=== PATIENT | female | born 1980 | race Caucasian/White ===

== ENCOUNTER → 2025-09-16 | Outpatient (CLI) | payer OTHER, SELFPAY ==
--- OUTSIDE RECORDS SUMMARY | 2025-09-16 09:18 | XMS RPT_ITS | CCD ---
Author Organization [facility] Care Team Providers Care Clinical Account Executive Name Role Phone Chau Trujillo Primary Care Provider Caesar Pineda DO Primary Care Provider Caesar Pineda DO Primary Care Provider [phone] Caesar Pineda DO Primary Care Provider CAESAR PINEDA Referring Unavailable CAESAR PINEDA Attending Unavailable CAESAR PINEDA Primary Care Unavailable Amanda PAINTINGS RESTORER.Shirlene YATES Unavailable Mike PAINTINGS RESTORER.Micha YATES Unavailable ROWENA VAZQUEZ Attending Unavailable CAESAR PINEDA Primary Care Unavailable CAESAR PINEDA Referring Unavailable HILDA HINOJOSA Attending Unavailable CAESAR PINEDA Primary Care Unavailable Caesar Pineda DO Primary Care Provider DAYLIN MONTERO Referring Unavailable CAESAR PINEDA Primary Care Unavailkelsey e CAESAR PINEDA Attending Unavailable CAESAR PINEDA Primary Care Unavailable ROWENA VAZQUEZ Referring Unavailable CAESAR PINEDA Primary Care Unavailable CAESAR PINEDA Primary Care Unavailable CAESAR PINEDA Attending Unavailable Allergies Allergy Classification Reported Allergen(s) Allergy Type Date of Onset Reaction(s) Facility (1 source) ALLERGIES NOT ON FILE; Translations: [ALLERGIES NOT ON FILE] Propensity to adverse reactions (disorder) [facility] Medications Current Medications Medication Drug Class(es) Dates Sig (Normalized) Sig (Original) ALPRAZolam 0.25 mg disintegrating oral tablet (2 sources) Benzodiazepine Start: 09-07-2020 ALPRAZolam (NIRAVAM) dissolvable tablet 0.25 mg Start: 08-13-2020 ALPRAZolam (NI RAVAM) dissolvable tablet 0.25 mg NEREYDA ROOT EXTRACT ORAL (3 sources) Start: 02-07-2025 ASHCHARY RO OT EXTRACT ORAL 02/07/2025 Active 24 hr buPROPion hydrochloride 150 mg extended release oral tablet (5 sources) Aminoketone take 1 tablet by mouth once daily in the morning buPROPion (WELLBUTRIN XL) 150 MG extended release tablet Take 150 mg by mouth every morning 0 Active Calcium Carb-Cholecalciferol (CALCIUM 1000 + D) 1000-800 MG-UNIT TABS (10 sources) take 2 tablets by mouth once daily Calcium Carb-Cholecalcifero l (CALCIUM 1000 + D) 1000-800 MG-UNIT TABS Take 2 tablets by mouth daily 0 Active take 2 tablets by mouth twice da milan Calcium Carb-Cholecalciferol (CALCIUM 1000 + D) 1000-800 MG-UNIT TABS Take 2 tablets by mouth 2 times daily 0 Active Calcium Carb-Cho lecalciferol (CALCIUM 1000 + D) 1000-800 MG-UNIT TABS Take by mouth 0 Active Calcium Carbonate / vitamin D3 (16 sources) calcium carbonat e/vitamin D3 (CALCIUM 600 + D ORAL) Take by mouth twice daily. Active calcium carbonat e/vitamin D3 (CALCIUM 600 + D ORAL) Take by mouth twice daily. 0 Active Comment on above: Take by mouth twice daily. calcium chloride 0.0014 meq/ml / potassium chloride 0.004 meq/ml / sodium chloride 0.103 meq/ml / sodium lactate 0.028 meq/ml injectable solution (2 sources) Start: 09-07-2020 lactated ringers infusion Start: 08-13-2020 lactated ringe rs infusion clobetasol propionate 0.0005 mg/mg topical ointment (4 sources) Corticosteroid Start: 08-06-2024 clobetasol (TE MOVATE) 0.05 % ointment Apply 1 application to affected area two times a day. 45 g 1 08/06/2024 Active 1 ml diphenhydrAMINE hydrochloride 50 mg/ml cartridge (2 sources) Histamine-1 Receptor Antagonist Start: 09-07-2020 End: 09-07-2020 diphenhydrAMINE (BENADRYL) injection 12.5 mg Start: 08-13-2020 End: 08-13-2020 diphenhydrAMINE (BENADRYL) i njection 12.5 mg 2 ml fentaNYL 0.05 mg/ml injection (4 sources) Opioid Agonist Start: 09-07-2020 fentaNYL (SUBL IMAZE) injection 25 mcg Start: 09-07-2020 fentaNYL (SUBL IMAZE) injection 50 mcg Start: 08-13-2020 fentaNYL (SUBL IMAZE) injection 25 mcg Start: 08-13-2020 fentaNYL (SUBL IMAZE) injection 50 mcg 1 ml hydrALAZINE hydrochloride 20 mg/ml injection (2 sources) Arteriolar Vasodilator Start: 09-07-2020 hydrALAZINE (APRESOLINE) injection 5 mg Start: 08-13-2020 hydrALAZINE (A PRESOLINE) injection 5 mg 1 ml HYDROmorphone hydrochloride 1 mg/ml cartridge (4 sources) Opioid Agonist Start: 09-07-2020 HYDROmorphone (DILAUDID) injection 0.25 mg Start: 09-07-2020 HYDROmorphone (DILAUDID) injection 0.5 mg Start: 08-13-2020 HYDROmorphone (DILAUDID) injection 0.5 mg Start: 08-13-2020 HYDROmorphone (DILAUDID) injection 0.25 mg 4 ml labetalol hydrochloride 5 mg/ml cartridge (2 sources) beta-Adrenergic Brendan Start: 09-07-2020 labetalol (NORMODYNE;TRANDATE) injection 5 mg Start: 08-13-2020 labetalol (NOR MODYNE;TRANDATE) injection 5 mg 10 ml lidocaine hydrochloride 10 mg/ml injection (2 sources) Antiarrhythmic, Amide Local Anesthetic Start: 09-07-2020 End: 09-07-2020 lidocaine PF 1 % injection 1 mL Start: 08-13-2020 End: 08-13-2020 lidocaine PF 1 % injection 1 mL lidocaine 200 mg, sodium bicarbonate 10 mEq in NaCl 0.9% 500 mL solution (TUMESCENT WITHOUT EPINEPHrine) (1 source) Start: 06-05-2022 End: 06-05-2022 lidocaine 200 mg, sodium bicarbonate 10 mEq in NaCl 0.9% 500 mL solution (TUMESCENT WITHOUT EPINEPHrine) lidocaine 400 mg, sodium bicarbonate 20 mEq in NaCl 0.9% 1,000 mL solution (TUMESCENT WITHOUT EPINEPHrine) (1 source) Start: 06-05-2022 End: 06-05-2022 lidocaine 400 mg, sodium bicarbonate 20 mEq in NaCl 0.9% 1,000 mL solution (TUMESCENT WITHOUT EPINEPHrine) 1 ml meperidine hydrochloride 25 mg/ml cartridge (2 sources) Opioid Agonist Start: 09-07-2020 meperidine (DE MEROL) injection 12.5 mg Start: 08-13-2020 meperidine (DE MEROL) injection 12.5 mg Multiple Vitamin (MULTI-VITAMIN DAILY PO) (10 sources) take 1 tablet by tesha th once daily Multiple Vitamin (MULTI-VITAMIN DAILY PO) Take 1 tablet by mouth daily 0 Active Multiple Vitamin (MULTI-VITAMIN DAILY PO) Take by mouth 0 Active Multivitamin capsule (15 sources) take 1 capsule by mo uth once daily Multivitamin capsule Take 1 capsule by mouth once daily. Active take 1 capsule by mouth once darnell ly Multivitamin capsule Take 1 capsule by mouth once daily. 0 Active Comment on above: Take 1 capsule by mo uth once daily. 2 ml ondansetron 2 mg/ml injection (2 sources) Serotonin-3 Receptor Antagonist Start: 09-07-2020 End: 09-07-2020 ondansetron (ZOFRAN) injection 4 mg Start: 08-13-2020 End: 08-13-2020 ondansetron (ZOFRAN) injecti on 4 mg oxyCODONE (1 source) Opioid Agonist Start: 08-13-2020 End: 08-13-2020 oxyCODONE (ROXICODONE) immediate release tablet 5 mg 1 ml promethazine hydrochloride 25 mg/ml injection (2 sources) Phenothiazine Start: 09-07-2020 End: 09-07-2020 promethazine (PHENERGAN) injection 6.25 mg Start: 08-13-2020 End: 08-13-2020 promethazine (PHENERGAN) inj ection 6.25 mg 3 ml sodium chloride 9 mg/ml injection (4 sources) Start: 09-07-2020 sodium chlorid e flush 0.9 % injection 10 mL Start: 08-13-2020 sodium chlorid e flush 0.9 % injection 10 mL Completed/Discontinued Medications Medication Drug Class(es) Dates Sig (Normalized) Sig (Original) acetaminophen 500 mg oral tablet (2 sources) Start: 09-07-2020 End: 09-07-2020 acetaminophen (TYLENOL) tablet 1,000 mg Start: 08-13-2020 End: 08-13-2020 acetaminophen (TYLENOL) tabl et 1,000 mg aspirin 81 mg delayed release oral tablet (16 sources) Platelet Aggregation Inhibitor, Nonsteroidal Anti-inflammatory Drug Start: 09-07-2020 End: 02-19-2025 take 1 tablet by mouth once daily aspirin, enteric coated (ASPIRIN, ENTERIC COATED) 81 mg EC tablet Take 1 tablet by mouth once daily. 09/07/2020 02/19/2025 Discontinued Comment on above: Take 81 mg by mouth once daily. ceFAZolin 2000 mg injection (1 source) Cephalosporin Antibacterial Start: 08-13-2020 End: 08-13-2020 ceFAZolin (ANCEF) 2 g in dextrose 4 % 100 mL IVPB (premix) clopidogrel 75 mg oral tablet (11 sources) P2Y12 Platelet Inhibitor Start: 01-17-2021 End: 02-19-2025 take 1 tablet by mouth once daily clopidogrel (PLAVIX) 75 mg tablet Take 1 tablet by mouth once daily. 01/17/2021 02/19/2025 Discontinued Start: 09-07-2020 clopidogrel (P LAVIX) tablet 300 mg Start: 09-07-2020 take 1 tablet by tseha th once daily clopidogrel (PLAVIX) 75 MG tablet Take 1 tablet by mouth daily 30 tablet 3 09/07/2020 Active DULoxetine 20 mg delayed release oral capsule (9 sources) Serotonin and Norepinephrine Reuptake Inhibitor Start: 01-29-2024 End: 02-19-2025 take 2 capsules by mouth once daily DULoxetine (CYMBALTA) 20 mg capsule Indications: Fatigue, unspecified type Take 2 capsules by mouth once daily. 180 capsule 3 01/29/2024 02/19/2025 Discontinued Start: 01-25-2024 End: 01-29-2024 take 2 capsules by mouth twice daily DULoxetine (CYMBALTA) 20 mg capsule Indications: Fatigue, unspecified type Take 2 capsules by mouth two times a day. 360 capsule 3 01/25/2024 01/29/2024 Discontinued Start: 09-28-2023 End: 01-25-2024 take 1 capsule by mouth once daily DULoxetine (CYMBALTA) 20 mg capsule Indications: Fatigue, unspecified type Take 1 capsule by mouth once daily. 30 capsule 5 09/28/2023 01/25/2024 Discontinued Start: 12-12-2022 End: 01-11-2023 take 1 capsule by mouth once daily DULoxetine (CYMBALTA) 20 mg capsule Indications: Fatigue, unspecified type Take 1 capsule by mouth once daily. 30 capsule 5 12/12/2022 01/11/2023 Active Comment on above: Take 1 capsule by mo [facility] once daily. famotidine 20 mg oral tablet (2 sources) Histamine-2 Receptor Antagonist Start: 09-07-2020 End: 09-07-2020 famotidine (PEPCID) tablet 20 mg Start: 08-13-2020 End: 08-13-2020 famotidine (PEPCID) tablet 2 0 mg FLUoxetine 10 mg oral capsule (8 sources) Serotonin Reuptake Inhibitor Start: 04-18-2022 End: 12-12-2022 take 2 capsules by mouth once daily FLUoxetine (PROZAC) 10 mg capsule Take 2 capsules by mouth once daily. 90 capsule 3 04/18/2022 12/12/2022 Discontinued Start: 08-15-2021 End: 04-18-2022 take 1 capsule by mouth once daily FLUoxetine (PROZAC) 10 mg capsule Take 1 capsule by mouth once daily. 90 capsule 3 08/15/2021 04/18/2022 Discontinued Comment on above: Take 2 capsules by m [facility] once daily. Take 1 capsule by mo [facility] once daily. gabapentin 100 mg oral capsule (2 sources) Anti-epileptic Agent Start: 09-07-2020 End: 09-07-2020 gabapentin (NEURONTIN) capsule 100 mg Start: 08-13-2020 End: 08-13-2020 gabapentin (NEURONTIN) capsu le 100 mg iopamidol (ISOVUE-370) 76 % injection 75 mL (1 source) Start: 06-10-2020 End: 06-10-2020 iopamidol (ISOVUE-370) 76 % injection 75 mL iv contrast (will be provided with radiology test) (1 source) Start: 03-13-2025 End: 03-14-2025 iv contrast (will be provided with radiology test) Indications: At high risk for breast cancer MRI Breast ASHLEY Inject, intravenously, once for 1 dose. No IV access, insert saline lock prior to the beginning of sedation, infusion, injection of imaging exam. Discontinue saline lock post exam. If Pt has a central line or IVAD, may access for administration according to line specific nursing protocol. Once exam is complete flush line and de-access according to line specific nursing protocol in the MR contrast administration guidelines link 1 each 03/13/2025 03/14/2025 vitamin b12 1 mg/ml injectable solution (1 source) Vitamin B12 Start: 12-12-2022 End: 12-12-2022 cyanocobalamin 1,000 mcg injection Start: 12-12-2022 End: 12-12-2022 cyanocobalamin 1,000 mcg inj ection Problems Active Problems Problem Classification Problem Date Documented Date Episodic/Chronic Anxiety disorders (1 source) Generalized anxiety disorder; Translations: [PARADISE (generalized anxiety disorder)] Onset: 07-31-2025 Chronic Disorders of lipid metabolism (1 source) Mixed hyperlipidemia; Translations: [Mixed hyperlipidemia] 02-12-2024 Chronic Malaise and fatigue (2 sources) Fatigue; Translations: [Other fatigue] Episodic Nonmalignant breast conditions (3 sources) Breast finding ; Translations: [Dense breast tissue] Onset: 04-05-2025 06-28-2024 Episodic Other aftercare (1 source) Surgical follow-up; Translations: [Encounter for surgical aftercare following surgery on the circulatory system] Episodic Other aftercare (1 source) Postoperative visit; Translations: [Encounter for other specified surgical aftercare] Episodic Other diseases of veins and lymphatics (1 source) Obstruction of iliac vein; Translations: [Obstruction of iliac vein] Other female genital disorders (1 source) Vaginal hymen finding; Translations: [Other specified noninflammatory disorders of vagina] Episodic Other liver diseases (1 source) Elevated liver enzymes level; Translations: [Abnormal levels of other serum enzymes] 02-12-2024 Episodic Other nutritional; endocrine; and metabolic disorders (5 sources) Inherited disorder of folate metabolism; 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 ] Onset: 08-05-2018 07-05-2020 Chronic Residual codes; unclassified (3 sources) At high risk for breast cancer; Translations: [Other specified personal risk factors, not elsewhere classified] Onset: 04-05-2025 04-05-2025 Episodic Residual codes; unclassified (2 sources) Family history of breast cancer; Translations: [Family history of malignant neoplasm of breast] Onset: 04-05-2025 04-05-2025 Episodic Residual codes; unclassified (1 source) Other specified personal risk factors, not elsewhere classified; Translations: [At high risk for breast cancer] Onset: 03-13-2025 Episodic Unclassified (1 source) Dense breast tissue; Translations: [Dense breast tissue] Onset: 03-13-2025 Varicose veins of lower extremity (4 sources) Varicose veins of lower extremity; Translations: [Varicose veins of left lower extremity with other complications] Episodic Past or Other Problems Problem Classification Problem Date Documented Date Episodic/Chronic Inflammatory diseases of female pelvic organs (6 sources) Acute vaginitis; Translations: [Acute vaginitis] Onset: 08-06-2024 08-06-2024 Episodic Other complications of (20 sources) Multigravida of advanced maternal age; Translations: [Supervision of elderly multigravida, first trimester] Onset: 05-31-2016 Resolved: 08-05-2018 07-05-2020 Episodic Other complications of (20 sources) Inherited disorder of folate metabolism; Translations: [Endocrine, nutritional and metabolic diseases complicating , unspecified trimester] Onset: 08-05-2018 07-05-2020 Episodic Other diseases of veins and lymphatics (8 sources) Obstruction of iliac vein; Translations: [Compression of vein] Onset: 09-07-2020 09-07-2020 Episodic Other female genital disorders (10 sources) Pelvic congestion syndrome; Translations: [Other specified conditions associated with female genital organs and menstrual cycle] Onset: 08-14-2020 08-14-2020 Episodic Other inflammatory condition of skin (5 sources) Pruritus ani; Translations: [Pruritus ani] Onset: 08-06-2024 08-06-2024 Episodic Other and delivery including normal (20 sources) Normal labor; Translations: [Encounter for full-term uncomplicated delivery] Onset: 03-11-2019 07-05-2020 Episodic Other screening for suspected conditions (not mental disorders or infectious disease) (14 sources) Patient encounter status; Translations: [Encounter for screening mammogram for malignant neoplasm of breast] Onset: 03-07-2024 10-03-2023 Episodic Unclassified (2 sources) Patient encounter status 04-05-2025 Results Test Name Value Interpretation Reference Range Facil ity CNOVon 07-31-2025 CNOV Office Visit ([facility]) GUSBAM ([id number]) 1980 F Date Time Provider Department 07/31/25 11:15 AM CAESAR PINEDA [facility] During your visit today, we recorded the following information about you: Pulse Blood pressure Weight Height 79/minute 130/70 65.2 kg 1.727 m Last Period 07/10/25 Caesar Pineda, DO 07/31/2025 12:17 PM Signed Memory Problems (Patient having issues with memory,lots of brain fog since perimenopause ) Anxiety The history is provided by the patient. No seismic interpreter was used. Anxiety Pertinent negatives include no agitation, confusion, delusions, hallucinations, intoxication, loss of consciousness, seizures, self-injury, somnolence, violence or weakness. HISTORY REVIEWED PAST MEDICAL HISTORY Diagnosis Date Abnormal Pap smear of cervix Blood dyscrasia mthfr Dense breast tissue 04/05/2025 Pelvic congestion syndrome hemorrhage (HCC) PAST SURGICAL HISTORY Procedure Laterality Date ENDOVENOUS RF ABLATION SAPHENOUS VEIN Left 05/25/2022 left leg, Dr Hunt EXTRACTION ERUPTED TOOTH/EXR FAMILY HISTORY Problem Relation Age of Onset Breast Cancer Mother 52 BRCA negative Coronary Artery Disease Father other (basal cell) Father other (squamous) Father Stroke Brother 48 Melanoma Paternal Aunt cause of Ovarian cancer No Family History Social History Social History Narrative Not on file Allergies: ALLERGIES No Known Allergies Medications: progesterone micronized (PROMETRIUM) 100 mg capsule Take 100 mg by mouth once daily. ASHWAGANDHA ROOT EXTRACT ORAL clobetasol (TEMOVATE) 0.05 % ointment Apply 1 application to affected area two times a day. Multivitamin capsule Take 1 capsule by mouth once daily. calcium carbonate/vitamin D3 (CALCIUM 600 + D ORAL) Take by mouth twice daily. Problem List: ACTIVE PROBLEM LIST At High Risk for Breast Cancer - 04/05/2025 Family History of Breast Cancer - 04/05/2025 Dense Breast Tissue - 04/05/2025 Acute Vaginitis - 08/06/2024 Rectal Itching - 08/06/2024 Normal Labor (Hcc) - 03/11/2019 Comment: GBS+PCN Pit/epi prn AROM after abx Wilkinson (Advanced Maternal Age) Multigravida 35+, First Trimester ([facility]) - 08/05/2018 Comment: Low risk genetic testing Mthfr Deficiency Complicating ([facility]) - 08/05/2018 Comment: Taking aspirin throughout this Review of Systems Neurological: Negative for seizures, loss of consciousness and weakness. Psychiatric/Behavioral : Negative for agitation, confusion, hallucinations and self-injury. The patient is nervous/anxious. Physical Exam Vitals and nursing note reviewed. Constitutional: Appearance: She is well-developed. HENT: Head: Normocephalic and atraumatic. Eyes: Conjunctiva/sclera: Conjunctivae normal. Pupils: Pupils are equal, round, and reactive to light. Cardiovascular: Rate and Rhythm: Normal rate and regular rhythm. Heart sounds: Normal heart sounds. Pulmonary: Effort: Pulmonary effort is normal. Breath sounds: Normal breath sounds. Abdominal: General: Bowel sounds are normal. Palpations: Abdomen is soft. Skin: General: Skin is warm and dry. Findings: No rash. Neurological: Mental Status: She is alert and oriented to person, place, and time. Psychiatric: Behavior: Behavior normal. Thought Content: Thought content normal. Judgment: Judgment normal. Comments: No suicidal or homicidal ideation BP 130/70 (BP Site: Left Arm, BP Position: Sitting) Pulse 79 Ht 172.7 cm (5' 8) Wt 65.2 kg (143 lb 11.8 oz) LMP 07/10/2025 (Exact Date) SpO2 100% BMI 21.86 kg/m? ASSESSMENT/PLAN: 1. PARADISE (generalized anxiety disorder) - ICD9: 300.02, ICD10: F41.1 - uncontrolled start low dose. - FLUOXETINE 10 MG CAPSULE Caesar Pineda DO Allergies As of Date: 07/31/2025 (No Known Allergies) Date Reviewed: 07/31/2025 Reviewed by: Caesar Pineda DO - Fully Assessed Reason for Visit: Memory Problems [3820] Cmt: Patient having issues with memory,lots of brain fog since perimenopause Anxiety [9] Primary Visit Diagnosis:PARADISE (generalized anxiety disorder) [F41.1] Order(s):FLUoxetine (PROZAC) 10 mg capsuleTake 1 capsule by mouth once daily.Disp: 90 capsuleRfl: 3 Prescriptions as of 07/31/2025 - progesterone micronized (PROMETRIUM) 100 mg capsule Take 100 mg by mouth once daily. - FLUoxetine (PROZAC) 10 mg capsule Take 1 capsule by mouth once daily. - ASHWAGANDHA ROOT EXTRACT ORAL - clobetasol (TEMOVATE) 0.05 % ointment Apply 1 application to affected area two times a day. - Multivitamin capsule Take 1 capsule by mouth once daily. - calcium carbonate/vitamin D3 (CALCIUM 600 + D ORAL) Take by mouth twice daily. Problem List As Of Date 07/31/2025 Noted Resolved Multigravida of advanced maternal age in second*05/31/2016 08/05/2018 AMA (advanced maternal age) multigravida 35+, f* (more content not included)... Normal [facility] CT CARDIAC SCORING WO IV CON TRASTon 06-01-2025 CT CARDIAC SCORING WO IV CONTRAST Interpreted By: Micha Moran, STUDY: CT CARDIAC SCORING WO IV CONTRAST; 06/01/2025 8:23 am INDICATION: Signs/Symptoms:rommel galo ,Z13.6 Encounter for screening for cardiovascular disorders COMPARISON: None. ACCESSION NUMBER(S): [id number] ORDERING CLINICIAN: DAYLIN MONTERO TECHNIQUE: Using prospective ECG gating, CT scan of the coronary arteries was performed without intravenous contrast. Coronary calcium scoring was performed according to the method of Agatston. FINDINGS: The score and distribution of calcium in the coronary arteries is as follows: LM 0 LAD 0 LCx 0 RCA 0 Total 0 The visualized mid/lower ascending thoracic aorta measures 3.1 cm in diameter. The heart is normal in size. No pericardial effusion is present. No gross evidence of mediastinal or hilar lymphadenopathy or masses is identified. The visualized segments of the lungs are normally expanded. The visualized subdiaphragmatic structures appear intact. IMPRESSION: 1. Coronary artery calcium score of 0*. *Coronary artery calcium scoring may be helpful in predicting the risk for future coronary heart disease events. According to the [place] [employer] Clinical Expert Consensus Task Force, such testing provides important prognostic information in patients with more than one coronary heart disease risk factor. The coronary artery calcium score correlates with the annual risk of a non-fatal myocardial infarction or coronary heart disease . Coronary artery score Annual Risk 0-99 0.4% 100-399 1.3% >400 2.4% These three breakpoints correspond to lower, intermediate and high risk states for future coronary events. Such information should be used, along with appropriate clinical judgment, to make decisions regarding the intensity of risk factor management strategies to treat blood lipids and to modify other non-lipid coronary risk factors. Reference: [place] P et al. Circulation. 2007; 115:402-426 MACRO: None Signed by: Micha Moran 06/01/2025 3:27 PM Dictation workstation: [id number] [facility] CT for calcium scoring WO co ntrast and CTA W contrast IV Heart and coronary arterieson 06-01-2025 1. Coronary artery calcium score of 0*. *Coronary artery calcium scoring may be helpful in predicting the risk for future coronary heart disease events. According to the [place] [employer] Clinical Expert Consensus Task Force, such testing provides important prognostic information in patients with more than one coronary heart disease risk factor. The coronary artery calcium score correlates with the annual risk of a non-fatal myocardial infarction or coronary heart disease . Coronary artery score Annual Risk 0-99 0.4% 100-399 1.3% >400 2.4% These three breakpoints correspond to lower, intermediate and high risk states for future coronary events. Such information should be used, along with appropriate clinical judgment, to make decisions regarding the intensity of risk factor management strategies to treat blood lipids and to modify other non-lipid coronary risk factors. Reference: [place] P et al. Circulation. 2007; 115:402-426 MACRO: None Signed by: Micha Moran 06/01/2025 3:27 PM Dictation workstation: [id number] Interpreted By: Micha Moran, STUDY: CT CARDIAC SCORING WO IV CONTRAST; 06/01/2025 8:23 am INDICATION: Signs/Symptoms:screeni ng. ,Z13.6 Encounter for screening for cardiovascular disorders COMPARISON: None. ACCESSION NUMBER(S): [id number] ORDERING CLINICIAN: DAYLIN MONTERO TECHNIQUE: Using prospective ECG gating, CT scan of the coronary arteries was performed without intravenous contrast. Coronary calcium scoring was performed according to the method of Agatston. FINDINGS: The score and distribution of calcium in the coronary arteries is as follows: LM 0 LAD 0 LCx 0 RCA 0 Total 0 The visualized mid/lower ascending thoracic aorta measures 3.1 cm in diameter. The heart is normal in size. No pericardial effusion is present. No gross evidence of mediastinal or hilar lymphadenopathy or masses is identified. The visualized segments of the lungs are normally expanded. The visualized subdiaphragmatic structures appear intact. [facility] Bella Moran MD - 06/01/2025 Interpreted By: Micha Moran, STUDY: CT CARDIAC SCORING WO IV CONTRAST; 06/01/2025 8:23 am INDICATION: Signs/Symptoms:rommel galo ,Z13.6 Encounter for screening for cardiovascular disorders COMPARISON: None. ACCESSION NUMBER(S): [id number] ORDERING CLINICIAN: DAYLIN MONTERO TECHNIQUE: Using prospective ECG gating, CT scan of the coronary arteries was performed without intravenous contrast. Coronary calcium scoring was performed according to the method of Agatston. FINDINGS: The score and distribution of calcium in the coronary arteries is as follows: LM 0 LAD 0 LCx 0 RCA 0 Total 0 The visualized mid/lower ascending thoracic aorta measures 3.1 cm in diameter. The heart is normal in size. No pericardial effusion is present. No gross evidence of mediastinal or hilar lymphadenopathy or masses is identified. The visualized segments of the lungs are normally expanded. The visualized subdiaphragmatic structures appear intact. IMPRESSION: 1. Coronary artery calcium score of 0*. *Coronary artery calcium scoring may be helpful in predicting the risk for future coronary heart disease events. According to the [employer] Clinical Expert Consensus Task Force, such testing provides important prognostic information in patients with more than one coronary heart disease risk factor. The coronary artery calcium score correlates with the annual risk of a non-fatal myocardial infarction or coronary heart disease . Coronary artery score Annual Risk 0-99 0.4% 100-399 1.3% >400 2.4% These three breakpoints correspond to lower, intermediate and high risk states for future coronary events. Such information should be used, along with appropriate clinical judgment, to make decisions regarding the intensity of risk factor management strategies to treat blood lipids and to modify other non-lipid coronary risk factors. Reference: Kenroy P et al. Circulation. 2007; 115:402-426 MACRO: None Signed by: Micha Moran 06/01/2025 3:27 PM Dictation workstation: [id number] [facility] Work Phone: Radiology Study observation (narrative) [facility] Work Phone: CT for calcium scoring WO co ntrast and CTA W contrast IV Heart and coronary arteriesOrdered By: Bella Moran on 06-01-[address] [facility] Work Phone: DBT Breast - bilateral susanae edwige 03-17-2025 IMPRESSION: There is no mammographic evidence of malignancy in either breast. Routine screening mammogram is recommended. Annual mammogram will be due in 1 year. BI-RADS Category 1: Negative RISK: Based on the [facility] risk assessment model, this patient has a 20.7% lifetime risk of developing breast cancer. However, this is only an estimate based on available history provided on the patient's questionnaire. Because patients with a lifetime risk of 20% or greater may benefit from additional supplemental screening, we encourage a full breast clinical evaluation and comprehensive breast cancer risk assessment to guide further decision making. For more information regarding the management of patients at high risk for developing breast cancer, providers should refer to the following [facility] Path: Increased Risk for Breast Cancer Care Path v.5. Additionally, a referral to the [facility] is also appropriate. Interpreting Radiologist: Charo Fajardo M.D. Electronically signed on: 03/17/2025 Litigation Associate: UNRULY Transcribe Date/Time: Mar 16 2025 2:45P Dictated by: CHARO FAJARDO MD This examination was interpreted and the report reviewed and electronically signed by: CHARO FAJARDO MD on Mar 17 2025 10:34AM [facility] DIVISION OF RADIOLOGY * * *Final Report* * * DATE OF EXAM: Mar 16 2025 2:55PM [facility] 0582 - [facility] SCREENING W SHAJI / PROCEDURE REASON: Visit for screening mammogram * * * * Physician Interpretation * * * * RESULT: [facility] [address] [place] [address] #[id number] - [facility] SCREENING W SHAJI HISTORY: 45 year-old patient presents for screening. Patient is asymptomatic in both breasts. Patient states no personal history of breast cancer. The patient has a family history of breast cancer. COMPARISON STUDIES: The present examination has been compared to prior imaging studies dated 08/03/2020 (mammogram), 12/06/2021 (mammogram) and 03/07/2024 (mammogram). MAMMOGRAM TECHNIQUE: The study was acquired using full field digital technology and interpreted from soft copy. Digital Breast Tomosynthesis (DBT) images were obtained and used to assist in the interpretation of this examination. MAMMOGRAM FINDINGS: The breasts are heterogeneously dense, which may obscure small masses. No suspicious masses, calcifications or other abnormalities are seen in either breast. There are no significant interval changes. DIVISION OF RADIOLOGY Provider, [facility] - 03/17/2025 * * *Final Report* * * DATE OF EXAM: Mar 16 2025 2:55PM [facility] 0582 - [facility] SCREENING W SHAJI / PROCEDURE REASON: Visit for screening mammogram * * * * Physician Interpretation * * * * RESULT: [facility] [address] [place] [address] #[id number] - [facility] SCREENING W SHAJI HISTORY: 45 year-old patient presents for screening. Patient is asymptomatic in both breasts. Patient states no personal history of breast cancer. The patient has a family history of breast cancer. COMPARISON STUDIES: The present examination has been compared to prior imaging studies dated 08/03/2020 (mammogram), 12/06/2021 (mammogram) and 03/07/2024 (mammogram). MAMMOGRAM TECHNIQUE: The study was acquired using full field digital technology and interpreted from soft copy. Digital Breast Tomosynthesis (DBT) images were obtained and used to assist in the interpretation of this examination. MAMMOGRAM FINDINGS: The breasts are heterogeneously dense, which may obscure small masses. No suspicious masses, calcifications or other abnormalities are seen in either breast. There are no significant interval changes. IMPRESSION IMPRESSION: There is no mammographic evidence of malignancy in either breast. Routine screening mammogram is recommended. Annual mammogram will be due in 1 year. BI-RADS Category 1: Negative RISK: Based on the [facility] risk assessment model, this patient has a 20.7% lifetime risk of developing breast cancer. However, this is only an estimate based on available history provided on the patient's questionnaire. Because patients with a lifetime risk of 20% or greater may benefit from additional supplemental screening, we encourage a full breast clinical evaluation and comprehensive breast cancer risk assessment to guide further decision making. For more information regarding the management of patients at high risk for developing breast cancer, providers should refer to the following [facility]: Increased Risk for Breast Cancer Care Path v.5. Additionally, a referral to the [facility] is also appropriate. Interpreting Radiologist: Charo Fajardo M.D. Electronically signed on: 03/17/2025 Litigation Associate: UNRULY Transcribe Date/Time: Mar 16 2025 2:45P Dictated by: CHARO FAJARDO MD This examination was interpreted and the report reviewed and electronically signed by: CHARO FAJARDO MD on Mar 17 2025 10:34AM EST [facility] DBT Breast - bilateral scree ningOrdered By: [facility] Provider on 03-17-2025 [facility] DBT Breast - bilateral scree ningon 03-16-2025 Radiology Study observation (narrative) [facility] SCREENING W TOMOon 03-16 [facility] SCREENING W SHAJI * * *Final Report* * * DATE OF EXAM: Mar 16 2025 2:55PM [facility] 0582 - [facility] SCREENING W SHAJI / PROCEDURE REASON: Visit for screening mammogram * * * * Physician Interpretation * * * * RESULT: [facility] [address] [place], [place] [id number] #[id number] - [facility] SCREENING W SHAJI HISTORY: 45 year-old patient presents for screening. Patient is asymptomatic in both breasts. Patient states no personal history of breast cancer. The patient has a family history of breast cancer. COMPARISON STUDIES: The present examination has been compared to prior imaging studies dated 08/03/2020 (mammogram), 12/06/2021 (mammogram) and 03/07/2024 (mammogram). MAMMOGRAM TECHNIQUE: The study was acquired using full field digital technology and interpreted from soft copy. Digital Breast Tomosynthesis (DBT) images were obtained and used to assist in the interpretation of this examination. MAMMOGRAM FINDINGS: The breasts are heterogeneously dense, which may obscure small masses. No suspicious masses, calcifications or other abnormalities are seen in either breast. There are no significant interval changes. IMPRESSION: There is no mammographic evidence of malignancy in either breast. Routine screening mammogram is recommended. Annual mammogram will be due in 1 year. BI-RADS Category 1: Negative RISK: Based on the [facility] risk assessment model, this patient has a 20.7% lifetime risk of developing breast cancer. However, this is only an estimate based on available history provided on the patient's questionnaire. Because patients with a lifetime risk of 20% or greater may benefit from additional supplemental screening, we encourage a full breast clinical evaluation and comprehensive breast cancer risk assessment to guide further decision making. For more information regarding the management of patients at high risk for developing breast cancer, providers should refer to the following [facility] Path: Increased Risk for Breast Cancer Care Path v.5. Additionally, a referral to the [facility] is also appropriate. Interpreting Radiologist: Charo Fajardo M.D. Electronically signed on: 03/17/2025 Litigation Associate: UNRULY Transcribe Date/Time: Mar 16 2025 2:45P Dictated by: CHARO FAJARDO MD This examination was interpreted and the report reviewed and electronically signed by: CHARO FAJARDO MD on Mar 17 2025 10:34AM EST [id number] Normal [facility] CNOVon 03-13-2025 CNOV Office Visit (HEMBAK ) BAM WEBER ([id number]) 1980 F Date Time Provider Department 03/13/25 3:00 PM ROWENA VAZQUEZ During your visit today, we recorded the following information about you: Pulse Blood pressure Weight Height 76/minute 130/85 65.3 kg 1.727 m Rowena Vazquez APRN.CNP 04/05/2025 3:50 PM Signed Rowena Vazquez APRN-[facility] [address] [place], [place] [id number] Date of Visit: 03/13/2025 Patient Name: Bam Weber Date of : 1980 New Patient Visit SUBJECTIVE Chief Complaint: Patient presents with: Consult: Patient presents as a consult HPI Bam Weber is a 45 year old female who presents today for new patient consultation related to family history of breast cancer. Family history includes breast cancer in her mother, diagnosed at age 52, BRCA negative. She does not have a past medical history of breast biopsy. She denies current breast concerns including palpable breast lumps or masses, enlarged lymph nodes, pain, tenderness, skin changes, erythema, nipple discharge or breast trauma. Breast density category C - heterogeneously dense There are no exam notes on file for this visit. AGE AT [place] 8 AGE AT FIRST 34 FAMILY HISTORY OF BREAST CANCER Yes (IF YES) NUMBER OF FIRST DEGREE RELATIVES WITH BREAST CANCER 1 PREVIOUS BREAST BIOPSIES No (IF YES) PREVIOUS BREAST BIOPSY WITH ATYPICAL HYPERPLASIA No RACE [place] MODEL RISK 5 YEAR 2 [place] MODEL RISK LIFETIME 19.6 GENETIC TESTING No Family and personal medical histories reviewed and updated. REVIEW OF SYSTEMS: Complete 10 system ROS done and negative except as stated above in the HPI. Current Outpatient Medications Medication Sig Dispense Refill ASHWAGANDHA ROOT EXTRACT ORAL clobetasol (TEMOVATE) 0.05 % ointment Apply 1 application to affected area two times a day. 45 g 1 Multivitamin capsule Take 1 capsule by mouth once daily. calcium carbonate/vitamin D3 (CALCIUM 600 + D ORAL) Take by mouth twice daily. No current facility-administered medications for this visit. I have performed the physical exam on 03/13/2025 - all new findings noted below. PAST MEDICAL HISTORY Diagnosis Date Abnormal Pap smear of cervix Blood dyscrasia mthfr Dense breast tissue 04/05/2025 Pelvic congestion syndrome hemorrhage (HCC) PAST SURGICAL HISTORY Procedure Laterality Date ENDOVENOUS RF ABLATION SAPHENOUS VEIN Left 05/25/2022 left leg, Dr Hunt EXTRACTION ERUPTED TOOTH/EXR Social History Tobacco Use Smoking status: Never Smokeless tobacco: Never Vaping Use Vaping status: Never Used Substance Use Topics Alcohol use: Yes Comment: social Drug use: No FAMILY HISTORY Problem Relation Age of Onset Breast Cancer Mother 52 BRCA negative Coronary Artery Disease Father other (basal cell) Father other (squamous) Father Stroke Brother 48 Melanoma Paternal Aunt cause of Ovarian cancer No Family History The ROS, medical, surgical, family, and social history were reviewed by Rowena Vazquez APRN.CLINICAL DIRECTOR ALLERGIES No Known Allergies Current Outpatient Medications Medication Sig KWESIA ROOT EXTRACT ORAL clobetasol (TEMOVATE) 0.05 % ointment Apply 1 application to affected area two times a day. Multivitamin capsule Take 1 capsule by mouth once daily. calcium carbonate/vitamin D3 (CALCIUM 600 + D ORAL) Take by mouth twice daily. No current facility-administered medications for this visit. OBJECTIVE BP 130/85 Pulse 76 Ht 172.7 cm (5' 8) Wt 65.3 kg (144 lb) LMP 02/12/2025 (Exact Date) BMI 21.90 kg/m? BMI 21.90 kg/(m2) Physical Exam BREAST EXAM: RIGHT Skin changes: No Nipple retraction / inversion: No Axillary adenopathy: No Supraclavicular adenopathy: No Palpable masses: No Tenderness: No Nipple discharge: No Lymphedema: No LEFT Skin changes: No Nipple retraction / inversion: No Axillary adenopathy: No Supraclavicular adenopathy: No Palpable masses: No Tenderness: No Nipple discharge: No Lymphedema: No The sensitive examination was discussed with the Patient or Patient's Authorized Perinatal Tech. As applicable, any other physician, advance practice provider, medical student, or other health professional student that will be observing or involved in the sensitive examination for educational or training purposes was discussed with the Patient or Authorized Perinatal Tech. The Patient or Authorized Perinatal Tech has agreed to proceed with the sensitive examination. (Sensitive examination includes inspection and/or palpation of the breasts, pelvis, prostate and anorectal regions) ASSESSMENT/PLAN: 1. At high risk for breast cancer - ICD9: V49.89, ICD10: Z91.89 (primary diagnosis) - MRI BREAST WO/W IVCON BILATERAL - IV CONTRAST (RADIOLOGY P (more content not included)... Normal [facility] CNOVon 02-19-2025 CNOV Office Visit (STFLF) BAM WEBER ([id number]) 1980 F Date Time Provider Department 02/19/25 9:45 AM [facility] During your visit today, we recorded the following information about you: Temperature Pulse Blood pressure Weight 98.2 degrees 74/minute 121/78 65.4 kg Last Period 02/12/25 Caesar Pineda DO 02/19/2025 10:13 AM Signed Well Adult (Wellness) The history is provided by the patient. No seismic interpreter was used. HISTORY REVIEWED PAST MEDICAL HISTORY Diagnosis Date Abnormal Pap smear of cervix Blood dyscrasia mthfr Pelvic congestion syndrome hemorrhage (HCC) PAST SURGICAL HISTORY Procedure Laterality Date ENDOVENOUS RF ABLATION SAPHENOUS VEIN Left 05/25/2022 left leg, Dr Hunt EXTRACTION ERUPTED TOOTH/EXR FAMILY HISTORY Problem Relation Age of Onset Breast Cancer Mother Stroke Brother Coronary Artery Disease Father Social History Social History Narrative Not on file Allergies: ALLERGIES No Known Allergies Medications: ASHWAGANDHA ROOT EXTRACT ORAL clobetasol (TEMOVATE) 0.05 % ointment Apply 1 application to affected area two times a day. Multivitamin capsule Take 1 capsule by mouth once daily. calcium carbonate/vitamin D3 (CALCIUM 600 + D ORAL) Take by mouth twice daily. DULoxetine (CYMBALTA) 20 mg capsule Take 2 capsules by mouth once daily. (Patient not taking: Reported on 08/06/2024) aspirin, enteric coated (ASPIRIN, ENTERIC COATED) 81 mg EC tablet Take 1 tablet by mouth once daily. (Patient not taking: Reported on 08/06/2024) clopidogrel (PLAVIX) 75 mg tablet Take 1 tablet by mouth once daily. (Patient not taking: Reported on 08/06/2024) Problem List: ACTIVE PROBLEM LIST Acute Vaginitis - 08/06/2024 Rectal Itching - 08/06/2024 Normal Labor ([facility]) - 03/11/2019 Comment: GBS+PCN Pit/epi prn AROM after abx Wilkinson (Advanced Maternal Age) Multigravida 35+, First Trimester ([facility]) - 08/05/2018 Comment: Low risk genetic testing Mthfr Deficiency Complicating ([facility]) - 08/05/2018 Comment: Taking aspirin throughout this Review of Systems All other systems reviewed and are negative. Physical Exam Vitals and nursing note reviewed. Constitutional: Appearance: Normal appearance. She is well-developed and normal weight. HENT: Head: Normocephalic and atraumatic. Right Ear: Tympanic membrane, ear canal and external ear normal. Left Ear: Tympanic membrane, ear canal and external ear normal. Nose: Nose normal. No congestion. Mouth/Throat: Mouth: Mucous membranes are moist. Pharynx: Oropharynx is clear. No oropharyngeal exudate. Eyes: Conjunctiva/sclera: Conjunctivae normal. Pupils: Pupils are equal, round, and reactive to light. Cardiovascular: Rate and Rhythm: Normal rate and regular rhythm. Heart sounds: Normal heart sounds. No murmur heard. Pulmonary: Effort: Pulmonary effort is normal. No respiratory distress. Breath sounds: Normal breath sounds. No wheezing or rales. Chest: Chest wall: No tenderness. Abdominal: General: Bowel sounds are normal. Palpations: Abdomen is soft. Tenderness: There is no guarding or rebound. Musculoskeletal: General: No swelling or tenderness. Normal range of motion. Cervical back: Normal range of motion and neck supple. Lymphadenopathy: Cervical: No cervical adenopathy. Skin: General: Skin is warm and dry. Capillary Refill: Capillary refill takes less than 2 seconds. Findings: No erythema or rash. Neurological: General: No focal deficit present. Mental Status: She is alert and oriented to person, place, and time. Mental status is at baseline. Psychiatric: Mood and Affect: Mood normal. Behavior: Behavior normal. Thought Content: Thought content normal. Judgment: Judgment normal. BP 121/78 (BP Site: Left Arm, BP Position: Sitting, BP Cuff Size: Regular Adult) Pulse 74 Temp 36.8 ?C (98.2 ?F) (Temporal) Wt 65.4 kg (144 lb 2.9 oz) LMP 02/12/2025 (Exact Date) SpO2 100% BMI 21.92 kg/m? ASSESSMENT/PLAN: 1. Well adult exam - ICD9: V70.0, ICD10: Z00.00 - Counseled on healthy diet and regular exercise - COMPLETE BLOOD COUNT AND DIFFERENTIAL - COMPREHENSIVE METABOLIC PANEL - LIPID PANEL, FASTING Caesar Pineda, DO Allergies As of Date: 02/19/2025 (No Known Allergies) Date Reviewed: 02/19/2025 Reviewed by: Caesar Pineda DO - Fully Assessed Reason for Visit: Well Adult [611] Cmt: Wellness Primary Visit Diagnosis:Well adult exam [Z00.00] Order(s):COMPLETE BLOOD COUNT AND DIFFERENTIAL [SQCBCDIF] Order #: [id number] FUTURE COMPREHENSIVE METABOLIC PANEL [SQCMP] Order #: [id number] FUTURE LIPID PANEL, FASTING [SQLIPB] Order #: [id number] FUTURE Prescriptions as of 02/19/2025 - ASHWAGANDHA ROOT EXTRACT ORAL - clobetasol (TEMOVATE) 0.05 % ointment Apply 1 application to affected area two times a day. - Mul (more content not included)... Normal [facility] BACTERIAL VAGINOSIS NAATon 1 10-06-2023 Lactobacillus crispatus+gasseri+j ensenii + Gardnerella vaginalis + Atopobium vaginae rRNA CORRINA+probe Ql (Vag fld) Negative Normal Negative for bacterial vaginosis [facility] Comment on above: Order Comment: Speci men Type: SWAB Ordering Facility: [facility] Address: [address] [place] [address] Performed By: #### B SACHI GALVEZV #### [facility] CLIA [id number] [address] [place] [address] [place] C. trachomatis+N. gonorrhoea e DNA CORRINA+probe Ql (Unsp spec)on 08-06-2024 C. trachomatis rRNA CORRINA+probe Ql (Unsp spec) Negative Normal Negative for Chlamydia trachomatis by amplificaton [facility] Comment on above: Order Comment: Speci men Type: SWAB Ordering Facility: [facility] Address: [address] [place] [address] Performed By: #### 3 6902-5 #### [facility] CLIA [id number] [address] [place] N. gonorrhoeae rRNA CORRINA+probe Ql (Unsp spec) Negative Normal Negative for Neisseria gonorrhoeae by amplification [facility] Comment on above: Order Comment: Speci men Type: SWAB Ordering Facility: [facility] Address: [address] [place] [address] Performed By: #### 3 6902-5 #### [facility] CLIA [id number] [address] [place] GIANCARLO/TRICHOMONAS NAATon 1 10-06-2023 C. glabrata RNA CORRINA+probe Ql (Vag fld) Negative Normal Negative for Giancarlo glabrata [facility] Comment on above: Order Comment: Speci men Type: SWAB Ordering Facility: [facility] Address: [address] [place] [address] Performed By: #### B VAMP, CVTV #### [facility] CLIA [id number] [address] [place] [address] [place] Giancarlo sp DNA CORRINA+probe Ql (Vag fld) Negative Normal Negative for Giancarlo species [facility] Comment on above: Order Comment: Speci men Type: SWAB Ordering Facility: [facility] Address: [address] [place] [address] Performed By: #### B VAMP, CVTV #### [facility] CLIA [id number] [address] [place] [address] [place] T. vaginalis DNA CORRINA+probe Ql (Unsp spec) Negative Normal Negative for Trichomonas vaginalis by amplification [facility] Comment on above: Order Comment: Speci men Type: SWAB Ordering Facility: [facility] Address: [address] [place] [address] Performed By: #### B VAMP, CVTV #### [facility] CLIA [id number] [address] [place] [address] [place] CNOVon 08-06-2024 CNOV Office Visit (OBGWMA ) BAM WEBER ([id number]) 1980 F Date Time Provider Department 08/06/24 3:45 PM HILDA HINOJOSA During your visit today, we recorded the following information about you: Blood pressure Weight Height Last Period 120/62 64.4 kg 1.727 m 07/26/24 Hilda Hinojosa MD 08/06/2024 5:05 PM Signed Chief Complaint: Vulvar itching, discharge LMP: Patient's last menstrual period was 07/26/2024 (exact date). CONTRACEPTION: none HPI: Bam Weber is a 44 year old female who presents with Vulvar itching, discharge. The itching is worse at night REVIEW OF SYSTEMS GENERAL: No weight loss, malaise or fevers RESPIRATORY: Negative for cough, hemoptysis, wheezing, COPD, dyspnea or shortness of breath GI: No nausea, vomiting, or diarrhea : No history of dysuria, frequency or incontinence FINANCIAL AID COORDINATOR: Negative for abnormal vaginal bleeding, abnormal vaginal discharge. LMP: Patient's last menstrual period was 07/26/2024 (exact date). . PSYCH: Negative for sleep disturbance, mood disorder and recent psychosocial stressors All other reviewed and negative other than HPI. PAST MEDICAL HISTORY Diagnosis Date Abnormal Pap smear of cervix Blood dyscrasia mthfr Pelvic congestion syndrome hemorrhage PAST SURGICAL HISTORY Procedure Laterality Date ENDOVENOUS RF ABLATION SAPHENOUS VEIN Left 05/25/2022 left leg, Dr Hunt EXTRACTION ERUPTED TOOTH/EXR Current Outpatient Medications Medication Sig Dispense Refill Multivitamin capsule Take 1 capsule by mouth once daily. calcium carbonate/vitamin D3 (CALCIUM 600 + D ORAL) Take by mouth twice daily. clobetasol (TEMOVATE) 0.05 % ointment Apply 1 application to affected area two times a day. 45 g 1 DULoxetine (CYMBALTA) 20 mg capsule Take 2 capsules by mouth once daily. (Patient not taking: Reported on 08/06/2024) 180 capsule 3 aspirin, enteric coated (ASPIRIN, ENTERIC COATED) 81 mg EC tablet Take 1 tablet by mouth once daily. (Patient not taking: Reported on 08/06/2024) clopidogrel (PLAVIX) 75 mg tablet Take 1 tablet by mouth once daily. (Patient not taking: Reported on 08/06/2024) No current facility-administered medications for this visit. ALLERGIES No Known Allergies Social History Tobacco Use Smoking status: Never Smokeless tobacco: Never Vaping Use Vaping status: Never Used Substance Use Topics Alcohol use: Yes Comment: social Drug use: No PHYSICAL EXAMINATION: BP 120/62 Ht 5' 8 (1.73m) Wt 142 lb (64.4kg) LMP 07/26/2024 BMI 21.60 kg/(m2). General: healthy, alert, cooperative, pleasant, in no acute distress Mood: euthymic Genital Urinary: Females: Mary Ann: There is epithelial thickening of the perianal skin; small external hemorrhoid Urethra: normal meatus, no caruncle, no discharge, non-tender, no masses, no scarring Bladder: non-tender Vagina: no lesion, minimal discharge Cervix: no inflammation, no discharge, no lesions, no stenosis Uterus: normal size, shape, consistency, and position, no palpable masses, normal mobility, good decent Adnexa: non-tender bilaterally, no masses Skin: [place], warm, dry, good turgor ASSESSMENT/PLAN: 1. Acute vaginitis - ICD9: 616.10, ICD10: N76.0 (primary diagnosis) - I doubt there is significant infection - GIANCARLO/TRICHOMONAS NAAT - BACTERIAL VAGINOSIS NAAT - GONORRHEA/CHLAMYDIA NAAT 2. Rectal itching - ICD9: 698.0, ICD10: L29.0 - Clobetasol ointment BID x 8 weeks No follow-ups on file. Hilda Hinojosa MD Allergies As of Date: 08/06/2024 (No Known Allergies) Date Reviewed: 08/06/2024 Reviewed by: Mitzi Carvajal LPN - Fully Assessed Reason for Visit: Consult [173] Cmt: C/o vaginal discharge and itching Primary Visit Diagnosis:Acute vaginitis [N76.0] Other Visit Diagnosis:Rectal itching [L29.0] Order(s):clobetasol (TEMOVATE) 0.05 % ointmentApply 1 application to affected area two times a day.Disp: 45 gRfl: 1 GIANCARLO/TRICHOMONAS NAAT [SQCVTV] Order #: [id number]. #:[id number] BACTERIAL VAGINOSIS NAAT [SQBVAMP] Order #: [id number]. #:[id number] GONORRHEA/CHLAMYDIA NAAT [SQGCCT] Order #: [id number]. #:[id number] Prescriptions as of 08/06/2024 - clobetasol (TEMOVATE) 0.05 % ointment Apply 1 application to affected area two times a day. - DULoxetine (CYMBALTA) 20 mg capsule Take 2 capsules by mouth once daily. - aspirin, enteric coated (ASPIRIN, ENTERIC COATED) 81 mg EC tablet Take 1 tablet by mouth once daily. - clopidogrel (PLAVIX) 75 mg tablet Take 1 tablet by mouth once daily. - Multivitamin capsule Take 1 capsule by mouth once daily. - calcium carbonate/vitamin D3 (CALCIUM 600 + D ORAL) Take by mouth twice daily. Problem List As Of Date 08/06/2024 Noted Resolved Multigravida of advanced maternal age in second*05/31/2016 08/05/2018 AMA (advanced maternal age) multigr (more content not included)... Normal [facility] DBT Breast - bilateral scree jmgon 03-07-2024 No mammographic evidence of malignancy. ASSESSMENT: Category 1 Negative RECOMMENDATION: Routine screening mammogram in 1 year. Bilateral CANCER RISK ASSESSMENT: This risk assessment is based on patient provided information collected in a risk survey taken at the time of this examination. LIFETIME BREAST CANCER RISK: Arielle: 32.16% - If greater than or equal to 20%, consider annual mammogram and annual screening Breast MRI or follow up in high risk clinic. Is the patient at elevated risk based on the HBOC criteria? No (Hereditary Breast and Ovarian Cancer) - If Yes, consider genetic counseling and testing with high risk follow up. Is the patient at elevated risk based on the Osuna Syndrome criteria? No - If Yes, consider genetic counseling and testing with high risk follow up. Report Dictated on Electronically Signed By: Oni Hood MD Electronically Signed Date/Time: 03/07/2024 10:55 AM [facility] Patient Name: BAM WEBER : 1980 Exam Date/Time: 03/07/2024 10:10 Procedure: BI MAMMOGRAM SCREENING TOMOSYNTHESIS BILATERAL Ordering Provider: PINEDA AARON Reason For Exam: z12.31 Image views: 2D Bilateral CC and MLO views were acquired. 3D Bilateral CC and MLO views were acquired. Images were reviewed with CAD. Markings on images: BB's = Nipples; skin lesions [place] = Palpable Line = Scar COMPARISON: 2021; 2012 TISSUE DENSITY: BIRADS C - The breast tissue is heterogeneously dense, which could obscure underlying abnormalities. FINDINGS: No suspicious masses, architectural distortions or suspiciously clustered microcalcifications are identified. There are no significant changes when compared with prior studies. [facility] Oni Hood MD - 03/07/2024 [facility] 1980 [id number] Exam Date/Time: 03/07/2024 10:10 Procedure: BI MAMMOGRAM SCREENING TOMOSYNTHESIS BILATERAL Ordering Provider: PINEDA AARON Reason For Exam: z12.31 Image views: 2D Bilateral CC and MLO views were acquired. 3D Bilateral CC and MLO views were acquired. Images were reviewed with CAD. Markings on images: BB's = Nipples; skin lesions [place] = Palpable Line = Scar COMPARISON: 2021; 2012 TISSUE DENSITY: BIRADS C - The breast tissue is heterogeneously dense, which could obscure underlying abnormalities. FINDINGS: No suspicious masses, architectural distortions or suspiciously clustered microcalcifications are identified. There are no significant changes when compared with prior studies. IMPRESSION: No mammographic evidence of malignancy. ASSESSMENT: Category 1 Negative RECOMMENDATION: Routine screening mammogram in 1 year. Bilateral CANCER RISK ASSESSMENT: This risk assessment is based on patient provided information collected in a risk survey taken at the time of this examination. LIFETIME BREAST CANCER RISK: Arielle: 32.16% - If greater than or equal to 20%, consider annual mammogram and annual screening Breast MRI or follow up in high risk clinic. Is the patient at elevated risk based on the HBOC criteria? No (Hereditary Breast and Ovarian Cancer) - If Yes, consider genetic counseling and testing with high risk follow up. Is the patient at elevated risk based on the Osuna Syndrome criteria? No - If Yes, consider genetic counseling and testing with high risk follow up. Report Dictated on Electronically Signed By: Oni Hood MD Electronically Signed Date/Time: 03/07/2024 10:55 AM EDT [facility] Radiology Study observation (narrative) [facility] DBT Breast - bilateral scree ningOrdered By: Oni Hood on 03-07-2024 [facility] [employer] Work Phone: CBC W Auto Differential pane l (Bld)on 02-06-2024 Basophils (Bld) [#/Vol] 0.05 10*3/uL [facility] Basophils/100 WBC (Bld) 0.9 % [facility] Differential cell count method Nom (Bld) Auto [facility] Eosinophils (Bld) [#/Vol] 0.12 10*3/uL [facility] Eosinophils/100 WBC (Bld) 2.2 % [facility] Erythrocyte distribution width (RBC) [Ratio] 12.7 % 11.5 - 15.0 % [facility] Hematocrit (Bld) [Volume fraction] 43.3 % 36.0 - 46.0 % [facility] Hemoglobin (Bld) [Mass/Vol] 14.0 g/dL 11.5 - 15.5 g/dL [facility] Immature granulocytes (Bld) [#/Vol] NINF [facility] Immature granulocytes/100 WBC (Bld) 0.4 % [facility] Lymphocytes (Bld) [#/Vol] 1.76 10*3/uL [facility] Lymphocytes/100 WBC (Bld) 31.9 % [facility] MCH (RBC) [Entitic mass] 31.8 pg 26.0 - 34.0 pg [facility] MCHC (RBC) [Mass/Vol] 32.3 g/dL 30.5 - 36.0 g/dL [facility] MCV (RBC) [Entitic vol] 98.4 fL 80.0 - 100.0 fL [facility] Monocytes (Bld) [#/Vol] 0.42 10*3/uL [facility] Monocytes/100 WBC (Bld) 7.6 % [facility] Neutrophils (Bld) [#/Vol] 3.14 10*3/uL [facility] Neutrophils/100 WBC (Bld) 57.0 % [facility] Nucleated RBC (Bld) [#/Vol] NINF [facility] Nucleated RBC/100 WBC (Bld) [Ratio] 0.0 % /100 WBC [facility] Platelet mean volume (Bld) [Entitic vol] 10.4 fL 9.0 - 12.7 fL [facility] Platelets (Bld) [#/Vol] 295 10*3/uL [facility] RBC (Bld) [#/Vol] 4.40 10*6/uL 3.90 - 5.20 m/uL [facility] WBC (Bld) [#/Vol] 5.51 10*3/uL [facility] Comprehensive metabolic 2000 panelon 02-06-2024 Albumin [Mass/Vol] 4.6 g/dL 3.9 - 4.9 g/dL Cl [facility] ALP [Catalytic activity/Vol] 58 U/L 34 - 123 U/L [facility] ALT With P-5'-P [Catalytic activity/Vol] 56 U/L High 7 - 38 U/L [facility] Anion gap [Moles/Vol] 9 mmol/L 9 - 18 mmol/L [facility] AST With P-5'-P [Catalytic activity/Vol] 34 U/L 13 - 35 U/L [facility] Bilirubin [Mass/Vol] 0.4 mg/dL 0.2 - 1.3 mg/dL [facility] Calcium [Mass/Vol] 9.5 mg/dL 8.5 - 10.2 mg/dL [facility] Chloride [Moles/Vol] 102 mmol/L 97 - 105 mmol/L [facility] CO2 [Moles/Vol] 28 mmol/L 22 - 30 mmol/L [facility] Creatinine [Mass/Vol] 0.82 mg/dL 0.58 - 0.96 mg/dL [facility] GFR/1.73 sq M.predicted among non-blacks MDRD (S/P/Bld) [Vol rate/Area] 89 mL/min/{1.73_m2} - PINF [facility] Comment on above: Estimated Glomerular Filtration Rate (eGFR) is calculated using the 2020 CKD-EPI creatinine equation. This equation utilizes serum creatinine, sex, and age as parameters. The creatinine assay has traceable calibration to isotope dilution-mass spectrometry. Refer to KDIGO guidelines for clinical interpretation. In patients with unstable renal function, e.g. those with acute kidney injury, the eGFR may not accurately reflect actual GFR. Glucose [Mass/Vol] 90 mg/dL 74 - 99 mg/dL [facility] Comment on above: The [place] Diabete s Association (ADA) provides guidance for cutoff values for fasting glucose and random glucose. The ADA defines fasting as no caloric intake for at least 8 hours. Fasting plasma glucose results between 100 to 125 mg/dL indicate increased risk for diabetes (prediabetes). Fasting plasma glucose results greater than or equal to 126 mg/dL meet the criteria for diagnosis of diabetes. In the absence of unequivocal hyperglycemia, results should be confirmed by repeat testing. In a patient with classic symptoms of hyperglycemia or hyperglycemic crisis, random plasma glucose results greater than or equal to 200 mg/dL meet the criteria for diagnosis of diabetes. Reference: Standards of Medical Care in Diabetes 2016, [place] Diabetes Association. Diabetes Care. 2016.39(Suppl 1). Potassium [Moles/Vol] 4.2 mmol/L 3.7 - 5.1 mmol/L [facility] Protein [Mass/Vol] 6.9 g/dL 6.3 - 8.0 g/dL [facility] Sodium [Moles/Vol] 139 mmol/L 136 - 144 mmol/L [facility] Urea nitrogen [Mass/Vol] 15 mg/dL 7 - 21 mg/dL [facility] Lipid 1996 panelon 4 Cholesterol [Mass/Vol] 249 mg/dL High NINF - 200 mg/dL [facility] Comment on above: <200 mg/dL, Desirabl e 200-239 mg/dL, Borderline high >239 mg/dL, High Cholesterol in HDL [Mass/Vol] 99 mg/dL 39 - PINF mg/dL [facility] Comment on above: 40-59 mg/dL, Accepta ble >59 mg/dL, High: Negative risk factor for coronary heart disease <40 mg/dL, Low: Positive risk factor for coronary heart disease Cholesterol in LDL [Mass/Vol] 134 mg/dL High NINF - 100 mg/dL [facility] Comment on above: <100 mg/dL, Optimal 100-129 mg/dL, Near optimal/above optimal 130-159 mg/dL, Borderline high 160-189 mg/dL, High >189 mg/dL, Very high Secondary prevention optimal LDL Cholesterol levels are recommended to be < 70 mg/dL Cholesterol in LDL/Cholesterol in HDL [Mass ratio] 1.35 {ratio} NINF - 2.54 [facility] Comment on above: Reference: 1. National Cholesterol Education Program ATP III Guideline At-A-Glance Quick Desk Reference: National Heart, Lung, and Blood [place]. National Institutes of Health. 2001: NIH Publication No. 01-3305. 2. An International Atherosclerosis Society position paper: global recommendations for the management of dyslipidemia: executive summary, Atherosclerosis. 2014: 232(2):410-413. Cholesterol in VLDL [Mass/Vol] 16 mg/dL NINF - 30 mg/dL [facility] Cholesterol non HDL [Mass/Vol] 150 mg/dL High NINF - 130 mg/dL [facility] Comment on above: <130 mg/dL, Optimal 130-159 mg/dL, Near optimal/above optimal 160-189 mg/dL, Borderline high 190-219 mg/dL, High >219 mg/dL, Very high Secondary prevention optimal non HDL Cholesterol levels are recommended to be <100 mg/dL Cholesterol.total/C holesterol in HDL [Mass ratio] 2.52 {ratio} NINF - 5.10 [facility] Fasting Time 12 hrs [facility] Triglyceride [Mass/Vol] 82 mg/dL NINF - 150 mg/dL [facility] Comment on above: <150 mg/dL, Normal 150-199 mg/dL, Borderline high 200-499 mg/dL, High >499 mg/dL, Very high No Panel Informationon 02-05 Interpretation and review of laboratory results Abnormal [facility] VL Aorta Iliac Duplexon 11-23 VL Aorta Iliac Duplex Patient Name: BAM WEBER Ultrasound ACCESSION EXAM DATE/TIME PROCEDURE ORDERING PROVIDER [id number] 12/12/2021 09:30 EDT VL Aorta Iliac Duplex JADE DUENAS CPT code 63878 Reason For Exam (VL Aorta Iliac Duplex) s/p iliac vein stents Report [facility] ----- Inferior Vena Cava Duplex Report Patient Gus, : 1980 Study 12/12/2021 Name: Bam Blanco (41yrs) Date: Patient [id number] Age: 41 Account: [id number] ID: Gender: F Loc: BP: Ordering Physician: Jade Duenas M.D. Supervisor Pipe Finishing: Nandini Gibson RVT Interpreting Physician: Jack Nagel MD ----- Location: [address] ----- Indications: Obstruction of iliac vein, aftercare following surgery of thr circulatory system. ----- Conclusions 1. The inferior vena cavaappears patent and demonstrates normal phasicity. 2. There is no evidence of acute deep vein thrombosis noted in the right iliac vein and the stent is patent. 3. The right common iliac vein, right external iliac vein, and right common femoral veinappears patent and demonstrates normal phasicity. 4. There is no evidence of acute deep vein thrombosis noted in the left iliac vein and the stent is patent. 5. The left common iliac vein, left external iliac vein, and left common femoral veinappears patent and demonstrates normal phasicity. ----- History: Risk factors: Nonsmoker. ----- Study data: Inferior vena cava duplex. Duplex scan, grayscale 2D Ultrasound Report imaging, color Doppler imaging, and spectral Doppler analysis. Location: Vascular laboratory. Procedure: A vascular evaluation was performed with the patient in the supine position. Images were obtained using a Payoffs vascular ultrasound machine. ----- Venous flow and imaging: + +- ------+ ------+ ----+ +Location +Overall+Properties +Comments + + +- ------+ ------+ ----+ +IVC +Patent +Normal phasicity; +Right Iliac stent + + + +spontaneous +appears Patent. + + + + +Left Iliac stent + + + + +appears Patent. + + +- ------+ ------+ ----+ +R common iliac - +Patent +Normal phasicity; + + +prox. + +spontaneous + + + +- ------+ ------+ ----+ +R common iliac - +Patent +Normal phasicity; + + +mid + +spontaneous + + + +- ------+ ------+ ----+ +R common iliac - +Patent +Normal phasicity; + + +distal + +spontaneous + + + +- ------+ ------+ ----+ +R external iliac - +Patent +Normal phasicity; + + +prox. + +spontaneous + + + +- ------+ ------+ ----+ +R external iliac - +Patent +Normal phasicity; + + +mid + +spontaneous + + + +- ------+ ------+ ----+ +R external iliac - +Patent +Normal phasicity; + + +distal + +spontaneous + + + +- ------+ ------+ ----+ +R CFV +Patent +Normal phasicity; + + + + +spontaneous; + + + + +compressible + + + +- ------+ ------+ ----+ +L common iliac - +Patent +Normal phasicity; + + +prox. + +spontaneous + + + +- ------+ ------+ ----+ +L common iliac - +Patent +Normal phasicity; + + +mid + +spontaneous + + + +- ------+ ------+ ----+ +L common iliac - +Patent +Normal phasicity; + + +distal + +spontaneous + + + +- ------+ ------+ ----+ +L external iliac - +Patent +Normal phasicity; + + +prox. + +spontaneous + + + +- ------+ ------+ ----+ +L external iliac - +Patent +Normal phasicity; + + +mid + +spontaneous + + + +- ------+ ------+ ----+ +L external iliac - +Patent +Normal phasicity; + + +distal + +spontaneous + + + +- ------+ ------+-------- (more content not included)... Normal [facility] US Duplex Aorta IVC Iliac Completeon 12-12-2021 [facility] ----- Inferior Vena Cava Duplex Report Patient Gus, : 1980 Study 12/12/2021 Name: Bam Blanco (41yrs) Date: Patient [id number] Age: 41 Account: [id number] ID: Gender: F Loc: BP: Ordering Physician: Jade Duenas M.D. Supervisor Pipe Finishing: Nandini Gibson RVT Interpreting Physician: Jack Nagel MD ----- Location: [address] ----- Indications: Obstruction of iliac vein, aftercare following surgery of thr circulatory system. ----- Conclusions 1. The inferior vena cavaappears patent and demonstrates normal phasicity. 2. There is no evidence of acute deep vein thrombosis noted in the right iliac vein and the stent is patent. 3. The right common iliac vein, right external iliac vein, and right common femoral veinappears patent and demonstrates normal phasicity. 4. There is no evidence of acute deep vein thrombosis noted in the left iliac vein and the stent is patent. 5. The left common iliac vein, left external iliac vein, and left common femoral veinappears patent and demonstrates normal phasicity. ----- History: Risk factors: Nonsmoker. ----- Study data: Inferior vena cava duplex. Duplex scan, grayscale 2D imaging, color Doppler imaging, and spectral Doppler analysis. Location: Vascular laboratory. Procedure: A vascular evaluation was performed with the patient in the supine position. Images were obtained using a [employer] vascular ultrasound machine. ----- Venous flow and imaging: + +- ------+ ------+ ----+ +Location +Overall+Properties +Comments + + +- ------+ ------+ ----+ +IVC +Patent +Normal phasicity; +Right Iliac stent + + + +spontaneous +appears Patent. + + + + +Left Iliac stent + + + + +appears Patent. + + +- ------+ ------+ ----+ +R common iliac - +Patent +Normal phasicity; + + +prox. + +spontaneous + + + +- ------+ ------+ ----+ +R common iliac - +Patent +Normal phasicity; + + +mid + +spontaneous + + + +- ------+ ------+ ----+ +R common iliac - +Patent +Normal phasicity; + + +distal + +spontaneous + + + +- ------+ ------+ ----+ +R external iliac - +Patent +Normal phasicity; + + +prox. + +spontaneous + + + +- ------+ ------+ ----+ +R external iliac - +Patent +Normal phasicity; + + +mid + +spontaneous + + + +- ------+ ------+ ----+ +R external iliac - +Patent +Normal phasicity; + + +distal + +spontaneous + + + +- ------+ ------+ ----+ +R CFV +Patent +Normal phasicity; + + + + +spontaneous; + + + + +compressible + + + +- ------+ ------+ ----+ +L common iliac - +Patent +Normal phasicity; + + +prox. + +spontaneous + + + +- ------+ ------+ ----+ +L common iliac - +Patent +Normal phasicity; + + +mid + +spontaneous + + + +- ------+ ------+ ----+ +L common iliac - +Patent +Normal phasicity; + + +distal + +spontaneous + + +------ (more content not included)... [facility] Jack Nagel MD - 12/12/2021 [facility] ----- Inferior Vena Cava Duplex Report Patient Gus, : 1980 Study 12/12/2021 Name: Bam Blanco (41yr) Date: Patient [id number] Age: 41 Account: [id number] ID: Gender: F Loc: BP: Ordering Physician: Jade Duenas M.D. Supervisor Pipe Finishing: Nandini Gibson RVT Interpreting Physician: Jack Nagel MD ----- Location: [address] ----- Indications: Obstruction of iliac vein, aftercare following surgery of thr circulatory system. ----- Conclusions 1. The inferior vena cavaappears patent and demonstrates normal phasicity. 2. There is no evidence of acute deep vein thrombosis noted in the right iliac vein and the stent is patent. 3. The right common iliac vein, right external iliac vein, and right common femoral veinappears patent and demonstrates normal phasicity. 4. There is no evidence of acute deep vein thrombosis noted in the left iliac vein and the stent is patent. 5. The left common iliac vein, left external iliac vein, and left common femoral veinappears patent and demonstrates normal phasicity. ----- History: Risk factors: Nonsmoker. ----- Study data: Inferior vena cava duplex. Duplex scan, grayscale 2D imaging, color Doppler imaging, and spectral Doppler analysis. Location: Vascular laboratory. Procedure: A vascular evaluation was performed with the patient in the supine position. Images were obtained using a [employer] vascular ultrasound machine. ----- Venous flow and imaging: + +- ------+ ------+ ----+ +Location +Overall+Properties +Comments + + +- ------+ ------+ ----+ +IVC +Patent +Normal phasicity; +Right Iliac stent + + + +spontaneous +appears Patent. + + + + +Left Iliac stent + + + + +appears Patent. + + +- ------+ ------+ ----+ +R common iliac - +Patent +Normal phasicity; + + +prox. + +spontaneous + + + +- ------+ ------+ ----+ +R common iliac - +Patent +Normal phasicity; + + +mid + +spontaneous + + + +- ------+ ------+ ----+ +R common iliac - +Patent +Normal phasicity; + + +distal + +spontaneous + + + +- ------+ ------+ ----+ +R external iliac - +Patent +Normal phasicity; + + +prox. + +spontaneous + + + +- ------+ ------+ ----+ +R external iliac - +Patent +Normal phasicity; + + +mid + +spontaneous + + + +- ------+ ------+ ----+ +R external iliac - +Patent +Normal phasicity; + + +distal + +spontaneous + + + +- ------+ ------+ ----+ +R CFV +Patent +Normal phasicity; + + + + +spontaneous; + + + + +compressible + + + +- ------+ ------+ ----+ +L common iliac - +Patent +Normal phasicity; + + +prox. + +spontaneous + + + +- ------+ ------+ ----+ +L common iliac - +Patent +Normal phasicity; + + +mid + +spontaneous + + + +- ------+ ------+ ----+ +L common iliac - +Patent +Normal phasicity; + + +distal + +spontaneous + + + +- ------+ ------+ ----+ +L external iliac - +Patent +Normal phasicity; + + +prox. + +spontaneous + + + +- ------+ ------+ ----+ +L external iliac - +Patent +Normal phasicity; + + +mid + +spontaneous + + + +- ------+ ------+ ----+ +L external iliac - +Patent +Normal phasicity; + + +distal + +spontaneous + + + +- ------+ ------+ ----+ +L CFV +Patent +Normal phasicity; + + + + +spontaneous; + + + + +compressible + + + +- ------+ ------+ ----+ +IVC +-------+Normal (more content not included)... [employer] Work Phone: Radiology Study observation (narrative) [employer] Work Phone: VL US Duplex Aorta IVC Iliac CompleteOrdered By: Jack Nagel on 12-12-2021 [employer] Work Phone: MG Breast Tomosynthesis Scr Blon 12-06-2021 MG Breast Tomosynthesis Scr Bl Patient Name: BAM WEBER Mammography ACCESSION EXAM DATE/TIME PROCEDURE ORDERING PROVIDER [id number] 12/06/2021 08:15 EDT MG Breast Tomosynthesis POLIFRONE, C W[place] BI Scr CPT code [id number] Reason For Exam (MG Breast Tomosynthesis BI Scr) screen Report TIME SINCE LAST MAMMOGRAM: Last mammogram was performed 1 year and 4 months ago. REASON FOR EXAM: screening, asymptomatic. PROCEDURE: MG BREAST TOMOSYNTHESIS BL SCR: DECEMBER 06, 2021 - 2D/3D Procedure 3D Bilateral CC and MLO view(s) were taken. 2D Bilateral CC and MLO view(s) were taken. Prior study comparison: August 03, 2020, bilateral MG breast tomosynthesis bl performed at [facility]. May 23, 2013, bilateral screening mammogram performed at [facility]. TISSUE DENSITY: BIRADS C - The breast tissue is heterogeneously dense, which could obscure underlying abnormalities. . RISK ALERT: The Cancer Risk Assessment scores below the recommendation of this report contain an outcome above the normal risk range. PATIENT CANCER HISTORY: Self Skin Cancer (Non-Melanoma) age 38 FAMILY CANCER HISTORY: Mother Breast Cancer age 51 Paternal Aunt Melanoma age 70 FINDINGS: No suspicious masses, architectural distortions or suspiciously clustered microcalcifications are identified. There is no evidence of skin thickening or nipple retraction. There are no significant changes when compared with prior studies. No mammographic evidence of malignancy. Markings on images: BB's = Nipples; skin lesions Open [place] = Palpable Line = Scar Mammography Report 2D digital mammography and tomosynthesis imaging were performed and reviewed with CAD. ASSESSMENT: Category 1 Negative RECOMMENDATION: Routine screening mammogram of both breasts in 1 year. . Report Dictated on Cancer Risk Assessment: This risk assessment is based on patient provided information collected in a risk survey taken at the time of this examination. Lifetime breast cancer risk: Tyrer-Cuzick v7 34.01% - If greater than or equal to 20%, consider annual mammogram and annual screening Breast MRI or follow up in high risk clinic. A score of Average Risk indicates a score of less than 20%. Is the patient at elevated risk based on the HBOC criteria? No (Hereditary Breast and Ovarian Cancer) - If yes, consider genetic counseling and testing with high risk follow up. Is the patient at elevated risk based on the Osuna Syndrome criteria? No - If yes, consider genetic counseling and testing with high risk follow up. Final Signed Date and Time: 12/06/2021 8:41 am Signed by: MD EDMONDS ANN C. Normal [facility] Shaji Digital Screen Helena padilla 12-06-2021 Patient Name: BAM WEBER Mammography ACCESSION EXAM DATE/TIME PROCEDURE ORDERING PROVIDER [id number] 12/06/2021 08:15 EDT MG Breast Tomosynthesis Ana Rosa FREEMAN BI Scr CPT code 05142 47662 Reason For Exam (MG Breast Tomosynthesis BI Scr) screen Report TIME SINCE LAST MAMMOGRAM: Last mammogram was performed 1 year and 4 months ago. REASON FOR EXAM: screening, asymptomatic. PROCEDURE: MG BREAST TOMOSYNTHESIS BL SCR: DECEMBER 06, 2021 - 2D/3D Procedure 3D Bilateral CC and MLO view(s) were taken. 2D Bilateral CC and MLO view(s) were taken. Prior study comparison: August 03, 2020, bilateral MG breast tomosynthesis bl performed at [facility]. May 23, 2013, bilateral screening mammogram performed at [facility]. TISSUE DENSITY: BIRADS C - The breast tissue is heterogeneously dense, which could obscure underlying abnormalities. . RISK ALERT: The Cancer Risk Assessment scores below the recommendation of this report contain an outcome above the normal risk range. PATIENT CANCER HISTORY: Self Skin Cancer (Non-Melanoma) age 38 FAMILY CANCER HISTORY: Mother Breast Cancer age 51 Paternal Aunt Melanoma age 70 FINDINGS: No suspicious masses, architectural distortions or suspiciously clustered microcalcifications are identified. There is no evidence of skin thickening or nipple retraction. There are no significant changes when compared with prior studies. No mammographic evidence of malignancy. Markings on images: BB's = Nipples; skin lesions Open [place] = Palpable Line = Scar Mammography Report 2D digital mammography and tomosynthesis imaging were performed and reviewed with CAD. ASSESSMENT: Category 1 Negative RECOMMENDATION: Routine screening mammogram of both breasts in 1 year. . Report Dictated on Cancer Risk Assessment: This risk assessment is based on patient provided information collected in a risk survey taken at the time of this examination. Lifetime breast cancer risk: Tyrer-Cuzick v7 34.01% - If greater than or equal to 20%, consider annual mammogram and annual screening Breast MRI or follow up in high risk clinic. A score of Average Risk indicates a score of less than 20%. Is the patient at elevated risk based on the HBOC criteria? No (Hereditary Breast and Ovarian Cancer) - If yes, consider genetic counseling and testing with high risk follow up. Is the patient at elevated risk based on the Osuna Syndrome criteria? No - If yes, consider genetic counseling and testing with high risk follow up. --- Final --- Signed Date and Time: 12/06/2021 8:41 am Signed by: MD EDMONDS ANN C. [facility] Daylin Edmonds MD - 12/06/2021 Patient Name: BAM WEBER Mammography ACCESSION EXAM DATE/TIME PROCEDURE ORDERING PROVIDER [id number] 12/06/2021 08:15 EDT MG Breast Tomosynthesis Ana Rosa FREEMAN BI Scr CPT code 98408 78156 Reason For Exam (MG Breast Tomosynthesis BI Scr) screen Report TIME SINCE LAST MAMMOGRAM: Last mammogram was performed 1 year and 4 months ago. REASON FOR EXAM: screening, asymptomatic. PROCEDURE: MG BREAST TOMOSYNTHESIS BL SCR: DECEMBER 06, 2021 - 2D/3D Procedure 3D Bilateral CC and MLO view(s) were taken. 2D Bilateral CC and MLO view(s) were taken. Prior study comparison: August 03, 2020, bilateral MG breast tomosynthesis bl performed at [facility]. May 23, 2013, bilateral screening mammogram performed at [facility]. TISSUE DENSITY: BIRADS C - The breast tissue is heterogeneously dense, which could obscure underlying abnormalities. . RISK ALERT: The Cancer Risk Assessment scores below the recommendation of this report contain an outcome above the normal risk range. PATIENT CANCER HISTORY: Self Skin Cancer (Non-Melanoma) age 38 FAMILY CANCER HISTORY: Mother Breast Cancer age 51 Paternal Aunt Melanoma age 70 FINDINGS: No suspicious masses, architectural distortions or suspiciously clustered microcalcifications are identified. There is no evidence of skin thickening or nipple retraction. There are no significant changes when compared with prior studies. No mammographic evidence of malignancy. Markings on images: BB's = Nipples; skin lesions Open [place] = Palpable Line = Scar Mammography Report 2D digital mammography and tomosynthesis imaging were performed and reviewed with CAD. ASSESSMENT: Category 1 Negative RECOMMENDATION: Routine screening mammogram of both breasts in 1 year. . Report Dictated on Cancer Risk Assessment: This risk assessment is based on patient provided information collected in a risk survey taken at the time of this examination. Lifetime breast cancer risk: Tyrer-Cuzick v7 34.01% - If greater than or equal to 20%, consider annual mammogram and annual screening Breast MRI or follow up in high risk clinic. A score of Average Risk indicates a score of less than 20%. Is the patient at elevated risk based on the HBOC criteria? No (Hereditary Breast and Ovarian Cancer) - If yes, consider genetic counseling and testing with high risk follow up. Is the patient at elevated risk based on the Osuna Syndrome criteria? No - If yes, consider genetic counseling and testing with high risk follow up. --- Final --- Signed Date and Time: 12/06/2021 8:41 am Signed by: MD EVELYN, DAYLIN Alonzo [facility] Work Phone: Radiology Study observation (narrative) [facility] Work Phone: [facility] Shaji Digital Screen Bila teralOrdered By: Daylin Edmonds on 12-06-2021 [facility] CT Maxillofacial w/o Contras ton 10-08-2021 CT Maxillofacial w/o Contrast [facility]: [id number] Computed Tomography ACCESSION EXAM DATE/TIME PROCEDURE ORDERING PROVIDER [id number] 10/08/2021 07:[address] Maxillofacial w/o MD LISSETTE, JOSE CRUZ Contrast CPT code 98230 Reason For Exam (CT Maxillofacial w/o Contrast) Facial Pain Report EXAMINATION: CT of the Facial Bones without Contrast. COMPARISON: None. REASON FOR STUDY: Facial pain; recent nasal injury. TECHNIQUE: Contiguous axial 1 mm and orthogonal 2 mm images were obtained. I, concurrently, rendered and reviewed 4D images on a 3-D diagnostic workstation to enhance visualization of osseous structures. FINDINGS: No fracture line or bone displacement is detected. Orbits are symmetric and within normal limits. Intraorbital contents appear normal. Temporomandibular joints are symmetric and within normal limits. There is mild mucosal thickening in the right maxillary sinus. Maxillary sinuses are otherwise pneumatized and clear. Maxillary ostia and infundibula are patent bilaterally. Uncinate processes appear intact. There is leftward deviation of the nasal septum with spurring at the apex. Middle and inferior nasal vestibules as well as a canals are patent bilaterally. CONCLUSIONS: 1. No evidence of acute bone injury. 2. Mild inflammatory changes in the right maxillary sinus. 3. Leftward nasal septal deviation with spurring at the apex. Computed Tomography Report Report Dictated on Final Dictating Physician: MD MOSES B NELSON Signed Date and Time: 10/10/2021 8:40 am Signed by: MD MOSES B NELSON Transcribed Date and Time: 10/10/2021 8:[address] [facility] VL Aorta Iliac Duplexon 03-24 VL Aorta Iliac Duplex [id number] Ul[facility]ound ACCESSION EXAM DATE/TIME PROCEDURE ORDERING PROVIDER [id number] 04/04/2021 08:08 EDT VL Aorta Iliac Duplex JADE DUENAS CPT code 69051 Reason For Exam (VL Aorta Iliac Duplex) IVC and Iliac V stents-follow up Report [facility] ----- Inferior Vena Cava Duplex Report Patient Gus : 1980 Study 04/04/2021 Name: Bam Blanco (41yrs) Date: Patient [id number] Age: 41 Account: [id number] ID: Gender: F Loc: BP: Ordering Physician: Jade Duenas M.D. Supervisor Pipe Finishing: Rhiannon Pal RDMS, RVT Interpreting Physician: Manuel Goodman MD ----- Location: [place] [address] [address] ----- Indications: CIV stents. ----- Conclusions IVC and iliac veins are patent ----- History: Risk factors: No risk factors for vascular disease. ----- Study data: Inferior vena cava duplex. Duplex scan, grayscale 2D imaging, color Doppler imaging, and spectral Doppler analysis. Location: Vascular laboratory. Procedure: A vascular evaluation was performed with the patient in the left lateral decubitus position and in the supine position. Images were obtained using a VANDOLAY E9 vascular ultrasound machine. ----- Venous flow and imaging: Ultrasound Report + --+ + +Location +Properties + + --+ + +IVC +Normal phasicity; spontaneous+ + --+ + +R common iliac - prox. +Normal phasicity; spontaneous+ + --+ + +R common iliac - mid +Normal phasicity; spontaneous+ + --+ + +R common iliac - distal+Normal phasicity; spontaneous+ + --+ + +R external iliac - mid +Normal phasicity; spontaneous+ + --+ + +L common iliac - prox. +Normal phasicity; spontaneous+ + --+ + +L common iliac - mid +Normal phasicity; spontaneous+ + --+ + +L common iliac - distal+Normal phasicity; spontaneous+ + --+ + +L external iliac - mid +Normal phasicity; spontaneous+ + --+ + Prepared and electronically signed by Manuel Goodman MD 04/04/2021 11:53 Final Dictated: 04/04/2021 11:53 am Dictating Physician: MANUEL GOODMAN Signed Date and Time: 04/04/2021 11:53 am Signed by: MANUEL GOODMAN Cardiovascular ACCESSION EXAM DATE/TIME PROCEDURE [id number] 04/04/2021 08:08 EDT VL Aorta Iliac Duplex CPT code 14402 Reason For Exam (VL Aorta Iliac Duplex) IVC and Iliac V stents-follow up Report [facility] ----- Inferior Vena Cava Duplex Report Patient GusDOB: 1980 Study 04/04/2021 Name: Bam Anaya41yrs) Date: Patient [id number] Age: 41 Account: [id number] ID: Gender: F Loc: BP: Ordering Physician: Jade Duenas M.D. Supervisor Pipe Finishing: Rhiannon Pal RDMS, RVT Interpreting Physician: Manuel Goodman MD Cardiovascular Report ----- Location: [address] ----- Indications: CIV stents. ----- Conclusions IVC and iliac veins are patent ----- History: Risk factors: No risk factors for vascular disease. ----- Study data: Inferior vena cava duplex. Duplex scan, grayscale 2D imaging, color Doppler imaging, and spectral Doppler analysis. Location: Vascular laboratory. Procedure: A vascular evaluation was performed with the patient in the left lateral decubitus position and in the supine position. Images were obtained using a VANDOLAY E9 vascular ultrasound machine. ----- Venous flow and imaging: + --+ (more content not included)... Normal [employer] [facility] US Duplex Aorta IVC Iliac CompleteOrdered By: Jade Duenas on 04-04-2021 [facility] ----- Inferior Vena Cava Duplex Report Patient Gus, : 1980 Study 04/04/2021 Name: Bam Blanco (41yrs) Date: Patient [id number] Age: 41 Account: [id number] ID: Gender: F Loc: BP: Ordering Physician: Jade Duenas M.D. Supervisor Pipe Finishing: Rhiannon Pal RDMS, RVT Interpreting Physician: Manuel Goodman MD ----- Location: [address] ----- Indications: CIV stents. ----- Conclusions IVC and iliac veins are patent ----- History: Risk factors: No risk factors for vascular disease. ----- Study data: Inferior vena cava duplex. Duplex scan, grayscale 2D imaging, color Doppler imaging, and spectral Doppler analysis. Location: Vascular laboratory. Procedure: A vascular evaluation was performed with the patient in the left lateral decubitus position and in the supine position. Images were obtained using a VANDOLAY E9 vascular ultrasound machine. ----- Venous flow and imaging: + --+ + +Location +Properties + + --+ + +IVC +Normal phasicity; spontaneous+ + --+ + +R common iliac - prox. +Normal phasicity; spontaneous+ + --+ + +R common iliac - mid +Normal phasicity; spontaneous+ + --+ + +R common iliac - distal+Normal phasicity; spontaneous+ + --+ + +R external iliac - mid +Normal phasicity; spontaneous+ + --+ + +L common iliac - prox. +Normal phasicity; spontaneous+ + --+ + +L common iliac - mid +Normal phasicity; spontaneous+ + --+ + +L common iliac - distal+Normal phasicity; spontaneous+ + --+ + +L external iliac - mid +Normal phasicity; spontaneous+ + --+ + Prepared and electronically signed by Manuel Goodman MD 04/04/2021 11:53 [employer] Work Phone: Peter, [employer] Incoming Cardiology Results From Barbie/Patti - 04/04/2021 11:53 AM EDT [facility] ----- Inferior Vena Cava Duplex Report Patient Gus, : 1980 Study 04/04/2021 Name: Bam Blanco (41yrs) Date: Patient [id number] Age: 41 Account: [id number] ID: Gender: F Loc: BP: Ordering Physician: Jade Duenas M.D. Supervisor Pipe Finishing: Rhiannon Pal RDMS, RVT Interpreting Physician: Manuel Goodman MD ----- Location: [address] ----- Indications: CIV stents. ----- Conclusions IVC and iliac veins are patent ----- History: Risk factors: No risk factors for vascular disease. ----- Study data: Inferior vena cava duplex. Duplex scan, grayscale 2D imaging, color Doppler imaging, and spectral Doppler analysis. Location: Vascular laboratory. Procedure: A vascular evaluation was performed with the patient in the left lateral decubitus position and in the supine position. Images were obtained using a VANDOLAY E9 vascular ultrasound machine. ----- Venous flow and imaging: + --+ + +Location +Properties + + --+ + +IVC +Normal phasicity; spontaneous+ + --+ + +R common iliac - prox. +Normal phasicity; spontaneous+ + --+ + +R common iliac - mid +Normal phasicity; spontaneous+ + --+ + +R common iliac - distal+Normal phasicity; spontaneous+ + --+ + +R external iliac - mid +Normal phasicity; spontaneous+ + --+ + +L common iliac - prox. +Normal phasicity; spontaneous+ + --+ + +L common iliac - mid +Normal phasicity; spontaneous+ + --+ + +L common iliac - distal+Normal phasicity; spontaneous+ + --+ + +L external iliac - mid +Normal phasicity; spontaneous+ + --+ + Prepared and electronically signed by Manuel Goodman MD 04/04/2021 11:53 [employer] Work Phone: [employer] Phone: , urineon 0 Beta HCG ( test) Ql (U) Negative Negative NA [employer] [place], [place] Comment on above: is the mos t common reason for HCG in urine, although choriocarcinoma, hydatidiform mole, and certain nontropho- blastic malignancies also result in detectable urinary HCG levels. Sensitivity = 20mIU/mL. Test Performed by [employer] [facility], [address] [place] [id number] [place], [place] VL DUP LOWER EXTREMITY VENOU S LEFTon 08-16-2020 [facility] ----- Left Lower Extremity Venous Duplex Report Patient Gus : 1980 Study 08/16/2020 Name: Bam Blanco (40yr) Date: Patient [id number] Age: 40 Account: [id number] ID: Gender: F Loc: BP: Ordering Physician: Jade Duenas Supervisor Pipe Finishing: Tran Alicea RVT Interpreting Physician: Jade Duenas ----- Location: [address] ----- Indications: Obstruction of iliac vein. ----- Preliminary result was reported to Ivan HSIEH , by Tran Alicea Good , on 08/16/2020 , at 04:36 PM. Correct read-back was verified. ----- Conclusions 1. There is no evidence of acute deep or superficial venous thrombosis noted in the left lower extremity. 2. The right common femoral vein fully compresses and demonstrates normal venous flow. ----- History: Risk factors: IVC venogram performed 08/13/20, patient reporting leg pain and worsening varicosities No risk factors for vascular disease. ----- Study data: Left lower extremity venous duplex evaluation. Grayscale 2D imaging, color Doppler imaging, and spectral Doppler analysis. Location: Vascular laboratory. Procedure: A vascular evaluation was performed with the patient in the supine position. Images were obtained using a VANDOLAY E9 vascular ultrasound machine. ----- Venous flow and imaging: + ----+-------+--------- ----+ +Location +Overall+Properties + + ----+-------+--------- ----+ +R CFV +Patent +Normal phasicity; spontaneous; + + + +normal augmentation; compressible + + ----+-------+--------- ----+ +L common iliac +Patent +Normal phasicity; spontaneous; + + + +normal augmentation + + ----+-------+--------- ----+ +L external iliac +Patent +Normal phasicity; spontaneous; + + + +normal augmentation + + ----+-------+--------- ----+ +L CFV +Patent +Normal phasicity; spontaneous; + + + +normal augmentation; compressible + + ----+-------+--------- ----+ +L FV - prox. +Patent +Compressible + + ----+-------+--------- ----+ +L FV - mid +Patent +Normal phasicity; spontaneous; + + + +normal augmentation; compressible + + ----+-------+--------- ----+ +L FV - distal +Patent +Compressible + + ----+-------+--------- ----+ +L saphenofemoral junction+Patent +Compressible + + ----+-------+--------- ----+ +L GSV +Patent +Compressible + + ----+-------+--------- ----+ +L profunda femoral +Patent +Normal phasicity; spontaneous; + + + +normal augmentation + + ----+-------+--------- ----+ +L popliteal +Patent +Normal phasicity; spontaneous; + + + +normal augmentation; compressible + + ----+-------+--------- ----+ +L peroneal +Patent +Compressible + + ----+-------+--------- ----+ +L PTV +Patent +Compressible + + ----+-------+--------- ----+ +L soleal +Patent +Compressible + + ----+-------+--------- ----+ +L gastrocnemius +Patent +Compressible + + ----+-------+--------- ----+ Prepared and electronically signed by Jade Duenas 08/16/2020 17:54 [facility]- [place], [place] Peter, [facility] Cardiology Results From Merge/[employer] - 08/16/2020 5:54 PM EST [facility] ----- Left Lower Extremity Venous Duplex Report Patient Gus, : 1980 Study 08/16/2020 Name: Bam Blanco (40yrs) Date: Patient [id number] Age: 40 Account: [id number] ID: Gender: F Loc: BP: Ordering Physician: Jade Duenas Supervisor Pipe Finishing: Tran Alicea RVT Interpreting Physician: Jade Duenas ----- Location: [place] [address] ----- Indications: Obstruction of iliac vein. ----- Preliminary result was reported to Ivan HSIEH , by Tran Alicea RVT , on 08/16/2020 , at 04:36 PM. Correct read-back was verified. ----- Conclusions 1. There is no evidence of acute deep or superficial venous thrombosis noted in the left lower extremity. 2. The right common femoral vein fully compresses and demonstrates normal venous flow. ----- History: Risk factors: IVC venogram performed 08/13/20, patient reporting leg pain and worsening varicosities No risk factors for vascular disease. ----- Study data: Left lower extremity venous duplex evaluation. Grayscale 2D imaging, color Doppler imaging, and spectral Doppler analysis. Location: Vascular laboratory. Procedure: A vascular evaluation was performed with the patient in the supine position. Images were obtained using a VANDOLAY E9 vascular ultrasound machine. ----- Venous flow and imaging: + ----+-------+--------- ----+ +Location +Overall+Properties + + ----+-------+--------- ----+ +R CFV +Patent +Normal phasicity; spontaneous; + + + +normal augmentation; compressible + + ----+-------+--------- ----+ +L common iliac +Patent +Normal phasicity; spontaneous; + + + +normal augmentation + + ----+-------+--------- ----+ +L external iliac +Patent +Normal phasicity; spontaneous; + + + +normal augmentation + + ----+-------+--------- ----+ +L CFV +Patent +Normal phasicity; spontaneous; + + + +normal augmentation; compressible + + ----+-------+--------- ----+ +L FV - prox. +Patent +Compressible + + ----+-------+--------- ----+ +L FV - mid +Patent +Normal phasicity; spontaneous; + + + +normal augmentation; compressible + + ----+-------+--------- ----+ +L FV - distal +Patent +Compressible + + ----+-------+--------- ----+ +L saphenofemoral junction+Patent +Compressible + + ----+-------+--------- ----+ +L GSV +Patent +Compressible + + ----+-------+--------- ----+ +L profunda femoral +Patent +Normal phasicity; spontaneous; + + + +normal augmentation + + ----+-------+--------- ----+ +L popliteal +Patent +Normal phasicity; spontaneous; + + + +normal augmentation; compressible + + ----+-------+--------- ----+ +L peroneal +Patent +Compressible + + ----+-------+--------- ----+ +L PTV +Patent +Compressible + + ----+-------+--------- ----+ +L soleal +Patent +Compressible + + ----+-------+--------- ----+ +L gastrocnemius +Patent +Compressible + + ----+-------+--------- ----+ Prepared and electronically signed by Jade Duenas 08/16/2020 17:54 [facility] [place] Basic Metabolic Panelon 11-2 Anion gap [Moles/Vol] 7 mmol/L [place], [place] Calcium [Mass/Vol] 9.0 mg/dL 8.4 - 10.4 mg/dL [place], [place] Chloride [Moles/Vol] 106 mmol/L 98 - 107 mmol/L [place], [place] CO2 [Moles/Vol] 28 mmol/L 22 - 30 mmol/L [place] Creatinine [Mass/Vol] 0.69 mg/dL 0.52 - 1.25 mg/dL [place], [place] EGFR IF NonAfrican Mauritian >90.0 >60 mL/min [place], [place] Comment on above: KDIGO guidelines pro vide the following GFR categories: Stage GFR(ml/min/1.73 m2) Terms G1 >=90 Normal or high G2 60-89 Mildly decreased* G3a 45-59 Mildly to moderately decreased G3b 30-44 Moderately to severely decreased G4 15-29 Severely decreased G5 <15 Kidney failure *Relative to young adult level. In the absence of evidence of kidney damage, neither GFR category G1 nor G2 fulfill the criteria for CKD. The CKD-EPI equation is validated in individuals 18 years of age and older. Currently the best equation for estimating glomerular filtration rate (GFR) from serum creatinine in children is the Bedside Alvarez equation. It is less accurate in patients with extremes of muscle mass, restriction of dietary protein, ingestion of creatine, extra-renal metabolism of creatinine, or treatment with medications that affect renal tubular creatinine secretion. GFR/1.73 sq M predicted among blacks MDRD (S/P/Bld) [Vol rate/Area] mL/min/{1.73_m2} >60 mL/min [place], [place] Glucose [Mass/Vol] 88 mg/dL 70 - 100 mg/dL [place], [place] Potassium [Moles/Vol] 3.7 mmol/L 3.5 - 5.1 mmol/L [place], [place] Sodium [Moles/Vol] 140 mmol/L 135 - 145 mmol/L [place], [place] Urea nitrogen [Mass/Vol] 8 mg/dL 7 - 20 mg/dL [place], [place] Test Performed by [facility] [employer] [facility], [address] [place] [id number] [place], [place] , urineon 0 Beta HCG ( test) Ql (U) Negative Negative NA [facility], [place] Comment on above: is the mos t common reason for HCG in urine, although choriocarcinoma, hydatidiform mole, and certain nontropho- blastic malignancies also result in detectable urinary HCG levels. Sensitivity = 20mIU/mL. Test Performed by [employer] [facility], [address] [place] [id number] [facility] SHAJI DIGITAL DIAGNOSTIC BILATERALon 08-03-2020 Patient Name: BAM WEBER ---Mammography--- Exam Date/Time 08/03/2020 08:16:38 EST Exam MG Breast Tomosynthesis BI Ordering Physician Ana Rosa FREEMAN Accession Number [id number] CPT4 Codes 06388 (MG Breast Tomosynthesis BI), 35354 (MG MAMMO 2D DIAG BILAT) Reason For Exam Mastalgia Report TIME SINCE LAST MAMMOGRAM: Last mammogram was performed 7 years and 2 months ago. REASON FOR EXAM: clinical finding. PROCEDURE: MG BREAST TOMOSYNTHESIS BL: AUGUST 03, 2020 - 2D/3D Procedure 3D Bilateral CC and MLO view(s) were taken. 2D Bilateral CC and MLO view(s) were taken. Prior study comparison: May 23, 2013, bilateral screening mammogram performed at [facility]. TISSUE DENSITY: BIRADS C - The breast tissue is heterogeneously dense, which could obscure underlying abnormalities. . FINDINGS: No malignant appearing masses, grouped calcifications or areas of architectural distortion are identified. No significant change is noted compared to the prior exam. Targeted ultrasound of the left breast was performed directed to the area of the patient's palpable concern. At the 5:00 subareolar location there is intraductal fluid noted. No mass is identified. Given the patient's recent this is probably residual. Markings on images: BB's = Nipples; skin lesions [place] = Palpable Line = Scar US BREAST LIMITED LEFT: AUGUST 03, 2020 - 2D digital mammography and tomosynthesis imaging were performed and reviewed with CAD. ASSESSMENT: Category 2 Benign (Overall) RECOMMENDATION: Routine screening mammogram of both breasts in 1 year. . Report Dictated on --- Final --- Signed Date and Time: 08/03/2020 8:41 am Signed by: MD JUAN M, [facility] Results From [facility] - 08/03/2020 9:10 AM EST Patient Name: BAM WEBER ---Mammography--- Exam Date/Time 08/03/2020 08:16:38 EST Exam MG Breast Tomosynthesis BI Ordering Physician Ana Rosa FREEMAN Accession Number [id number] CPT4 Codes 86742 (MG Breast Tomosynthesis BI), 82786 (MG MAMMO 2D DIAG BILAT) Reason For Exam Mastalgia Report TIME SINCE LAST MAMMOGRAM: Last mammogram was performed 7 years and 2 months ago. REASON FOR EXAM: clinical finding. PROCEDURE: MG BREAST TOMOSYNTHESIS BL: AUGUST 03, 2020 - 2D/3D Procedure 3D Bilateral CC and MLO view(s) were taken. 2D Bilateral CC and MLO view(s) were taken. Prior study comparison: May 23, 2013, bilateral screening mammogram performed at [facility]. TISSUE DENSITY: BIRADS C - The breast tissue is heterogeneously dense, which could obscure underlying abnormalities. . FINDINGS: No malignant appearing masses, grouped calcifications or areas of architectural distortion are identified. No significant change is noted compared to the prior exam. Targeted ultrasound of the left breast was performed directed to the area of the patient's palpable concern. At the 5:00 subareolar location there is intraductal fluid noted. No mass is identified. Given the patient's recent this is probably residual. Markings on images: BB's = Nipples; skin lesions [place] = Palpable Line = Scar US BREAST LIMITED LEFT: AUGUST 03, 2020 - 2D digital mammography and tomosynthesis imaging were performed and reviewed with CAD. ASSESSMENT: Category 2 Benign (Overall) RECOMMENDATION: Routine screening mammogram of both breasts in 1 year. . Report Dictated on --- Final --- Signed Date and Time: 08/03/2020 8:41 am Signed by: MD JUAN M, [place] US BREAST LIMITED LEFTon Patient Name: BAM WEBER ---Ultrasound--- Exam Date/Time 08/03/2020 08:46:29 EST Exam US Breast Limited Left Ordering Physician Ana Rosa FREEMAN Accession Number [id number] CPT4 Codes 38832 () Reason For Exam lump Report TIME SINCE LAST MAMMOGRAM: Last mammogram was performed 7 years and 2 months ago. REASON FOR EXAM: clinical finding. PROCEDURE: MG BREAST TOMOSYNTHESIS BL: AUGUST 03, 2020 - 2D/3D Procedure 3D Bilateral CC and MLO view(s) were taken. 2D Bilateral CC and MLO view(s) were taken. Prior study comparison: May 23, 2013, bilateral screening mammogram performed at [facility]. TISSUE DENSITY: BIRADS C - The breast tissue is heterogeneously dense, which could obscure underlying abnormalities. . FINDINGS: No malignant appearing masses, grouped calcifications or areas of architectural distortion are identified. No significant change is noted compared to the prior exam. Targeted ultrasound of the left breast was performed directed to the area of the patient's palpable concern. At the 5:00 subareolar location there is intraductal fluid noted. No mass is identified. Given the patient's recent this is probably residual. Markings on images: BB's = Nipples; skin lesions [place] = Palpable Line = Scar US BREAST LIMITED LEFT: AUGUST 03, 2020 - 2D digital mammography and tomosynthesis imaging were performed and reviewed with CAD. ASSESSMENT: Category 2 Benign (Overall) RECOMMENDATION: Routine screening mammogram of both breasts in 1 year. . Report Dictated on --- Final --- Signed Date and Time: 08/03/2020 8:41 am Signed by: MD JUAN M, [place], [place] [facility] Incoming Radiology Results From [facility] - 08/03/2020 9:10 AM EST Patient Name: BAM WEBER ---Ultrasound--- Exam Date/Time 08/03/2020 08:46:29 EST Exam US Breast Limited Left Ordering Physician Ana Rosa FREEMAN Accession Number [id number] CPT4 Codes 35589 () Reason For Exam lump Report TIME SINCE LAST MAMMOGRAM: Last mammogram was performed 7 years and 2 months ago. REASON FOR EXAM: clinical finding. PROCEDURE: MG BREAST TOMOSYNTHESIS BL: AUGUST 03, 2020 - 2D/3D Procedure 3D Bilateral CC and MLO view(s) were taken. 2D Bilateral CC and MLO view(s) were taken. Prior study comparison: May 23, 2013, bilateral screening mammogram performed at [facility]. TISSUE DENSITY: BIRADS C - The breast tissue is heterogeneously dense, which could obscure underlying abnormalities. . FINDINGS: No malignant appearing masses, grouped calcifications or areas of architectural distortion are identified. No significant change is noted compared to the prior exam. Targeted ultrasound of the left breast was performed directed to the area of the patient's palpable concern. At the 5:00 subareolar location there is intraductal fluid noted. No mass is identified. Given the patient's recent this is probably residual. Markings on images: BB's = Nipples; skin lesions [place] = Palpable Line = Scar US BREAST LIMITED LEFT: AUGUST 03, 2020 - 2D digital mammography and tomosynthesis imaging were performed and reviewed with CAD. ASSESSMENT: Category 2 Benign (Overall) RECOMMENDATION: Routine screening mammogram of both breasts in 1 year. . Report Dictated on --- Final --- Signed Date and Time: 08/03/2020 8:41 am Signed by: MD JUAN M, VICTOR MANUEL [facility], [place] Hemoglobin and HematocritSarah 08-02-2020 Hematocrit (Bld) [Volume fraction] 42.4 % 35 - 47 % [place], [place] Hemoglobin (Bld) [Mass/Vol] 14.2 g/dL 11.7 - 16 g/dL [facility], [place] Test Performed by [employer] [facility], [address] [place] [id number] [facility], [place] VL VENOUS REFLUX US LOWER EX T BILATERALon 06-17-2020 [facility] ----- Bilateral Lower Extremity Venous Insufficiency Duplex Report Ordering Physician: Jade Duenas Supervisor Pipe Finishing: Renuka Deutsch RDMS, RVT Interpreting Physician: Jade Duenas ----- Location: [address] ----- Indications: Varicose veins. ----- Conclusions 1. There is no evidence of acute deep or superficial venous thrombosis noted in the right lower extremity. 2. There is no evidence of acute deep or superficial venous thrombosis noted in the left lower extremity. 3. Reflux noted in the right great saphenous vein and right small saphenous vein. ----- History: Risk factors: No risk factors for vascular disease. ----- Study data: Bilateral lower extremity venous insufficiency exam. Grayscale 2D imaging, color Doppler imaging, and spectral Doppler analysis. Location: Vascular laboratory. Procedure: Images were obtained using a VANDOLAY E9 vascular ultrasound machine. ----- Venous flow and imaging: + ----+-------+--------- ----+ +Location +Overall+Properties + + ----+-------+--------- ----+ +R CFV +Patent +Normal phasicity; spontaneous; + + + +normal augmentation; compressible + + ----+-------+--------- ----+ +R saphenofemoral junction+Patent +Compressible + + ----+-------+--------- ----+ +R profunda femoral +Patent +Normal phasicity; spontaneous; + + + +normal augmentation + + ----+-------+--------- ----+ +R FV - prox. +Patent +Compressible + + ----+-------+--------- ----+ +R FV - mid +Patent +Normal phasicity; spontaneous; + + + +normal augmentation; compressible + + ----+-------+--------- ----+ +R FV - distal +Patent +Compressible + + ----+-------+--------- ----+ +R popliteal +Patent +Normal phasicity; spontaneous; + + + +normal augmentation; compressible + + ----+-------+--------- ----+ +R gastrocnemius +Patent +Compressible + + ----+-------+--------- ----+ +R PTV +Patent +Compressible + + ----+-------+--------- ----+ +R peroneal +Patent +Compressible + + ----+-------+--------- ----+ +R soleal +Patent +Compressible + + ----+-------+--------- ----+ +R GSV +Patent +Compressible + + ----+-------+--------- ----+ +L CFV +Patent +Normal phasicity; spontaneous; + + + +normal augmentation; compressible + + ----+-------+--------- ----+ +L saphenofemoral junction+Patent +Compressible + + ----+-------+--------- ----+ +L profunda femoral +Patent +Normal phasicity; spontaneous; + + + +normal augmentation + + ----+-------+--------- ----+ +L FV - prox. +Patent +Compressible + + ----+-------+--------- ----+ +L FV - mid +Patent +Normal phasicity; spontaneous; + + + +normal augmentation; compressible + + ----+-------+--------- ----+ +L FV - distal +Patent +Compressible + + ----+-------+--------- ----+ +L popliteal +Patent +Normal phasicity; spontaneous; + + + +normal augmentation; compressible + + ----+-------+--------- ----+ +L gastrocnemius +Patent +Compressible + + ----+-------+--------- ----+ +L PTV +Patent +Compressible + + ----+-------+--------- ----+ +L peroneal +Patent +Compressible + + ----+-------+--------- ----+ +L soleal +Patent +Compressible + + ----+-------+--------- ----+ +L GSV +Patent +Compressible + + ----+-------+--------- ----+ Vein mapping: + + +-------- --+-------+ ----+ +Location +Diameter AP*+Reflux +Reflux +Comments + + + +time + + + + + +-------- --+-------+ ----+ +R CFV + +-------- --+Absent + + + + +-------- --+-------+ ----+ +R FV + +-------- --+Absent + + + + +-------- --+-------+ ----+ +R popliteal + +-------- --+Absent + + + + +-------- --+-------+ ----+ +R saph-femoral +6.10 mm + +Absent + + +junction + + + + + + + +-------- --+-------+ ----+ +R GSV - prox. (thigh)+4.20 mm + +Absent + + + + +-------- --+-------+ ----+ +R GSV - mid (thigh) +4.00 mm + +Absent + + + + +-------- --+-------+ ----+ +R GSV - distal +3.80 mm + +Absent + + +(thigh) + + + + + + + +-------- --+-------+ ----+ +R GSV (knee) +3.60 mm + +Absent + + + + +-------- --+-------+ ----+ +R GSV - prox. (calf) +1.70 mm + +Absent + + + + +-------- --+-------+ ----+ +R GSV - mid (calf) + +0.78 sec +Present+ --+ + + +-------- --+-------+ ----+ +R GSV - distal (calf)+ +-- --------+Absent + + + + +-------- --+-------+ ----+ +R ASV - prox. (thigh)+2.20 mm + +Absent + + + + +-------- --+-------+ ----+ +R ASV - mid (thigh) + +-------- --+-------+Could not + + + + + +follow. + + + +-------- --+-------+ ----+ +R SSV - prox. (calf) +3.00 mm + +Absent + + + + +-------- --+-------+ ----+ +R SSV - mid (calf) + +0.51 sec +Present+ --+ + + +-------- --+-------+ ----+ +L CFV + +-------- --+Absent + + + + +-------- --+-------+ ----+ +L FV + +-------- --+Absent + + + + +-------- --+-------+ ----+ +L popliteal + +-------- --+Absent + + + + +-------- --+-------+ ----+ +L saph-femoral +5.80 mm + +Absent + + +junction + + + + + + + +-------- --+-------+ ----+ +L GSV - prox. (thigh)+4.30 mm + +Absent + + + + +-------- --+-------+ ----+ +L GSV - mid (thigh) +3.10 mm + +Absent + + + + +-------- --+-------+ ----+ +L GSV - distal +3.10 mm + +Absent + + +(thigh) + + + + + + + +-------- --+-------+ ----+ +L GSV (knee) +2.20 mm + +Absent + + + + +-------- --+-------+ ----+ +L GSV - prox. (calf) +1.50 mm + +Absent + + + + +-------- --+-------+ ----+ +L GSV - mid (calf) + +-------- --+-------+Could not + + + + + +follow. + + + +-------- --+-------+ ----+ +L ASV - prox. (thigh)+3.10 mm + +Absent + + + + +-------- --+-------+ ----+ +L SSV - prox. (calf) +2.20 mm + +Absent + + + + +-------- --+-------+ ----+ +L SSV - mid (calf) + +-------- --+-------+Could not + + + + + +follow. + + + +-------- --+-------+ ----+ *Length measurements, e.g. diameters, are expressed in mm Prepared and electronically signed by Jade Duenas 06/17/2020 11:41 [facility]- [place], [place] Peter, [facility] Incoming Cardiology Results From [facility] - 06/17/2020 11:41 AM EDT [facility] ----- Bilateral Lower Extremity Venous Insufficiency Duplex Report Ordering Physician: Jade Duenas Supervisor Pipe Finishing: Renuka Deutsch RDMS, RVT Interpreting Physician: Jade Duenas ----- Location: [address] ----- Indications: Varicose veins. ----- Conclusions 1. There is no evidence of acute deep or superficial venous thrombosis noted in the right lower extremity. 2. There is no evidence of acute deep or superficial venous thrombosis noted in the left lower extremity. 3. Reflux noted in the right great saphenous vein and right small saphenous vein. ----- History: Risk factors: No risk factors for vascular disease. ----- Study data: Bilateral lower extremity venous insufficiency exam. Grayscale 2D imaging, color Doppler imaging, and spectral Doppler analysis. Location: Vascular laboratory. Procedure: Images were obtained using a VANDOLAY E9 vascular ultrasound machine. ----- Venous flow and imaging: + ----+-------+--------- ----+ +Location +Overall+Properties + + ----+-------+--------- ----+ +R CFV +Patent +Normal phasicity; spontaneous; + + + +normal augmentation; compressible + + ----+-------+--------- ----+ +R saphenofemoral junction+Patent +Compressible + + ----+-------+--------- ----+ +R profunda femoral +Patent +Normal phasicity; spontaneous; + + + +normal augmentation + + ----+-------+--------- ----+ +R FV - prox. +Patent +Compressible + + ----+-------+--------- ----+ +R FV - mid +Patent +Normal phasicity; spontaneous; + + + +normal augmentation; compressible + + ----+-------+--------- ----+ +R FV - distal +Patent +Compressible + + ----+-------+--------- ----+ +R popliteal +Patent +Normal phasicity; spontaneous; + + + +normal augmentation; compressible + + ----+-------+--------- ----+ +R gastrocnemius +Patent +Compressible + + ----+-------+--------- ----+ +R PTV +Patent +Compressible + + ----+-------+--------- ----+ +R peroneal +Patent +Compressible + + ----+-------+--------- ----+ +R soleal +Patent +Compressible + + ----+-------+--------- ----+ +R GSV +Patent +Compressible + + ----+-------+--------- ----+ +L CFV +Patent +Normal phasicity; spontaneous; + + + +normal augmentation; compressible + + ----+-------+--------- ----+ +L saphenofemoral junction+Patent +Compressible + + ----+-------+--------- ----+ +L profunda femoral +Patent +Normal phasicity; spontaneous; + + + +normal augmentation + + ----+-------+--------- ----+ +L FV - prox. +Patent +Compressible + + ----+-------+--------- ----+ +L FV - mid +Patent +Normal phasicity; spontaneous; + + + +normal augmentation; compressible + + ----+-------+--------- ----+ +L FV - distal +Patent +Compressible + + ----+-------+--------- ----+ +L popliteal +Patent +Normal phasicity; spontaneous; + + + +normal augmentation; compressible + + ----+-------+--------- ----+ +L gastrocnemius +Patent +Compressible + + ----+-------+--------- ----+ +L PTV +Patent +Compressible + + ----+-------+--------- ----+ +L peroneal +Patent +Compressible + + ----+-------+--------- ----+ +L soleal +Patent +Compressible + + ----+-------+--------- ----+ +L GSV +Patent +Compressible + + ----+-------+--------- ----+ Vein mapping: + + +-------- --+-------+ ----+ +Location +Diameter AP*+Reflux +Reflux +Comments + + + +time + + + + + +-------- --+-------+ ----+ +R CFV + +-------- --+Absent + + + + +-------- --+-------+ ----+ +R FV + +-------- --+Absent + + + + +-------- --+-------+ ----+ +R popliteal + +-------- --+Absent + + + + +-------- --+-------+ ----+ +R saph-femoral +6.10 mm + +Absent + + +junction + + + + + + + +-------- --+-------+ ----+ +R GSV - prox. (thigh)+4.20 mm + +Absent + + + + +-------- --+-------+ ----+ +R GSV - mid (thigh) +4.00 mm + +Absent + + + + +-------- --+-------+ ----+ +R GSV - distal +3.80 mm + +Absent + + +(thigh) + + + + + + + +-------- --+-------+ ----+ +R GSV (knee) +3.60 mm + +Absent + + + + +-------- --+-------+ ----+ +R GSV - prox. (calf) +1.70 mm + +Absent + + + + +-------- --+-------+ ----+ +R GSV - mid (calf) + +0.78 sec +Present+ --+ + + +-------- --+-------+ ----+ +R GSV - distal (calf)+ +-- --------+Absent + + + + +-------- --+-------+ ----+ +R ASV - prox. (thigh)+2.20 mm + +Absent + + + + +-------- --+-------+ ----+ +R ASV - mid (thigh) + +-------- --+-------+Could not + + + + + +follow. + + + +-------- --+-------+ ----+ +R SSV - prox. (calf) +3.00 mm + +Absent + + + + +-------- --+-------+ ----+ +R SSV - mid (calf) + +0.51 sec +Present+ --+ + + +-------- --+-------+ ----+ +L CFV + +-------- --+Absent + + + + +-------- --+-------+ ----+ +L FV + +-------- --+Absent + + + + +-------- --+-------+ ----+ +L popliteal + +-------- --+Absent + + + + +-------- --+-------+ ----+ +L saph-femoral +5.80 mm + +Absent + + +junction + + + + + + + +-------- --+-------+ ----+ +L GSV - prox. (thigh)+4.30 mm + +Absent + + + + +-------- --+-------+ ----+ +L GSV - mid (thigh) +3.10 mm + +Absent + + + + +-------- --+-------+ ----+ +L GSV - distal +3.10 mm + +Absent + + +(thigh) + + + + + + + +-------- --+-------+ ----+ +L GSV (knee) +2.20 mm + +Absent + + + + +-------- --+-------+ ----+ +L GSV - prox. (calf) +1.50 mm + +Absent + + + + +-------- --+-------+ ----+ +L GSV - mid (calf) + +-------- --+-------+Could not + + + + + +follow. + + + +-------- --+-------+ ----+ +L ASV - prox. (thigh)+3.10 mm + +Absent + + + + +-------- --+-------+ ----+ +L SSV - prox. (calf) +2.20 mm + +Absent + + + + +-------- --+-------+ ----+ +L SSV - mid (calf) + +-------- --+-------+Could not + + + + + +follow. + + + +-------- --+-------+ ----+ *Length measurements, e.g. diameters, are expressed in mm Prepared and electronically signed by Jade Duenas 06/17/2020 11:41 [place], [place] CT Abdomen Pelvis W Contrast on 06-10-2020 Patient Name: BAM WEBER ---CT--- Exam Date/Time 06/10/2020 08:34:[address] Abdomen/Pelvis w/ IV Contrast (IV Onl Ordering Physician JADE DUENAS Accession Number [id number] CPT4 Codes 53919 (CT Abdomen/Pelvis w/ IV Contrast (IV Onl), Q9967 (CT ISOVUE 370MG/ML&[id number]&M L&1) Reason For Exam pelvic congestion, varicose veins lower extremities Report Indication: Pelvic congestion. No comparison. FINDINGS: Enhanced abdomen and pelvis performed with 75 mL Isovue-370. The lung bases show no major volume loss. Within the abdomen, no free air. Bowel pattern appears nonobstructive; increased stool suspicious for constipation. No definite free fluid focal inflammation acute diverticulitis or appendicitis. No acute process of the spleen pancreas liver gallbladder without stones or the kidneys. No adrenal mass or aneurysm, adenopathy or acute paraspinous process. No spinal compression. Prominent left gonadal vein and pelvic veins. IMPRESSION: Prominent gonadal vein and pelvic veins suspicious for congestion syndrome. Report Dictated on --- Final --- Dictated: 06/10/2020 9:43 am Dictating Physician: MD CRAFT JOHN Signed Date and Time: 06/10/2020 9:46 am Signed by: MD CRAFT JOHN Transcribed Date and Time: 06/10/2020 9:43 [employer] [employer] Peter, [facility] Incoming Radiology Results From [facility] - 06/10/2020 9:47 AM EDT Patient Name: BAM WEBER ---CT--- Exam Date/Time 06/10/2020 08:34:[address] Abdomen/Pelvis w/ IV Contrast (IV Onl Ordering Physician JADE DUENAS Accession Number [id number] CPT4 Codes 15588 (CT Abdomen/Pelvis w/ IV Contrast (IV Onl), Q9967 (CT ISOVUE 370MG/ML&[id number]&M L&1) Reason For Exam pelvic congestion, varicose veins lower extremities Report Indication: Pelvic congestion. No comparison. FINDINGS: Enhanced abdomen and pelvis performed with 75 mL Isovue-370. The lung bases show no major volume loss. Within the abdomen, no free air. Bowel pattern appears nonobstructive; increased stool suspicious for constipation. No definite free fluid focal inflammation acute diverticulitis or appendicitis. No acute process of the spleen pancreas liver gallbladder without stones or the kidneys. No adrenal mass or aneurysm, adenopathy or acute paraspinous process. No spinal compression. Prominent left gonadal vein and pelvic veins. IMPRESSION: Prominent gonadal vein and pelvic veins suspicious for congestion syndrome. Report Dictated on --- Final --- Dictated: 06/10/2020 9:43 am Dictating Physician: MD CRAFT JOHN Signed Date and Time: 06/10/2020 9:46 am Signed by: MD CRAFT JOHN Transcribed Date and Time: 06/10/2020 9:43 [employer] Hemogramon 11-24-2019 Erythrocyte distribution width (RBC) [Ratio] 12.4 % Normal 11.7-14.4 [facility] Comment on above: Performed By: #### C BC1 #### [facility] [address] [place], [place] [address] Hematocrit (Bld) [Volume fraction] 44.2 % Normal 34.1-44.9 [facility] Comment on above: Performed By: #### C BC1 #### [facility] [address] [place], [place] [address] Hemoglobin (Bld) [Mass/Vol] 14.8 g/dL Normal 11.2-15.7 [facility] Comment on above: Performed By: #### C BC1 #### [facility] [address] [place] [address] MCH (RBC) [Entitic mass] 31.1 pg Normal 25.6-32.2 [facility] Comment on above: Performed By: #### C BC1 #### [facility] [address] [place] [address] MCHC (RBC) [Mass/Vol] 33.5 % Normal 31.6-34.8 [facility] Comment on above: Performed By: #### C BC1 #### [facility] [address] [place] [address] MCV (RBC) [Entitic vol] 92.9 fL Normal 79.4-94.8 [facility] Comment on above: Performed By: #### C BC1 #### [facility] [address] [place], [place] [address] Platelet mean volume (Bld) [Entitic vol] 10.6 fL Normal 9.4-12.3 [facility] Comment on above: Performed By: #### C BC1 #### [facility] [address] [place], [place] [address] Platelets (Bld) [#/Vol] 284 thou/cmm Normal 182-369 [facility] Comment on above: Performed By: #### C BC1 #### [facility] [address] [place], [place] [address] RBC (Bld) [#/Vol] 4.76 mil/cmm Normal 3.93-5.22 [facility] Comment on above: Performed By: #### C BC1 #### [facility] [address] [place] [address] RDW SD 42.7 fl Normal 36.4-46.3 [facility] Comment on above: Performed By: #### C BC1 #### [facility] [address] [place] [address] WBC (Bld) [#/Vol] 6.65 thou/cmm Normal 3.98-10.04 [facility] Comment on above: Performed By: #### C BC1 #### [facility] [address] [place] [address] Sed Rateon 11-24-2019 Sed Rate 7 mm/hr Normal 0-20 [facility] Comment on above: Performed By: #### E SR #### [facility] [address] [place] [address] TSH, 3rd generationon 2019 TSH, 3rd generation 1.250 uIU/mL Normal 0.358-3.740 [facility] Comment on above: Performed By: #### T SH3 #### [facility] [address] [place] [id number] Vital Signs Date Time Vital Sign Value Performing Clinician Facility 03-13-2025 15:09-0400 Body height 172.7 cm Rowena Vazquez APRN.CLINICAL DIRECTOR Work Phone: [facility] 03-13-2025 15:09-0400 Body mass index (BMI) [Ratio] 21.9 kg/m2 Rowena Vazquez APRN.CLINICAL DIRECTOR Work Phone: [facility] 03-13-2025 15:09-0400 Body weight 65.32 kg Rowena Vazquez APRN.CLINICAL DIRECTOR Work Phone: [facility] 03-13-2025 15:09-0400 Diastolic blood pressure 85 mm[Hg] Rowena Vazquez APRN.CLINICAL DIRECTOR Work Phone: [facility] 03-13-2025 15:09-0400 Heart rate 76 /min Rowena Vazquez APRN.CLINICAL DIRECTOR Work Phone: [facility] 03-13-2025 15:09-0400 Systolic blood pressure 130 mm[Hg] Rowena Vazquez MEGAN Work Phone: [facility] 02-19-2025 09:35-0400 Body mass index (BMI) [Ratio] 21.92 kg/m2 Caesar Didich DO Work Phone: [facility] 02-19-2025 09:35-0400 Body temperature 98.2 [degF] Caesar Didich DO Work Phone: [facility] 02-19-2025 09:35-0400 Body weight 65.4 kg Caesar Didich DO Work Phone: [facility] 02-19-2025 09:35-0400 Diastolic blood pressure 78 mm[Hg] Caesar Didich DO Work Phone: [facility] 02-19-2025 09:35-0400 Heart rate 74 /min Caesar Didich DO Work Phone: [facility] 02-19-2025 09:35-0400 SaO2% (BldA) [Mass fraction] 100 % Caesar Didich DO Work Phone: [facility] 02-19-2025 09:35-0400 Systolic blood pressure 121 mm[Hg] Caesar Didich DO Work Phone: [facility] 08-06-2024 16:04-0500 Body height 172.7 cm Hilda Hinojosa MD Work Phone: [facility] 08-06-2024 16:04-0500 Body mass index (BMI) [Ratio] 21.59 kg/m2 Hilda Hinojosa MD Work Phone: [facility] 08-06-2024 16:04-0500 Body weight 64.41 kg Hilda Hinojosa MD Work Phone: [facility] 08-06-2024 16:04-0500 Diastolic blood pressure 62 mm[Hg] Hilda Hinojosa MD Work Phone: [facility] 08-06-2024 16:04-0500 Systolic blood pressure 120 mm[Hg] Hilda Hinojosa MD Work Phone: [facility] 03-07-2024 09:53-0400 Body height 172.7 cm Caesar Pineda DO Work Phone: [facility] 03-07-2024 09:53-0400 Body mass index (BMI) [Ratio] 20.83 kg/m2 Caesar Didich DO Work Phone: [facility] 03-07-2024 09:53-0400 Body weight 62.14 kg Caesar Pineda DO Work Phone: [facility] 01-25-2024 14:13-0400 Body mass index (BMI) [Ratio] 21.42 kg/m2 Caesar Didjose antonio DO Work Phone: [facility] 01-25-2024 14:13-0400 Body temperature 98.49 [degF] Caesar Pineda DO Work Phone: [facility] 01-25-2024 14:13-0400 Body weight 63.9 kg Caesar Pineda DO Work Phone: [facility] 01-25-2024 14:13-0400 Diastolic blood pressure 74 mm[Hg] Caesar Pineda DO Work Phone: [facility] 01-25-2024 14:13-0400 Heart rate 63 /min Caesar Pineda DO Work Phone: [facility] 01-25-2024 14:13-0400 SaO2% (BldA) [Mass fraction] 100 % Caesar Didjose antonio DO Work Phone: [facility] 01-25-2024 14:13-0400 Systolic blood pressure 114 mm[Hg] Caesar Didich DO Work Phone: [facility] 12-12-2022 12:41-0400 Body height 172.7 cm Caesar Pineda DO Work Phone: [facility] 12-12-2022 12:41-0400 Body temperature 99.1 [degF] Caesar Pineda DO Work Phone: [facility] 12-12-2022 12:41-0400 Body weight 65.73 kg Caesar Didjose antonio DO Work Phone: [facility] 12-12-2022 12:41-0400 Diastolic blood pressure 82 mm[Hg] Caesar Didjose antonio DO Work Phone: [facility] 12-12-2022 12:41-0400 Heart rate 83 /min Caesar Pineda DO Work Phone: [facility] 12-12-2022 12:41-0400 Systolic blood pressure 122 mm[Hg] Caesar Pineda DO Work Phone: [facility] 06-20-2022 09:32-0400 Diastolic blood pressure 78 mm[Hg] Javi Hunt MD Work Phone: [facility] 06-20-2022 09:32-0400 Heart rate 64 /min Javi Hunt MD Work Phone: [facility] 06-20-2022 09:32-0400 Systolic blood pressure 121 mm[Hg] Javi Hunt MD Work Phone: [facility] 06-05-2022 07:23-0400 Diastolic blood pressure 79 mm[Hg] Javi Hunt MD Work Phone: [facility] 06-05-2022 07:23-0400 Heart rate 73 /min Javi Hunt MD Work Phone: [facility] 06-05-2022 07:23-0400 Systolic blood pressure 121 mm[Hg] Javi Hunt MD Work Phone: [facility] 05-02-2022 12:02-0400 Diastolic blood pressure 86 mm[Hg] Javi Hunt MD Work Phone: [facility] 05-02-2022 12:02-0400 Heart rate 56 /min Javi Hunt MD Work Phone: [facility] 05-02-2022 12:02-0400 Systolic blood pressure 134 mm[Hg] Javi Hunt MD Work Phone: [facility] 04-18-2022 14:10-0400 Body height 172.7 cm Clare Strong MD Work Phone: [facility] 04-18-2022 14:10-0400 Body weight 63.96 kg Clare Strong MD Work Phone: [facility] 04-18-2022 14:10-0400 Diastolic blood pressure 71 mm[Hg] Clare Strong MD Work Phone: [facility] 04-18-2022 14:10-0400 Systolic blood pressure 120 mm[Hg] Clare Strong MD Work Phone: [facility] 09-07-2020 16:15-0500 Body Temperature 97.5 [degF] [facility] 09-07-2020 16:15-0500 Pulse (Heart Rate) 64 /min [facility] 09-07-2020 16:15-0500 Pulse Oximetry 100 % [facility] [place] 09-07-2020 16:15-0500 Respiratory Rate 14 /min [facility] 09-07-2020 15:00-0500 BP Diastolic 93 mm[Hg] [facility] [place] 09-07-2020 15:00-0500 BP Systolic 134 mm[Hg] [facility] [place] 09-07-2020 09:09-0500 BMI (Body Mass Index) 20.22 kg/m2 [facility] [place] 09-07-2020 09:09-0500 Body weight 60.33 kg [facility] , [place] 09-07-2020 09:09-0500 Height 172.7 cm [facility] [place] 08-13-2020 16:00-0500 Body Temperature 98.2 [degF] [facility] [place] 08-13-2020 16:00-0500 BP Diastolic 77 mm[Hg] [facility] [place] 08-13-2020 16:00-0500 BP Systolic 133 mm[Hg] [facility] [place] , [place] 08-13-2020 16:00-0500 Pulse (Heart Rate) 65 /min Jade Duenas [facility], [place] 08-13-2020 16:00-0500 Pulse Oximetry 100 % Jade Ribera [facility] , [place] 08-13-2020 15:30-0500 Respiratory Rate 15 /min Jade Torrey [facility] [place] , [place] 08-02-2020 08:02-0500 BMI (Body Mass Index) 20.53 kg/m2 Jade Torrey [facility] 08-02-2020 08:02-0500 Body Temperature 98.8 [degF] Jade Duenas [facility] , [place] 08-02-2020 08:02-0500 Body weight 61.24 kg Jade Duenas [facility] , [place] 08-02-2020 08:02-0500 BP Diastolic 84 mm[Hg] J[place]e [place] [facility] , [place] 08-02-2020 08:02-0500 BP Systolic 122 mm[Hg] [facility] [place] [facility] 08:02-0500 Height 172.7 cm Jade Torrey [facility] , [place] 08-02-2020 08:02-0500 Pulse (Heart Rate) 81 /min [facility] [place] 08-[facility] 08:02-0500 Pulse Oximetry 100 % Jade Duenas [facility] , [place] 08-02-2020 08:02-0500 Respiratory Rate 16 /min Jade Torrey [place], [place] Encounters Encounter Date Encounter Type Care Provider Facility Start: 07-31-2025 End: 07-31-2025 ambulatory CAESAR PINEDA Facility:[facility] Start: 06-01-2025 End: 06-01-2025 Subsequent hospital visit by physician Dania [id number] [facility] Comment on above: Screening for heart disease Start: 06-01-2025 End: 06-01-2025 ambulatory DAYLIN MONTERO [facility] Start: 03-16-2025 ambulatory ROWENA VAZQUEZ Facility:[facility] Start: 03-16-2025 End: 03-16-2025 Subsequent hospital visit by physician Screen Mammo Divine Tovar Work Phone: Radiology Comment on above: n/a. Start: 03-13-2025 End: 03-13-2025 ambulatory ROWENA VAZQUEZ Facility[facility] Start: 03-13-2025 End: 03-13-2025 Patient encounter procedure Rowena Vazquez PAINTINGS RESTORER.CLINICAL DIRECTOR Work Phone: [facility] Comment on above: At high risk for michael ast cancer (Primary Dx); Family history of breast cancer; Dense breast tissue; Visit for screening mammogram Start: 02-19-2025 End: 02-19-2025 Patient encounter procedure Caesar Pineda DO Work Phone: [facility] Comment on above: Well adult exam (Susannah randi Dx) Start: 02-19-2025 End: 02-19-2025 Patient encounter status Caesar Pineda DO Work Phone: [facility] Work Phone: Start: 02-19-2025 End: 02-19-2025 ambulatory CAESAR PINEDA Facility:[facility] Start: 02-19-2025 Encounter for genera l adult medical examination without abnormal findings CAESAR PINEDA [facility] Start: 08-06-2024 End: 08-06-2024 ambulatory HILDA HINOJOSA Facility:[facility] Start: 08-06-2024 End: 08-06-2024 Patient encounter procedure Hilda Hinojosa MD Work Phone: [facility] Comment on above: Acute vaginitis (Susannah randi Dx); Rectal itching Start: 06-19-2024 End: 06-28-2024 ambulatory Caesar Pineda DO Work Phone: [facility] Comment on above: Screening breast MRI Start: 03-18-2024 Telephone encounter Caesar Nieves DO Work Phone: [facility] Comment on above: Results Start: 03-07-2024 End: 03-07-2024 ambulatory CAESAR PINEDA [facility] Start: 03-07-2024 End: 03-07-2024 Subsequent hospital visit by physician Caesar Pineda Work Phone: [facility] Comment on above: Encounter for screen ing mammogram for malignant neoplasm of breast Start: 02-12-2024 ambulatory Caesar Pineda DO Work Phone: [facility] Comment on above: Lab results Start: 02-12-2024 E-mail encounter fro m caregiver Caesar Pineda Work Phone: [facility] Start: 01-29-2024 End: 04-29-2024 Transcribe Orders Caesar Pineda Work Phone: [facility] Central Scheduling Comment on above: Encounter for screen ing mammogram for malignant neoplasm of breast (Primary Dx) Start: 01-25-2024 End: 01-25-2024 Patient encounter procedure Caesar Pineda Work Phone: [facility] Comment on above: Well adult exam (Susannah randi Dx); Fatigue, unspecified type; Screening for colon cancer Start: 01-25-2024 End: 01-25-2024 Patient encounter status Caesar Pineda Work Phone: [facility] Work Phone: Start: 10-03-2023 ambulatory Caesar Pineda DO Work Phone: Internal Medicine [facility] [place] Start: 01-11-2023 Telephone encounter Елена carlos RN [facility] Clinical Communication Comment on above: Appointment Start: 12-12-2022 End: 12-12-2022 Patient encounter procedure Caesar Pineda DO Work Phone: Family Medicine Comment on above: Well adult exam (Susannah randi Dx); Fatigue, unspecified type Start: 12-12-2022 End: 12-12-2022 Patient encounter status Caesar Pineda DO Work Phone: Family Medicine Start: 09-21-2022 Patient encounter procedure [facility] Provider [facility] Start: 06-20-2022 End: 06-20-2022 Patient encounter procedure Javi Hunt MD Work Phone: Vascular Surgery Comment on above: Postoperative visit (Primary Dx) Start: 06-05-2022 End: 06-05-2022 Patient encounter procedure Javi Hunt MD Work Phone: Vascular Surgery Comment on above: Varicose veins of le ft lower extremity with complications (Primary Dx) Start: 06-02-2022 Orders Only Javi Hunt MD Work Phone: Vascular Surgery Comment on above: Varicose veins of le ft lower extremity with pain (Primary Dx) Start: 05-02-2022 End: 05-02-2022 Patient encounter procedure Javi Hunt MD Work Phone: Vascular Surgery Comment on above: Varicose veins of le ft lower extremity with complications (Primary Dx) Start: 04-18-2022 End: 04-18-2022 Patient encounter procedure Clare Strong MD Work Phone: [facility] Comment on above: Hymenal remnant Start: 12-12-2021 End: 12-12-2021 Subsequent hospital visit by physician Jade Duenas MD Work Phone: [facility] Comment on above: Obstruction of iliac vein; Aftercare following surgery of the circulatory system Start: 12-06-2021 End: 12-06-2021 Subsequent hospital visit by physician Ana Rosa Freeman DO Work Phone: [facility] Comment on above: Arrived Start: 04-04-2021 End: 04-04-2021 Subsequent hospital visit by physician Jade Duenas MD Work Phone: [facility] Comment on above: Arrived Start: 09-07-2020 End: 09-07-2020 Subsequent hospital visit by physician Jade Duenas Work Phone: [facility] General Surgery Comment on above: Arrived Start: 08-16-2020 End: 08-16-2020 Subsequent hospital visit by physician Jade Duenas Work Phone: [facility] Comment on above: Obstruction of iliac vein Start: 08-13-2020 End: 08-13-2020 Subsequent hospital visit by physician Jade Duenas Work Phone: [facility] General Surgery Comment on above: Arrived Start: 08-03-2020 End: 08-03-2020 Subsequent hospital visit by physician [place] Mammography Room 1 [facility] Comment on above: Arrived Start: 08-02-2020 End: 08-02-2020 Subsequent hospital visit by physician Jade Duenas Work Phone: [facility]Admit [facility] Comment on above: Arrived Start: 06-17-2020 End: 06-17-2020 Subsequent hospital visit by physician Jade Duenas Work Phone: [facility] Comment on above: Pelvic congestion; Varicose veins of both lower extremities with pain Start: 06-10-2020 End: 06-10-2020 Subsequent hospital visit by physician Jade Duenas Work Phone: [facility] Comment on above: Arrived Procedures Date Procedure Procedure Detail Performing Clinician Start: 06-01-2025 Ct heart no contrast quant eval coronry calcium Daylin Montero PAINTINGS RESTORER-CNM, PAINTINGS RESTORER-CLINICAL DIRECTOR Work Phone: Start: 03-16-2025 Mammography [facility] 1 Start: 03-13-2024 Lipid 1995 panel - S calvin or Plasma Caesar Didich DO Work Phone: Start: 03-07-2024 End: 03-07-2024 Screening digital breast tomosynthesis bi Caesar Pineda DO Work Phone: Start: 02-06-2024 Lipid 1995 panel - S calvin or Plasma Caesar Didich DO Work Phone: Start: 12-19-2022 Lipid 1996 panel - S calvin or Plasma Caesar Didich DO Work Phone: Start: 12-12-2021 VL US DUPLEX AORTA I VC ILIAC COMPLETE Jade Duenas MD Work Phone: Start: 12-06-2021 End: 12-06-2021 Screening digital breast tomosynthesis bi Ana Rosa Freeman DO Work Phone: Start: 08-15-2021 Microscopic observat ion [Identifier] in Cervix by Cyto stain NA Polifrone DO Work Phone: Start: 04-04-2021 VL US DUPLEX AORTA I VC ILIAC COMPLETE Jade Duenas MD Work Phone: Start: 09-07-2020 OPERATIVE REPORT 3m Sca nning Start: 09-07-2020 Urine test visual color cmprsn violet Steele Work Phone: Start: 08-16-2020 Dup-scan xtr veins unilateral/limited study Jade Duenas Work Phone: Start: 08-13-2020 OPERATIVE REPORT 3m Sca nning Start: 08-13-2020 Basic metabolic pane l calcium total Jade Duenas Work Phone: Start: 08-13-2020 Urine test visual color cmprsn violet Schroeder Work Phone: Start: 08-03-2020 Us breast uni real t adams with image limited C Wesley Polifrone Work Phone: Start: 08-03-2020 Diagnostic mammograp hy computer-aided detcj bi C Wesley Polif[employer]SentinelOne Work Phone: Start: 08-02-2020 Blood count hemoglobin Charissecassandra Burgos Work Phone: Start: 06-17-2020 Dup-scan xtr veins c omplete bilateral study Jade Duenas Work Phone: Start: 06-10-2020 CT Abdomen and Pelvi s W contrast IV Jade Duenas Work Phone: Start: 05-23-2013 Mammography Clare Strong MD Work Phone: Plan of Treatment Date Care Activity Detail Author Start: 2038 RSV Immunization age d 60 or older (1 - 1-dose 60+ series) RSV Immunization aged 60 or older (1 - 1-dose 60+ series) [facility] [employer] Start: 03-13-2029 Lipid panel Lipid Screening [facility] Start: 03-12-2029 DTaP/Tdap/Td vaccine (2 - Td or Tdap) DTaP/Tdap/Td vaccine (2 - Td or Tdap) [facility] Start: 03-12-2029 DTaP/Tdap/Td vaccine (2 - Td) DTaP/Tdap/Td vaccine (2 - Td) [place] Start: 03-12-2029 DTaP/Tdap/Td Vaccine s (2 - Td or Tdap) DTaP/Tdap/Td Vaccines (2 - Td or Tdap) [facility] Start: 03-12-2029 Urine microalbumin profile [facility] Start: 02-05-2029 Lipid panel Lipid Screening [facility] Start: 01-31-2028 Zoster Vaccines (1 of 2) Zoste r Vaccines (1 of 2) [facility] Start: 12-20-2027 Lipid panel Lipid Screening [facility] Start: 03-13-2027 Diabetes Screening Diabetes Screenin g [facility] Start: 02-05-2027 Diabetes Screening Diabetes Screenin g [facility] Start: 08-15-2026 HPV TESTING HPV TESTING [facility] Start: 08-15-2026 PAP TESTING PAP TESTING [facility] Start: 08-15-2026 Screening for malign ant neoplasm of cervix [facility] Start: 03-16-2026 Screening for malign ant neoplasm of breast [facility] Start: 12-19-2025 Diabetes Screening Diabetes Screenin g [facility] Start: 09-22-2025 End: 09-22-2025 Patient encounter procedure 09/22/2025 9:00 AM EST Office Visit [facility] [address] [place] [id number] Rowena Vazquez, PAINTINGS RESTORER.CLINICAL DIRECTOR [address] [place] [address] mri follow up results, . [facility] Comment on above: mri follow up result s, . Start: 09-15-2025 End: 09-15-2025 Patient encounter procedure 09/15/2025 12:45 PM EST Appointment RADIO MRI [facility] [address] [place] [address] MRI [facility] BREAST [place]. RADIO [facility] Comment on above: MRI [facility] BREAST [place] . Start: 09-12-2025 End: 04-12-2026 MR Breast - bilateral WO and W contrast IV MRI BREAST WO/W IVCON BILATERAL Radiology Routine At high risk for breast cancer Expected: 09/12/2025, Expires: 04/12/2026 [facility] Work Phone: Comment on above: Expected: 09/12/2025 , Expires: 04/12/2026 Start: 05-25-2025 COVID-19 Vaccine ( season) COVID-19 Vaccine () [facility] Start: 05-25-2025 Influenza vaccination [facility] Start: 03-13-2025 End: 03-13-2025 Patient encounter procedure 03/13/2025 3:00 PM EDT Office Visit [facility] [address] [place] [id number] Rowena aVzquez, PAINTINGS RESTORER.CLINICAL DIRECTOR [address] [place] [address] family history of breast cancer high risk records in care everywhere. I have requested her films from [facility] films have been received and digitized on 02/17/2025 [facility] Comment on above: family history of br east cancer high risk records in care everywhere. I have requested her films from [facility] films have been received and digitized on 02/17/2025 Start: 03-07-2025 Screening for malign ant neoplasm of breast [facility] Start: 02-19-2025 End: 05-21-2025 CBC W Auto Differential panel - Blood COMPLETE BLOOD COUNT AND DIFFERENTIAL Lab Routine Well adult exam Expected: 02/19/2025, Expires: 05/21/2025 [facility] Work Phone: Comment on above: Expected: 02/19/2025 , Expires: 05/21/2025 Start: 02-19-2025 End: 05-21-2025 Comprehensive metabolic 2000 panel - Serum or Plasma COMPREHENSIVE METABOLIC PANEL Lab Routine Well adult exam Expected: 02/19/2025, Expires: 05/21/2025 [facility] Comment on above: Expected: 02/19/2025 , Expires: 05/21/2025 Start: 02-19-2025 End: 05-21-2025 Lipid 1996 panel - Serum or Plasma LIPID PANEL, FASTING Lab Routine Well adult exam Expected: 02/19/2025, Expires: 05/21/2025 [facility] Comment on above: Expected: 02/19/2025 , Expires: 05/21/2025 Start: 08-15-2024 Screening for malign ant neoplasm [facility]ix [facility] Start: 05-25-2024 Covid-19 Vaccine () Covid-19 Vaccine () [facility] Start: 05-25-2024 Influenza vaccination [facility] Start: 04-24-2024 End: 07-24-2024 Comprehensive metabolic 2000 panel - Serum or Plasma COMPREHENSIVE METABOLIC PANEL Lab Routine Hyperlipidemia, mixed Expected: 04/24/2024, Expires: 07/24/2024 [facility] Comment on above: Expected: 04/24/2024 , Expires: 07/24/2024 Start: 04-24-2024 End: 07-24-2024 Lipid 1996 panel - Serum or Plasma LIPID PANEL BASIC Lab Routine Elevated liver enzymes Expected: 04/24/2024, Expires: 07/24/2024 [facility] Work Phone: Comment on above: Expected: 04/24/2024 , Expires: 07/24/2024 Start: 09-24-2023 Depression Assessment Depression Ass essment [facility] Start: 05-25-2023 Covid-19 Vaccine () Covid-19 Vaccine () [facility] Start: 05-25-2023 Influenza vaccination [facility] Start: 2023 Screening for malign ant neoplasm of colon [facility] Start: 12-12-2022 End: 02-11-2023 25-hydroxyvitamin D3 [Mass/volume] in Serum or Plasma VITAMIN D 25 HYDROXY Lab Routine Fatigue, unspecified type Expected: 12/12/2022, Expires: 02/11/2023 [facility] Work Phone: Comment on above: Expected: 12/12/2022 , Expires: 02/11/2023 Start: 12-12-2022 End: 02-11-2023 CBC W Auto Differential panel - Blood CBC + DIFF Lab Routine Well adult exam Expected: 12/12/2022, Expires: 02/11/2023 [facility] Work Phone: Comment on above: Expected: 12/12/2022 , Expires: 02/11/2023 Start: 12-12-2022 End: 02-11-2023 Comprehensive metabolic 2000 panel - Serum or Plasma COMP METABOLIC PANEL Lab Routine Well adult exam Expected: 12/12/2022, Expires: 02/11/2023 [facility] Work Phone: Comment on above: Expected: 12/12/2022 , Expires: 02/11/2023 Start: 12-12-2022 End: 02-11-2023 Lipid 1996 panel - Serum or Plasma LIPID PANEL BASIC Lab Routine Well adult exam Expected: 12/12/2022, Expires: 02/11/2023 [facility] Work Phone: Comment on above: Expected: 12/12/2022 , Expires: 02/11/2023 Start: 12-12-2022 End: 02-11-2023 Thyrotropin [Units/volume] in Serum or Plasma TSH BLD Lab Routine Fatigue, unspecified type Expected: 12/12/2022, Expires: 02/11/2023 [facility] Work Phone: Comment on above: Expected: 12/12/2022 , Expires: 02/11/2023 Start: 12-06-2022 Mammography MAMMOGRAM [facility] Start: 12-06-2022 Screening for malign ant neoplasm of breast [facility] Start: 09-24-2022 DEPRESSION ASSESSMENT DEPRESSION ASS ESSMENT [facility] Start: 05-25-2022 Influenza vaccination INFLUENZA (#1) [facility] Start: 12-12-2021 End: 12-12-2021 Patient encounter procedure 12/12/2021 Appointment Vascular Lab [facility] Start: 11-25-2021 COVID-19 Vaccine (3 - Booster for Pfizer series) COVID-19 Vaccine (3 - Booster for Pfizer series) [facility] Start: 09-24-2021 DEPRESSION ASSESSMENT DEPRESSION ASS ESSMENT [facility] Start: 08-22-2021 COVID-19 VACCINE (3 - Booster for Pfizer series) COVID-19 VACCINE (3 - Booster for Pfizer series) [facility] Start: 08-03-2021 Screening for malign ant neoplasm of breast Breast cancer screen [place], [place] Start: 06-27-2021 COVID-19 VACCINE (2 - Pfizer series) COVID-19 VACCINE (2 - Pfizer series) [facility] Start: 05-25-2021 Influenza vaccination Flu vaccine (# 1) [facility] Start: 09-20-2020 End: 09-20-2020 Office Visit 09/20/2020 Office Visit Vascular Surgery Jade Duenas MD [address] [place] [address] [phone] [facility] Start: 08-30-2020 End: 08-30-2020 Office Visit 08/30/2020 Office Visit Vascular Surgery Jade Duenas MD [address] [place], [place] [id number] [facility] Start: 08-13-2020 End: 08-13-2020 Appointment 08/13/2020 Appointment General Surgery Jade Duenas MD [address] [place], [place] [id number] [facility] Start: 08-03-2020 End: 08-03-2020 Appointment [facility] Start: 06-17-2020 End: 06-17-2020 Appointment 06/17/2020 Appointment Vascular Lab Jade Duenas MD [address] [place], [place] [id number] [facility] Start: 05-25-2020 Influenza vaccination Flu vaccine (# 1) [place], [place] Start: 2018 Lipid panel Lipid screen [facility] Start: 2018 Mammography MAMMOGRAM [facility] Start: 2018 Screening for malign ant neoplasm of breast Breast cancer screen [place], [place] Start: 08-26-2009 MMR Vaccines (1 of 1 - Standard series) MMR Vaccines (1 of 1 - Standard series) [facility] Start: 01-31-2008 Screening for malign ant neoplasm of cervix [facility] Start: 1999 Screening for malign ant neoplasm of cervix [facility] Start: 1997 Hepatitis B Vaccine (1 of 3 - 19+ 3-dose series) Hepatitis B Vaccine (1 of 3 - 19+ 3-dose series) [facility] Start: 1997 Hepatitis B Vaccines (1 of 3 - 19+ 3-dose series) Hepatitis B Vaccines (1 of 3 - 19+ 3-dose series) [facility] Start: 01-31-1996 Anxiety Screening Anxiety Screening [facility] Start: 01-31-1996 Depression Screening Depression Scre ening [facility] Start: 01-31-1996 Diabetes mellitus screening Diabetes Screening [facility] Start: 01-31-1996 Hepatitis C screening Hepatitis C Sc reening [facility] Start: 1993 [address] HIV screen [facility] Start: 1990 Adult depression screening assessment DEPRESSION SCREENING [facility] Start: 1990 COVID-19 Vaccine (1) COVID-19 Vaccin e (1) [facility] Work Phone: Start: 1990 Depression Screen Depression Screen [facility] Start: 1979 MMR Vaccines (1 of 1 - Standard series) MMR Vaccines (1 of 1 - Standard series) [facility] Start: 1978 HEPATITIS B (1 of 3 - 3-dose series) HEPATITIS B (1 of 3 - 3-dose series) [facility] Start: 1978 Hepatitis B Vaccine (1 of 3 - 3-dose series) Hepatitis B Vaccine (1 of 3 - 3-dose series) [facility] Start: 1978 Hepatitis B Vaccines (1 of 3 - 3-dose series) Hepatitis B Vaccines (1 of 3 - 3-dose series) [facility] Start: 1978 Hepatitis C screening Hepatitis C sc reen [facility] Start: 1978 HIV screening HIV Screening [facility] Start: 1978 Lipid panel Lipid Panel [facility] Start: 1978 Screening for malign ant neoplasm of colon [facility] Start: 1978 Yearly Adult Physical Yearly Adult P hysical [facility] BACTERIAL VAGINOSIS NAAT BACTERI AL VAGINOSIS NAAT Lab Routine Acute vaginitis 08/06/2024 4:46 PM [facility] End: 08-13-2020 Blood glucose - POCT Blood glucose - POCT Point of Care Testing STAT One Time for 1 Occurrences starting 08/13/2020 until 08/13/2020 [facility]: One Time for 1 Occur rences starting 08/13/2020 until 08/13/2020 End: 09-07-2020 Blood glucose - POCT Blood glucose - POCT Point of Care Testing STAT One Time for 1 Occurrences starting 09/07/2020 until 09/07/2020 [facility] Comment on above: One Time for 1 Occur rences starting 09/07/2020 until 09/07/2020 GIANCARLO/TRICHOMONAS NAAT GIANCARLO /TRICHOMONAS NAAT Lab Routine Acute vaginitis 08/06/2024 4:46 PM EST [facility] Work Phone: Chlamydia trachomatis+Neisseria gonorrhoeae DNA [Presence] in Unspecified specimen by CORRINA with probe detection GONORRHEA/CHLAMYDIA NAAT Lab Routine Acute vaginitis 08/06/2024 4:46 PM [facility] End: 08-13-2020 Creatinine [Mass/Vol] Creatinine, serum Lab STAT One Time for 1 Occurrences starting 08/13/2020 until 08/13/2020 [facility] Comment on above: One Time for 1 Occur rences starting 08/13/2020 until 08/13/2020 End: 09-07-2020 Creatinine [Mass/Vol] Creatinine, serum Lab STAT One Time for 1 Occurrences starting 09/07/2020 until 09/07/2020 [facility] Comment on above: One Time for 1 Occur rences starting 09/07/2020 until 09/07/2020 DBT Breast - bilater al screening APURVA SCREENING W SHAJI Radiology Routine Visit for screening mammogram 03/16/2025 2:56 PM EDT [facility] Work Phone: End: 08-13-2020 FL Greater Than 1 Hour [place] Greater Than 1 Hour Imaging Routine Once for 1 Occurrences starting 08/13/2020 until 08/13/2020 [facility] Comment on above: Once for 1 Occurrenc es starting 08/13/2020 until 08/13/2020 FL Greater Than 1 Hour [place] End: 09-07-2020 FL Greater Than 1 Hour [place] Greater Than 1 Hour Imaging Routine Once for 1 Occurrences starting 09/07/2020 until 09/07/2020 [facility] [place] Comment on above: Once for 1 Occurrenc es starting 09/07/2020 until 09/07/2020 End: 08-13-2020 Intermittent pulse oximetry Pulse Oximetry Spot Check Respiratory Care Routine One Time for 1 Occurrences starting 08/13/2020 until 08/13/2020 [facility] [place] Comment on above: One Time for 1 Occur rences starting 08/13/2020 until 08/13/2020 End: 09-07-2020 Intermittent pulse oximetry Pulse Oximetry Spot Check Respiratory Care Routine One Time for 1 Occurrences starting 09/07/2020 until 09/07/2020 [facility] [place] Comment on above: One Time for 1 Occur rences starting 09/07/2020 until 09/07/2020 End: 11-01-2024 APURVA SCREENING APURVA SCREENING Radiology Routine Encounter for screening mammogram for breast cancer 1 Occurrences starting 10/03/2023 until 11/01/2024 [facility] Work Phone: Comment on above: 1 Occurrences starti ng 10/03/2023 until 11/01/2024 End: 04-12-2026 MRI BREAST 3D POST PROCESSING MRI BREAST 3D POST PROCESSING Radiology Routine At high risk for breast cancer 1 Occurrences starting 03/13/2025 until 04/12/2026 [facility] Comment on above: 1 Occurrences starti ng 03/13/2025 until 04/12/2026 Oxygen therapy [Mini mum Data Set] [facility] [place] Comment on above: Daily until disconti nued starting 08/13/2020 Daily until disconti nued starting 09/07/2020 Phase I & II - meter ed glucose [facility] [place] Comment on above: As Needed until disc ontinued starting 08/13/2020 As Needed until disc ontinued starting 09/07/2020 End: 08-13-2020 Potassium w/ Reflex to Magnesium Potassium w/ Reflex to Magnesium Lab Routine One Time for 1 Occurrences starting 08/13/2020 until 08/13/2020 [facility] [place] Comment on above: One Time for 1 Occur rences starting 08/13/2020 until 08/13/2020 End: 09-07-2020 Potassium w/ Reflex to Magnesium Potassium w/ Reflex to Magnesium Lab Routine One Time for 1 Occurrences starting 09/07/2020 until 09/07/2020 [place] Comment on above: One Time for 1 Occur rences starting 09/07/2020 until 09/07/2020 End: 08-13-2020 Protime-INR Protime-INR Lab STAT One Time for 1 Occurrences starting 08/13/2020 until 08/13/2020 [place] Comment on above: One Time for 1 Occur rences starting 08/13/2020 until 08/13/2020 End: 09-07-2020 Protime-INR Protime-INR Lab STAT One Time for 1 Occurrences starting 09/07/2020 until 09/07/2020 [place] Comment on above: One Time for 1 Occur rences starting 09/07/2020 until 09/07/2020 End: 01-24-2025 Screening colonoscopy COLONOSCOPY SCREENING Endoscopy Routine Screening for colon cancer 1 Occurrences starting 01/25/2024 until 01/24/2025 [facility] Work Phone: Comment on above: 1 Occurrences starti ng 01/25/2024 until 01/24/2025 Spirometry panel [place], [place] Comment on above: Q1H PRN until discon tinued starting 08/13/2020 Q1H PRN until discon tinued starting 09/07/2020 End: 06-02-2023 US VENOUS INCOMPETENCY UNL VAS LAB US VENOUS INCOMPETENCY UNL VAS LAB Vascular Lab Routine Varicose veins of left lower extremity with pain 1 Occurrences starting 06/02/2022 until 06/02/2023 [facility] Work Phone: Comment on above: 1 Occurrences starti ng 06/02/2022 until 06/02/2023 [facility] Immunizations Immunization Date Immunization Notes Care Provider Krystyna [facility] 06-27-2021 Pfizer SARS-CoV-2 Vaccination Елена Zafar RN [facility] 06-06-2021 Pfizer SARS-CoV-2 Vaccination Елена Zafar RN [facility] 03-12-2019 tetanus toxoid, redu meghan diphtheria toxoid, and acellular pertussis vaccine, adsorbed [facility] [place] 06-28-2016 influenza, injectabl e, quadrivalent, preservative free [facility] [place] 06-28-2016 influenza virus vacc ine, unspecified formulation Елена Zafar RN [facility] 06-16-2015 influenza virus vacc ine, unspecified formulation [facility] [place] 06-16-2015 influenza, injectabl e, quadrivalent, contains preservative [facility] [place] 07-29-2009 novel Influenza-H1N1 -09, live virus for nasal administration [place], [place] Payers Date Payer Category Payer Private Health Insurance [employer] OAP [id number] 2020-Present [phone] [address] [place] [address] Open Access [id number] 2020 Private Health Insurance [id number] 2020 Private Health Insurance [id number] 2020 Unknown [employer] [id number] 2020-Present [phone] [address] [place] [address] [id number] 2020 Unknown [id number] Social History Date Type Detail Facility Start: 05-26-2020 End: 05-02-2022 Tobacco smoking status NHIS Never smoker [place] Start: 05-26-2020 End: 05-02-2022 Tobacco use and exposure Never used [facility] Start: 05-26-2020 End: 04-05-2025 Alcohol intake [facility] (finding) [facility] Start: 05-24-2020 Alcohol Comment Social [facility] BUSCH Start: 1980 Sex Assigned At Not on file [facility] Exposure to SARS-CoV -2 (event) Not sure [facility] Start: 09-20-2020 End: 01-23-2024 Alcohol intake [facility] Start: 1980 Sex Assigned At Female [facility] Start: 04-18-2022 End: 06-20-2022 Alcohol intake Current non-drinker of alcohol (finding) [facility] Start: 12-11-2022 History SDOH Alcohol Frequency 5 [facility] Start: 12-11-2022 History SDOH Alcohol Std Drinks 1 [facility] Start: 12-11-2022 History SDOH Social Connections Yazidism 3 [facility] Start: 12-11-2022 History SDOH Physical Activity DPW 4 [facility] Start: 12-11-2022 History SDOH Physical Activity MPS 6 [facility] Start: 12-11-2022 History SDOH Transport Med 2 [facility] Start: 10-31-2022 Alcohol Comment social [facility] Start: 12-11-2022 End: 01-23-2024 Social connection and isolation panel [facility] Do you belong to any clubs or organizations such as mandaeism groups, unions, fraternal or athletic groups, or school groups? Yes [facility] Are you now , , , , never or living with a partner? [facility] How often to you hav e a drink containing alcohol? 4 or more times a week [facility] How many standard dr inks containing alcohol do you have on a typical day? 1 or 2 [facility] How often do you hav e 6 or more drinks on 1 occasion? Never [facility] Start: 03-09-2025 How hard is it for you to pay for the very basics like food, housing, medical care, and heating Not hard at all [facility] Do you feel stress - tense, restless, nervous, or anxious, or unable to sleep at night because your mind is troubled all the time - these days [OSQ] Not at all [facility] (I/We) worried rian er (my/our) food would run out before (I/we) got money to buy more. Never true [facility] In the past 12 month s, was there a time when you were not able to pay the mortgage or rent on time? No [facility] Start: 07-13-2022 Gender identity Identifies as female gender (finding) [facility] How often to you hav e a drink containing alcohol? 2-3 time sa week [facility] Tobacco smoking stat [facility] Tobacco smoking consumption unknown [facility] Work Phone: Functional Status Date Assessment Result Facility 03-12-2019 Are you deaf, or do you have serious difficulty hearing No 03/12/2019 1:37 PM Callie Romo RN No [facility] 03-12-2019 Are you blind, or do you have serious difficulty seeing, even when wearing glasses No 03/12/2019 1:37 PM Callie Romo RN No [facility] 03-12-2019 Do you have serious difficulty walking or climbing stairs No 03/12/2019 1:37 PM Callie Romo RN No [facility] 03-12-2019 Do you have difficul ty dressing or bathing No 03/12/2019 1:37 PM Callie Romo, MARY No [facility] 03-12-2019 Because of a physica l, mental, or emotional condition, do you have difficulty doing errands alone such as visiting a physician's office or shopping No 03/12/2019 1:37 PM Callie Romo RN No [facility] Mental Status Date Assessment Result Facility 03-12-2019 Because of a physica l, mental, or emotional condition, do you have serious difficulty concentrating, remembering, or making decisions No 03/12/2019 1:37 PM Callie Romo RN No [facility] Clinical Notes 05-31-2016 to 07-31-2025 Domonique Umana, (R) - 03/16/2025 2:40 PM EDTPatiRowena Loco APRN.CLINICAL DIRECTOR - 03/13/2025 3:17 PM EDTCaesar Pineda DO - 02/19/2025 9:58 AM EDT Note Date & Type Note Facility 07-31-2025 Note HNO ID: [id number] Author: CAESAR PINEDA DO Service: ? Author Type: Physician Type: Progress Notes Filed: 07/31/2025 12:17 Note Text: Memory Problems (Patient having issues with memory,lots of brain fog since perimenopause ) Anxiety The history is provided by the patient. No seismic interpreter was used. Anxiety Pertinent negatives include no agitation, confusion, delusions, hallucinations, intoxication, loss of consciousness, seizures, self-injury, somnolence, violence or weakness. HISTORY REVIEWED PAST MEDICAL HISTORY Diagnosis Date Abnormal Pap smear of cervix Blood dyscrasia mthfr Dense breast tissue 04/05/2025 Pelvic congestion syndrome hemorrhage (HCC) PAST SURGICAL HISTORY Procedure Laterality Date ENDOVENOUS RF ABLATION SAPHENOUS VEIN Left 05/25/2022 left leg, Dr Hunt EXTRACTION ERUPTED TOOTH/EXR FAMILY HISTORY Problem Relation Age of Onset Breast Cancer Mother 52 BRCA negative Coronary Artery Disease Father other (basal cell) Father other (squamous) Father Stroke Brother 48 Melanoma Paternal Aunt cause of Ovarian cancer No Family History Social History Social History Narrative Not on file Allergies: ALLERGIES No Known Allergies Medications: progesterone micronized (PROMETRIUM) 100 mg capsule Take 100 mg by mouth once daily. ASHWAGANDHA ROOT EXTRACT ORAL clobetasol (TEMOVATE) 0.05 % ointment Apply 1 application to affected area two times a day. Multivitamin capsule Take 1 capsule by mouth once daily. calcium carbonate/vitamin D3 (CALCIUM 600 + D ORAL) Take by mouth twice daily. Problem List: ACTIVE PROBLEM LIST At High Risk for Breast Cancer - 04/05/2025 Family History of Breast Cancer - 04/05/2025 Dense Breast Tissue - 04/05/2025 Acute Vaginitis - 08/06/2024 Rectal Itching - 08/06/2024 Normal Labor ([facility]) - 03/11/2019 Comment: GBS+PCN Pit/epi prn AROM after abx [place] (Advanced Maternal Age) Multigravida 35+, First Trimester ([facility]) - 08/05/2018 Comment: Low risk genetic testing Mthfr Deficiency Complicating ([facility]) - 08/05/2018 Comment: Taking aspirin throughout this Review of Systems Neurological: Negative for seizures, loss of consciousness and weakness. Psychiatric/Behavioral: Negative for agitation, confusion, hallucinations and self-injury. The patient is nervous/anxious. Physical Exam Vitals and nursing note reviewed. Constitutional: Appearance: She is well-developed. HENT: Head: Normocephalic and atraumatic. Eyes: Conjunctiva/sclera: Conjunctivae normal. Pupils: Pupils are equal, round, and reactive to light. Cardiovascular: Rate and Rhythm: Normal rate and regular rhythm. Heart sounds: Normal heart sounds. Pulmonary: Effort: Pulmonary effort is normal. Breath sounds: Normal breath sounds. Abdominal: General: Bowel sounds are normal. Palpations: Abdomen is soft. Skin: General: Skin is warm and dry. Findings: No rash. Neurological: Mental Status: She is alert and oriented to person, place, and time. Psychiatric: Behavior: Behavior normal. Thought Content: Thought content normal. Judgment: Judgment normal. Comments: No suicidal or homicidal ideation BP 130/70 (BP Site: Left Arm, BP Position: Sitting) Pulse 79 Ht 172.7 cm (5' 8) Wt 65.2 kg (143 lb 11.8 oz) LMP 07/10/2025 (Exact Date) SpO2 100% BMI 21.86 kg/m? ASSESSMENT/PLAN: 1. [place] (generalized anxiety disorder) - ICD9: 300.02, ICD10: F41.1 - uncontrolled start low dose. - FLUOXETINE 10 MG CAPSULE Caesar Pineda DO [facility] 03-16-2025 History of Presen t illness Narrative Radiology Service Progress Note PATIENT NAME: Bam Weber DATE OF SERVICE: March 16, 2025 TIME: 2:44 PM PATIENT IDENTITY VERIFICATION COMPLETED USING TWO (2) IDENTIFIERS: Name and Date of confirmed by patient verbally. FALL SCREENING: Has the patient had 2 falls in the last year or 1 fall with injury or currently using an Ambulatory Assistive Device (Walker, Cane, Wheelchair, Crutches, etc.)? No PATIENT GENDER DATA: Assigned female at . status: : No status: NO. PATIENT RELEVANT IMPLANT DATA REVIEWED: Yes PATIENT PRESENTS WITH AN IMPLANTABLE OR ATTACHED RN MANAGED CARE: No RADIOLOGY DEPARTMENT: Mammography PERIPHERAL IV DATA: Not applicable SIGNED BY: RT Leonora(R) March 16, 2025 2:44 PM documented in this encounter [facility] 03-16-2025 Note HNO ID: [id number] Author: DOMONIQUE UMANA RT(R) Service: ? Author Type: Technologist Type: Progress Notes Filed: 03/16/2025 14:45 Note Text: Radiology Service Progress Note PATIENT NAME: Bam Weber DATE OF SERVICE: March 16, 2025 TIME: 2:44 PM PATIENT IDENTITY VERIFICATION COMPLETED USING TWO (2) IDENTIFIERS: Name and Date of confirmed by patient verbally. FALL SCREENING: Has the patient had 2 falls in the last year or 1 fall with injury or currently using an Ambulatory Assistive Device (Walker, Cane, Wheelchair, Crutches, etc.)? No PATIENT GENDER DATA: Assigned female at . status: : No status: NO. PATIENT RELEVANT IMPLANT DATA REVIEWED: Yes PATIENT PRESENTS WITH AN IMPLANTABLE OR ATTACHED RN MANAGED CARE: No RADIOLOGY DEPARTMENT: Mammography PERIPHERAL IV DATA: Not applicable SIGNED BY: MERCEDES Lea) March 16, 2025 2:44 PM [facility] 03-13-2025 Instructions Rowena Vazquez APRN.[facility] - 03/13/2025 3:48 PM EDT Images from the original note were not included. Breast Self-Exam What is a breast self-exam? A breast self-exam is a technique that a woman can use to examine her breasts to look for changes (such lumps or thickenings) that may signal breast cancer. When a woman detects breast cancer in its early stages, she greatly improves her chances for surviving the disease. Most breast lumps (80 percent) are not cancerous, but you can help ensure your breast health by regularly performing a breast self-exam. When should I perform a breast self-exam? You should perform a breast self-exam once a month, three to five days after your menstrual period ends. If you have stopped menstruating, perform the exam on the same day of each month, such as the first day of the month or a day easy for you to remember, like your date. The exam will take several minutes to perform. With each exam, you will become familiar with the contours and feel of your breasts and will be more alert to changes. 1. The first part of the exam is the inspection, or looking at your breasts. Stand undressed from waist up in front of a large mirror in a well-lit room. Look at your breasts. Don't be alarmed if they do not look equal in size or shape. Most women's breasts are not. With your arms relaxed by your sides, look for any changes in your breasts' size, shape, texture, or skin. Look for any sores as well as any puckering, dimpling, or discoloration of the skin. Inspect your nipples and look for any sores, peeling, or change in the direction of the nipples. 2. Next, place your hands on your hips and press down firmly to tighten the chest muscles beneath your breasts. Turn from side to side so you can inspect the outer part of your breasts. 3. Bend forward toward the mirror. Roll your shoulders and elbows forward to tighten your chest muscles. Your breasts will fall forward. Look for any changes in the shape or contour of your breasts. 4. Now, clasp your hands behind your head and press your hands forward. Again, turn from side to side to inspect your breasts' outer portions. Remember to inspect the border underneath your breasts. You may need to lift your breasts with your hand to see this area. 5. Check your nipples for discharge (fluid). Place your thumb and forefinger on the tissue surrounding the nipple, and pull outward toward the end of the nipple. Look for any discharge. Repeat on your other breast. In the shower 6. The second part of the exam is palpation, or feeling for changes. Use the finger pads of your three middle fingers on each hand to feel for lumps. It is helpful to have your hands slippery with soap and water. Check for any lumps or thickening in your underarm area. Place your left hand on your hip and reach with your right hand to feel in the left armpit. Repeat on the other side. 7. Check both sides for lumps or thickenings below your collarbone. 8. With soapy hands, support the breast with one hand while using the other hand to feel the tissue. Use the flat part of your fingers to press gently into the breast. Follow an up-and-down pattern along the breast, moving from bra line to collarbone. Continue the pattern until you have covered the entire breast. Repeat on the other side. Lying down 9. Next, lie down and place a small pillow or folded towel under your right shoulder. Put your right hand behind your head. Place your left hand on the upper portion of your right breast with fingers together and flat. Body lotion may help to make palpation easier. 10. Think of your breast as a face on a clock. Start at 12 o'clock and move toward 1 o'clock in small circular motions. Continue around the entire [place] until you reach 12 o'clock again. Keep your fingers flat and in constant contact with your breast. When the [place] is complete, move in one inch toward the nipple and complete another [place] around the clock. Continue in this pattern until your entire breast has been palpated. Make sure to palpate the upper outer areas that extend into your armpit. 11. Place your fingers flat and directly on top of your nipple. Feel beneath the nipple for any changes. Gently press your nipple inward. It should move easily. Repeat steps 9, 10, and 11 on your other breast. What should I do if I find a lump? See your physician if you discover any new breast changes, changes that persist after your menstrual cycle, or changes that concern you. Conditions that should be checked by a physician include: An area that is distinctly different from any other area on either breast A lump or thickening in or near the breast or in the underarm that persists through the menstrual cycle A change in the size, shape, or contour of the breast A mass or lump, which may feel as small as a pea A marble-like area under the skin A change in the feel or appearance of the skin on the breast or nipple (dimpled, puckered, scaly, or inflamed [red, warm, or swollen]) Bloody or clear fluid discharge from the nipples Redness of the skin on the breast or nipple References [employer] [employer]. Breast Cancer Accessed 08/25/2013. Ermias P, Chris M, Herman H. Breast disorders and breast cancer screening. In: Rema ROTHMAN, ed. [facility]: Current Clinical Medicine 2010. 2nd ed. [place], [place]: Narendra Martinez; 2010:section 15. Copyright 5087-4483 The [facility]. All rights reserved This information is provided by the [facility] and is not intended to replace the medical advice of your doctor or health care provider. Please consult your health care provider for advice about a specific medical condition. For additional health information, please contact the [facility] at the [facility] or toll-free extension [phone]. If you prefer, you may visit [email or web address] documented in this encounter [facility] 03-13-2025 Note HNO ID: [id number] Author: ROWENA VAZQUEZ APRN.CNP Service: ? Author Type: Nurse Practitioner Type: Progress Notes Filed: 04/05/2025 15:50 Note Text: GENOVEVA Raman Breast [place] [id number] Date of Visit: 03/13/2025 Patient Name: Bam Weber Date of : 1980 New Patient Visit SUBJECTIVE Chief Complaint: Patient presents with: Consult: Patient presents as a consult HPI Bam Weber is a 45 year old female who presents today for new patient consultation related to family history of breast cancer. Family history includes breast cancer in her mother, diagnosed at age 52, BRCA negative. She does not have a past medical history of breast biopsy. She denies current breast concerns including palpable breast lumps or masses, enlarged lymph nodes, pain, tenderness, skin changes, erythema, nipple discharge or breast trauma. Breast density category C - heterogeneously dense There are no exam notes on file for this visit. AGE AT [place] 8 AGE AT FIRST 34 FAMILY HISTORY OF BREAST CANCER Yes (IF YES) NUMBER OF FIRST DEGREE RELATIVES WITH BREAST CANCER 1 PREVIOUS BREAST BIOPSIES No (IF YES) PREVIOUS BREAST BIOPSY WITH ATYPICAL HYPERPLASIA No RACE [place] MODEL RISK 5 YEAR 2 [place] MODEL RISK LIFETIME 19.6 GENETIC TESTING No Family and personal medical histories reviewed and updated. REVIEW OF SYSTEMS: Complete 10 system ROS done and negative except as stated above in the HPI. Current Outpatient Medications Medication Sig Dispense Refill ASHWAGANDHA ROOT EXTRACT ORAL clobetasol (TEMOVATE) 0.05 % ointment Apply 1 application to affected area two times a day. 45 g 1 Multivitamin capsule Take 1 capsule by mouth once daily. calcium carbonate/vitamin D3 (CALCIUM 600 + D ORAL) Take by mouth twice daily. No current facility-administered medications for this visit. I have performed the physical exam on 03/13/2025 - all new findings noted below. PAST MEDICAL HISTORY Diagnosis Date Abnormal Pap smear of cervix Blood dyscrasia mthfr Dense breast tissue 04/05/2025 Pelvic congestion syndrome hemorrhage (HCC) PAST SURGICAL HISTORY Procedure Laterality Date ENDOVENOUS RF ABLATION SAPHENOUS VEIN Left 05/25/2022 left leg, Dr Hunt EXTRACTION ERUPTED TOOTH/EXR Social History Tobacco Use Smoking status: Never Smokeless tobacco: Never Vaping Use Vaping status: Never Used Substance Use Topics Alcohol use: Yes Comment: social Drug use: No FAMILY HISTORY Problem Relation Age of Onset Breast Cancer Mother 52 BRCA negative Coronary Artery Disease Father other (basal cell) Father other (squamous) Father Stroke Brother 48 Melanoma Paternal Aunt cause of Ovarian cancer No Family History The ROS, medical, surgical, family, and social history were reviewed by Rowena Vazquez APRN.CLINICAL DIRECTOR ALLERGIES No Known Allergies Current Outpatient Medications Medication Sig ASHWAGANDHA ROOT EXTRACT ORAL clobetasol (TEMOVATE) 0.05 % ointment Apply 1 application to affected area two times a day. Multivitamin capsule Take 1 capsule by mouth once daily. calcium carbonate/vitamin D3 (CALCIUM 600 + D ORAL) Take by mouth twice daily. No current facility-administered medications for this visit. OBJECTIVE BP 130/85 Pulse 76 Ht 172.7 cm (5' 8) Wt 65.3 kg (144 lb) LMP 02/12/2025 (Exact Date) BMI 21.90 kg/m? BMI 21.90 kg/(m2) Physical Exam BREAST EXAM: RIGHT Skin changes: No Nipple retraction / inversion: No Axillary adenopathy: No Supraclavicular adenopathy: No Palpable masses: No Tenderness: No Nipple discharge: No Lymphedema: No LEFT Skin changes: No Nipple retraction / inversion: No Axillary adenopathy: No Supraclavicular adenopathy: No Palpable masses: No Tenderness: No Nipple discharge: No Lymphedema: No The sensitive examination was discussed with the Patient or Patient's Authorized Perinatal Tech. As applicable, any other physician, advance practice provider, medical student, or other health professional student that will be observing or involved in the sensitive examination for educational or training purposes was discussed with the Patient or Authorized Perinatal Tech. The Patient or Authorized Perinatal Tech has agreed to proceed with the sensitive examination. (Sensitive examination includes inspection and/or palpation of the breasts, pelvis, prostate and anorectal regions) ASSESSMENT/PLAN: 1. At high risk for breast cancer - ICD9: V49.89, ICD10: Z91.89 (primary diagnosis) - MRI BREAST WO/W IVCON BILATERAL - IV CONTRAST (RADIOLOGY PROCEDURE) - NOT ON MAR - MRI BREAST 3D POST PROCESSING 2. Family history of breast cancer - ICD9: V16.3, ICD10: Z80.3 3. Dense breast tissue - ICD9: 793.82, ICD10: R92.30 4. Visit for screening mammogram - ICD9: V76.12, ICD10: Z12.31 - Completed (more content not included)... [facility] 03-13-2025 History of Presen t illness Narrative Images from the original note were not included. Rowena Vazquez APRN-[place] [phone] Date of Visit: 03/13/2025 Patient Name: Bam Weber Date of : 1980 New Patient Visit SUBJECTIVE Chief Complaint: Patient presents with: Consult: Patient presents as a consult HPI Bam Weber is a 45 year old female who presents today for new patient consultation related to family history of breast cancer. Family history includes breast cancer in her mother, diagnosed at age 52, BRCA negative. She does not have a past medical history of breast biopsy. She denies current breast concerns including palpable breast lumps or masses, enlarged lymph nodes, pain, tenderness, skin changes, erythema, nipple discharge or breast trauma. Breast density category C - heterogeneously dense There are no exam notes on file for this visit. AGE AT [place] 8 AGE AT FIRST 34 FAMILY HISTORY OF BREAST CANCER Yes (IF YES) NUMBER OF FIRST DEGREE RELATIVES WITH BREAST CANCER 1 PREVIOUS BREAST BIOPSIES No (IF YES) PREVIOUS BREAST BIOPSY WITH ATYPICAL HYPERPLASIA No RACE [place] MODEL RISK 5 YEAR 2 [place] MODEL RISK LIFETIME 19.6 GENETIC TESTING No Family and personal medical histories reviewed and updated. REVIEW OF SYSTEMS: Complete 10 system ROS done and negative except as stated above in the HPI. Current Outpatient Medications Medication Sig Dispense Refill ASHWAGANDHA ROOT EXTRACT ORAL clobetasol (TEMOVATE) 0.05 % ointment Apply 1 application to affected area two times a day. 45 g 1 Multivitamin capsule Take 1 capsule by mouth once daily. calcium carbonate/vitamin D3 (CALCIUM 600 + D ORAL) Take by mouth twice daily. No current facility-administered medications for this visit. I have performed the physical exam on 03/13/2025 - all new findings noted below. PAST MEDICAL HISTORY Diagnosis Date Abnormal Pap smear of cervix Blood dyscrasia mthfr Dense breast tissue 04/05/2025 Pelvic congestion syndrome hemorrhage (HCC) PAST SURGICAL HISTORY Procedure Laterality Date ENDOVENOUS RF ABLATION SAPHENOUS VEIN Left 05/25/2022 left leg, Dr Hunt EXTRACTION ERUPTED TOOTH/EXR Social History Tobacco Use Smoking status: Never Smokeless tobacco: Never Vaping Use Vaping status: Never Used Substance Use Topics Alcohol use: Yes Comment: social Drug use: No FAMILY HISTORY Problem Relation Age of Onset Breast Cancer Mother 52 BRCA negative Coronary Artery Disease Father other (basal cell) Father other (squamous) Father Stroke Brother 48 Melanoma Paternal Aunt cause of Ovarian cancer No Family History The ROS, medical, surgical, family, and social history were reviewed by Rowena Vazquez APRN.CLINICAL DIRECTOR ALLERGIES No Known Allergies Current Outpatient Medications Medication Sig ASHWAGANDHA ROOT EXTRACT ORAL clobetasol (TEMOVATE) 0.05 % ointment Apply 1 application to affected area two times a day. Multivitamin capsule Take 1 capsule by mouth once daily. calcium carbonate/vitamin D3 (CALCIUM 600 + D ORAL) Take by mouth twice daily. No current facility-administered medications for this visit. OBJECTIVE BP 130/85 Pulse 76 Ht 172.7 cm (5' 8) Wt 65.3 kg (144 lb) LMP 02/12/2025 (Exact Date) BMI 21.90 kg/m BMI 21.90 kg/(m^2) Physical Exam BREAST EXAM: RIGHT Skin changes: No Nipple retraction / inversion: No Axillary adenopathy: No Supraclavicular adenopathy: No Palpable masses: No Tenderness: No Nipple discharge: No Lymphedema: No LEFT Skin changes: No Nipple retraction / inversion: No Axillary adenopathy: No Supraclavicular adenopathy: No Palpable masses: No Tenderness: No Nipple discharge: No Lymphedema: No The sensitive examination was discussed with the Patient or Patient's Authorized Perinatal Tech. As applicable, any other physician, advance practice provider, medical student, or other health professional student that will be observing or involved in the sensitive examination for educational or training purposes was discussed with the Patient or Authorized Perinatal Tech. The Patient or Authorized Perinatal Tech has agreed to proceed with the sensitive examination. (Sensitive examination includes inspection and/or palpation of the breasts, pelvis, prostate and anorectal regions) ASSESSMENT/PLAN: 1. At high risk for breast cancer - ICD9: V49.89, ICD10: Z91.89 (primary diagnosis) - MRI BREAST WO/W IVCON BILATERAL - IV CONTRAST (RADIOLOGY PROCEDURE) - NOT ON MAR - MRI BREAST 3D POST PROCESSING 2. Family history of breast cancer - ICD9: V16.3, ICD10: Z80.3 3. Dense breast tissue - ICD9: 793.82, ICD10: R92.30 4. Visit for screening mammogram - ICD9: V76.12, ICD10: Z12.31 - Completed breast exam - Set up for mammogram, yearly mammogram recommended - Encouraged monthly BSE - APURVA SCREENING W SHAJI Bam Weber is a 45 year old female who presents today for high risk evaluation due to family history of breast cancer in her mother and known breast density on previous mammogram. She denies any breast related concerns or complaints. There are no concerning or suspicious findings demonstrated on today's clinical breast exam. We discussed the report from today's imaging as follows: I have recommended she undergo high risk screening. According to the NCCN guidelines, this includes monthly self-breast exams, a clinical exam every 6-12 months, and annual screening mammograms and MRIs. Per NCCN Guidelines - Breast Cancer Screening and Diagnosis (Version 2.2023): Annual Breast MRI with and without contrast Residual lifetime risk >20% , to begin 10 years prior to when the youngest family member was diagnosed with breast cancer, not prior to age 25 or after risk assessment is determined to be at high risk, or begin at age 40 (which ever comes first) We discussed her [place] Model and Tyrer Cuzick v8 risk scores. Her lifetime breast cancer risk score is > 20%. Surveillance plan will include: Baseline MRI which will be approximately 6 months after her screening mammogram. She will follow up one week after for results and clinical exam. 3D mammography in February annually Clinical breast exam every 6 months alternating between breast Health [facility] and FINANCIAL AID COORDINATOR provider Ongoing evaluation and updated risk factors pertaining to her breast health and plans moving forward She is aware that high risk surveillance is a dynamic process and that she is an active participant in that process with decision making input. She verbalizes understanding of same. She will maintain vigilant breast awareness and continue monthly self breast exams. She will contact us with any concerns. She is clinically stable and has no evidence of disease. Follow up: Return for annual breast imaging, MRI in 6 months. Medical Decision Making: Problems: Low: Stable chronic illness Data: Unique test result(s) reviewed: 3+ Unique test(s) ordered: 2 Risk: Low: Low risk from testing/treatment Medical Decision Making Level: 3 - Low The above reflects my independent exam and review. I saw and examined the patient myself personally. Parts of the HPI, ROS, exam and impression/plan may have been copied from my personal previous clinical note and remain pertinent. Current changes have been made and documented today. Other parts or data were deleted if not relevant for today. Plan as outlined. Rowena Vazquez APRN.CNP I verified the director of medical staff services/nurse documentation in the medical record, and made appropriate changes. I personally performed a history,physical exam and medical decision making. Rowena Vazquez APRN-MILAN, OCN documented in this encounter [facility] 02-19-2025 Note HNO ID: [id number] Author: CAESAR PINEDA DO Service: ? Author Type: Physician Type: Progress Notes Filed: 02/19/2025 10:13 Note Text: Well Adult (Wellness) The history is provided by the patient. No seismic interpreter was used. HISTORY REVIEWED PAST MEDICAL HISTORY Diagnosis Date Abnormal Pap smear of cervix Blood dyscrasia mthfr Pelvic congestion syndrome hemorrhage (HCC) PAST SURGICAL HISTORY Procedure Laterality Date ENDOVENOUS RF ABLATION SAPHENOUS VEIN Left 05/25/2022 left leg, Dr Hunt EXTRACTION ERUPTED TOOTH/EXR FAMILY HISTORY Problem Relation Age of Onset Breast Cancer Mother Stroke Brother Coronary Artery Disease Father Social History Social History Narrative Not on file Allergies: ALLERGIES No Known Allergies Medications: ASHWAGANDHA ROOT EXTRACT ORAL clobetasol (TEMOVATE) 0.05 % ointment Apply 1 application to affected area two times a day. Multivitamin capsule Take 1 capsule by mouth once daily. calcium carbonate/vitamin D3 (CALCIUM 600 + D ORAL) Take by mouth twice daily. DULoxetine (CYMBALTA) 20 mg capsule Take 2 capsules by mouth once daily. (Patient not taking: Reported on 08/06/2024) aspirin, enteric coated (ASPIRIN, ENTERIC COATED) 81 mg EC tablet Take 1 tablet by mouth once daily. (Patient not taking: Reported on 08/06/2024) clopidogrel (PLAVIX) 75 mg tablet Take 1 tablet by mouth once daily. (Patient not taking: Reported on 08/06/2024) Problem List: ACTIVE PROBLEM LIST Acute Vaginitis - 08/06/2024 Rectal Itching - 08/06/2024 Normal Labor ([facility]) - 03/11/2019 Comment: GBS+PCN Pit/epi prn AROM after abx Wilkinson (Advanced Maternal Age) Multigravida 35+, First Trimester ([facility]) - 08/05/2018 Comment: Low risk genetic testing Mthfr Deficiency Complicating ([facility]) - 08/05/2018 Comment: Taking aspirin throughout this Review of Systems All other systems reviewed and are negative. Physical Exam Vitals and nursing note reviewed. Constitutional: Appearance: Normal appearance. She is well-developed and normal weight. HENT: Head: Normocephalic and atraumatic. Right Ear: Tympanic membrane, ear canal and external ear normal. Left Ear: Tympanic membrane, ear canal and external ear normal. Nose: Nose normal. No congestion. Mouth/Throat: Mouth: Mucous membranes are moist. Pharynx: Oropharynx is clear. No oropharyngeal exudate. Eyes: Conjunctiva/sclera: Conjunctivae normal. Pupils: Pupils are equal, round, and reactive to light. Cardiovascular: Rate and Rhythm: Normal rate and regular rhythm. Heart sounds: Normal heart sounds. No murmur heard. Pulmonary: Effort: Pulmonary effort is normal. No respiratory distress. Breath sounds: Normal breath sounds. No wheezing or rales. Chest: Chest wall: No tenderness. Abdominal: General: Bowel sounds are normal. Palpations: Abdomen is soft. Tenderness: There is no guarding or rebound. Musculoskeletal: General: No swelling or tenderness. Normal range of motion. Cervical back: Normal range of motion and neck supple. Lymphadenopathy: Cervical: No cervical adenopathy. Skin: General: Skin is warm and dry. Capillary Refill: Capillary refill takes less than 2 seconds. Findings: No erythema or rash. Neurological: General: No focal deficit present. Mental Status: She is alert and oriented to person, place, and time. Mental status is at baseline. Psychiatric: Mood and Affect: Mood normal. Behavior: Behavior normal. Thought Content: Thought content normal. Judgment: Judgment normal. BP 121/78 (BP Site: Left Arm, BP Position: Sitting, BP Cuff Size: Regular Adult) Pulse 74 Temp 36.8 ?C (98.2 ?F) (Temporal) Wt 65.4 kg (144 lb 2.9 oz) LMP 02/12/2025 (Exact Date) SpO2 100% BMI 21.92 kg/m? ASSESSMENT/PLAN: 1. Well adult exam - ICD9: V70.0, ICD10: Z00.00 - Counseled on healthy diet and regular exercise - COMPLETE BLOOD COUNT AND DIFFERENTIAL - COMPREHENSIVE METABOLIC PANEL - LIPID PANEL, FASTING Caesar Pineda DO [facility] 02-19-2025 History of Presen t illness Narrative Well Adult (Wellness) The history is provided by the patient. No seismic interpreter was used. HISTORY REVIEWED PAST MEDICAL HISTORY Diagnosis Date Abnormal Pap smear of cervix Blood dyscrasia mthfr Pelvic congestion syndrome hemorrhage (HCC) PAST SURGICAL HISTORY Procedure Laterality Date ENDOVENOUS RF ABLATION SAPHENOUS VEIN Left 05/25/2022 left leg, Dr Hunt EXTRACTION ERUPTED TOOTH/EXR FAMILY HISTORY Problem Relation Age of Onset Breast Cancer Mother Stroke Brother Coronary Artery Disease Father Social History Social History Narrative Not on file Allergies: ALLERGIES No Known Allergies Medications: ASHWAGANDHA ROOT EXTRACT ORAL clobetasol (TEMOVATE) 0.05 % ointment Apply 1 application to affected area two times a day. Multivitamin capsule Take 1 capsule by mouth once daily. calcium carbonate/vitamin D3 (CALCIUM 600 + D ORAL) Take by mouth twice daily. DULoxetine (CYMBALTA) 20 mg capsule Take 2 capsules by mouth once daily. (Patient not taking: Reported on 08/06/2024) aspirin, enteric coated (ASPIRIN, ENTERIC COATED) 81 mg EC tablet Take 1 tablet by mouth once daily. (Patient not taking: Reported on 08/06/2024) clopidogrel (PLAVIX) 75 mg tablet Take 1 tablet by mouth once daily. (Patient not taking: Reported on 08/06/2024) Problem List: ACTIVE PROBLEM LIST Acute Vaginitis - 08/06/2024 Rectal Itching - 08/06/2024 Normal Labor ([facility]) - 03/11/2019 Comment: GBS+PCN Pit/epi prn AROM after abx Wilkinson (Advanced Maternal Age) Multigravida 35+, First Trimester ([facility]) - 08/05/2018 Comment: Low risk genetic testing Mthfr Deficiency Complicating ([facility]) - 08/05/2018 Comment: Taking aspirin throughout this Review of Systems All other systems reviewed and are negative. Physical Exam Vitals and nursing note reviewed. Constitutional: Appearance: Normal appearance. She is well-developed and normal weight. HENT: Head: Normocephalic and atraumatic. Right Ear: Tympanic membrane, ear canal and external ear normal. Left Ear: Tympanic membrane, ear canal and external ear normal. Nose: Nose normal. No congestion. Mouth/Throat: Mouth: Mucous membranes are moist. Pharynx: Oropharynx is clear. No oropharyngeal exudate. Eyes: Conjunctiva/sclera: Conjunctivae normal. Pupils: Pupils are equal, round, and reactive to light. Cardiovascular: Rate and Rhythm: Normal rate and regular rhythm. Heart sounds: Normal heart sounds. No murmur heard. Pulmonary: Effort: Pulmonary effort is normal. No respiratory distress. Breath sounds: Normal breath sounds. No wheezing or rales. Chest: Chest wall: No tenderness. Abdominal: General: Bowel sounds are normal. Palpations: Abdomen is soft. Tenderness: There is no guarding or rebound. Musculoskeletal: General: No swelling or tenderness. Normal range of motion. Cervical back: Normal range of motion and neck supple. Lymphadenopathy: Cervical: No cervical adenopathy. Skin: General: Skin is warm and dry. Capillary Refill: Capillary refill takes less than 2 seconds. Findings: No erythema or rash. Neurological: General: No focal deficit present. Mental Status: She is alert and oriented to person, place, and time. Mental status is at baseline. Psychiatric: Mood and Affect: Mood normal. Behavior: Behavior normal. Thought Content: Thought content normal. Judgment: Judgment normal. BP 121/78 (BP Site: Left Arm, BP Position: Sitting, BP Cuff Size: Regular Adult) Pulse 74 Temp 36.8 C (98.2 F) (Temporal) Wt 65.4 kg (144 lb 2.9 oz) LMP 02/12/2025 (Exact Date) SpO2 100% BMI 21.92 kg/m ASSESSMENT/PLAN: 1. Well adult exam - ICD9: V70.0, ICD10: Z00.00 - Counseled on healthy diet and regular exercise - COMPLETE BLOOD COUNT AND DIFFERENTIAL - COMPREHENSIVE METABOLIC PANEL - LIPID PANEL, FASTING Caesar Pineda DO documented in this encounter [facility] 08-06-2024 Note HNO ID: [id number] Author: HILDA HINOJOSA MD Service: ? Author Type: Physician Type: Progress Notes Filed: 08/06/2024 17:05 Note Text: Chief Complaint: Vulvar itching, discharge LMP: Patient's last menstrual period was 07/26/2024 (exact date). CONTRACEPTION: none HPI: Bam Weber is a 44 year old female who presents with Vulvar itching, discharge. The itching is worse at night REVIEW OF SYSTEMS GENERAL: No weight loss, malaise or fevers RESPIRATORY: Negative for cough, hemoptysis, wheezing, COPD, dyspnea or shortness of breath GI: No nausea, vomiting, or diarrhea : No history of dysuria, frequency or incontinence FINANCIAL AID COORDINATOR: Negative for abnormal vaginal bleeding, abnormal vaginal discharge. LMP: Patient's last menstrual period was 07/26/2024 (exact date). . PSYCH: Negative for sleep disturbance, mood disorder and recent psychosocial stressors All other reviewed and negative other than HPI. PAST MEDICAL HISTORY Diagnosis Date Abnormal Pap smear of cervix Blood dyscrasia mthfr Pelvic congestion syndrome hemorrhage PAST SURGICAL HISTORY Procedure Laterality Date ENDOVENOUS RF ABLATION SAPHENOUS VEIN Left 05/25/2022 left leg, Dr Hunt EXTRACTION ERUPTED TOOTH/EXR Current Outpatient Medications Medication Sig Dispense Refill Multivitamin capsule Take 1 capsule by mouth once daily. calcium carbonate/vitamin D3 (CALCIUM 600 + D ORAL) Take by mouth twice daily. clobetasol (TEMOVATE) 0.05 % ointment Apply 1 application to affected area two times a day. 45 g 1 DULoxetine (CYMBALTA) 20 mg capsule Take 2 capsules by mouth once daily. (Patient not taking: Reported on 08/06/2024) 180 capsule 3 aspirin, enteric coated (ASPIRIN, ENTERIC COATED) 81 mg EC tablet Take 1 tablet by mouth once daily. (Patient not taking: Reported on 08/06/2024) clopidogrel (PLAVIX) 75 mg tablet Take 1 tablet by mouth once daily. (Patient not taking: Reported on 08/06/2024) No current facility-administered medications for this visit. ALLERGIES No Known Allergies Social History Tobacco Use Smoking status: Never Smokeless tobacco: Never Vaping Use Vaping status: Never Used Substance Use Topics Alcohol use: Yes Comment: social Drug use: No PHYSICAL EXAMINATION: BP 120/62 Ht 5' 8 (1.73m) Wt 142 lb (64.4kg) LMP 07/26/2024 BMI 21.60 kg/(m2). General: healthy, alert, cooperative, pleasant, in no acute distress Mood: euthymic Genital Urinary: Females: [place]: There is epithelial thickening of the perianal skin; small external hemorrhoid Urethra: normal meatus, no caruncle, no discharge, non-tender, no masses, no scarring Bladder: non-tender Vagina: no lesion, minimal discharge Cervix: no inflammation, no discharge, no lesions, no stenosis Uterus: normal size, shape, consistency, and position, no palpable masses, normal mobility, good decent Adnexa: non-tender bilaterally, no masses Skin: [place], warm, dry, good turgor ASSESSMENT/PLAN: 1. Acute vaginitis - ICD9: 616.10, ICD10: N76.0 (primary diagnosis) - I doubt there is significant infection - GIANCARLO/TRICHOMONAS NAAT - BACTERIAL VAGINOSIS NAAT - GONORRHEA/CHLAMYDIA NAAT 2. Rectal itching - ICD9: 698.0, ICD10: L29.0 - Clobetasol ointment BID x 8 weeks No follow-ups on file. Hilda Hinojosa MD [facility] 08-06-2024 History of Presen t illness Narrative Chief Complaint: Vulvar itching, discharge LMP: Patient's last menstrual period was 07/26/2024 (exact date). CONTRACEPTION: none HPI: Bam Weber is a 44 year old female who presents with Vulvar itching, discharge. The itching is worse at night REVIEW OF SYSTEMS GENERAL: No weight loss, malaise or fevers RESPIRATORY: Negative for cough, hemoptysis, wheezing, COPD, dyspnea or shortness of breath GI: No nausea, vomiting, or diarrhea : No history of dysuria, frequency or incontinence FINANCIAL AID COORDINATOR: Negative for abnormal vaginal bleeding, abnormal vaginal discharge. LMP: Patient's last menstrual period was 07/26/2024 (exact date). . PSYCH: Negative for sleep disturbance, mood disorder and recent psychosocial stressors All other reviewed and negative other than HPI. PAST MEDICAL HISTORY Diagnosis Date Abnormal Pap smear of cervix Blood dyscrasia mthfr Pelvic congestion syndrome hemorrhage PAST SURGICAL HISTORY Procedure Laterality Date ENDOVENOUS RF ABLATION SAPHENOUS VEIN Left 05/25/2022 left leg, Dr Hunt EXTRACTION ERUPTED TOOTH/EXR Current Outpatient Medications Medication Sig Dispense Refill Multivitamin capsule Take 1 capsule by mouth once daily. calcium carbonate/vitamin D3 (CALCIUM 600 + D ORAL) Take by mouth twice daily. clobetasol (TEMOVATE) 0.05 % ointment Apply 1 application to affected area two times a day. 45 g 1 DULoxetine (CYMBALTA) 20 mg capsule Take 2 capsules by mouth once daily. (Patient not taking: Reported on 08/06/2024) 180 capsule 3 aspirin, enteric coated (ASPIRIN, ENTERIC COATED) 81 mg EC tablet Take 1 tablet by mouth once daily. (Patient not taking: Reported on 08/06/2024) clopidogrel (PLAVIX) 75 mg tablet Take 1 tablet by mouth once daily. (Patient not taking: Reported on 08/06/2024) No current facility-administered medications for this visit. ALLERGIES No Known Allergies Social History Tobacco Use Smoking status: Never Smokeless tobacco: Never Vaping Use Vaping status: Never Used Substance Use Topics Alcohol use: Yes Comment: social Drug use: No PHYSICAL EXAMINATION: BP 120/62 Ht 5' 8 (1.73m) Wt 142 lb (64.4kg) LMP 07/26/2024 BMI 21.60 kg/(m^2). General: healthy, alert, cooperative, pleasant, in no acute distress Mood: euthymic Genital Urinary: Females: Mary Ann: There is epithelial thickening of the perianal skin; small external hemorrhoid Urethra: normal meatus, no caruncle, no discharge, non-tender, no masses, no scarring Bladder: non-tender Vagina: no lesion, minimal discharge Cervix: no inflammation, no discharge, no lesions, no stenosis Uterus: normal size, shape, consistency, and position, no palpable masses, normal mobility, good decent Adnexa: non-tender bilaterally, no masses Skin: [place], warm, dry, good turgor ASSESSMENT/PLAN: 1. Acute vaginitis - ICD9: 616.10, ICD10: N76.0 (primary diagnosis) - I doubt there is significant infection - GIANCARLO/TRICHOMONAS NAAT - BACTERIAL VAGINOSIS NAAT - GONORRHEA/CHLAMYDIA NAAT 2. Rectal itching - ICD9: 698.0, ICD10: L29.0 - Clobetasol ointment BID x 8 weeks No follow-ups on file. Hilda Hinojosa MD documented in this encounter [facility] 01-25-2024 History of Presen t illness Narrative Yearly Exam (Wants to increase Cymbalta. Wants printed order for mammogram . Wants colonoscopy ) The history is provided by the patient. No seismic interpreter was used. HISTORY REVIEWED PAST MEDICAL HISTORY Diagnosis Date Abnormal Pap smear of cervix Blood dyscrasia mthfr Pelvic congestion syndrome hemorrhage PAST SURGICAL HISTORY Procedure Laterality Date ENDOVENOUS RF ABLATION SAPHENOUS VEIN Left 05/25/2022 left leg, Dr Hunt EXTRACTION ERUPTED TOOTH/EXR FAMILY HISTORY Problem Relation Age of Onset Breast Cancer Mother Stroke Brother Coronary Artery Disease Father Social History Social History Narrative Not on file Allergies: ALLERGIES No Known Allergies Medications: aspirin, enteric coated (ASPIRIN, ENTERIC COATED) 81 mg EC tablet Take 1 tablet by mouth once daily. clopidogrel (PLAVIX) 75 mg tablet Take 1 tablet by mouth once daily. Multivitamin capsule Take 1 capsule by mouth once daily. calcium carbonate/vitamin D3 (CALCIUM 600 + D ORAL) Take by mouth twice daily. DULoxetine (CYMBALTA) 20 mg capsule Take 1 capsule by mouth once daily. Problem List: ACTIVE PROBLEM LIST Normal Labor - 03/11/2019 Comment: GBS+PCN Pit/epi prn AROM after abx Wilkinson (Advanced Maternal Age) Multigravida 35+, First Trimester - 08/05/2018 Comment: Low risk genetic testing Mthfr Deficiency Complicating (Hcc) - 08/05/2018 Comment: Taking aspirin throughout this Review of Systems All other systems reviewed and are negative. Physical Exam Vitals and nursing note reviewed. Constitutional: Appearance: Normal appearance. She is well-developed and normal weight. HENT: Head: Normocephalic and atraumatic. Right Ear: Tympanic membrane, ear canal and external ear normal. Left Ear: Tympanic membrane, ear canal and external ear normal. Nose: Nose normal. No congestion. Mouth/Throat: Mouth: Mucous membranes are moist. Pharynx: Oropharynx is clear. No oropharyngeal exudate. Eyes: Conjunctiva/sclera: Conjunctivae normal. Pupils: Pupils are equal, round, and reactive to light. Cardiovascular: Rate and Rhythm: Normal rate and regular rhythm. Heart sounds: Normal heart sounds. No murmur heard. Pulmonary: Effort: Pulmonary effort is normal. No respiratory distress. Breath sounds: Normal breath sounds. No wheezing or rales. Chest: Chest wall: No tenderness. Abdominal: General: Bowel sounds are normal. Palpations: Abdomen is soft. Tenderness: There is no guarding or rebound. Musculoskeletal: General: No swelling or tenderness. Normal range of motion. Cervical back: Normal range of motion and neck supple. Lymphadenopathy: Cervical: No cervical adenopathy. Skin: General: Skin is warm and dry. Capillary Refill: Capillary refill takes less than 2 seconds. Findings: No erythema or rash. Neurological: General: No focal deficit present. Mental Status: She is alert and oriented to person, place, and time. Mental status is at baseline. Psychiatric: Mood and Affect: Mood normal. Behavior: Behavior normal. Thought Content: Thought content normal. Judgment: Judgment normal. BP 114/74 Pulse 63 Temp 36.9 C (98.5 F) (Temporal) Wt 63.9 kg (140 lb 14 oz) LMP 12/25/2022 (Exact Date) SpO2 100% BMI 21.42 kg/m ASSESSMENT/PLAN: 1. Well adult exam - ICD9: V70.0, ICD10: Z00.00 (primary diagnosis) - Counseled on healthy diet and regular exercise - COMPLETE BLOOD COUNT AND DIFFERENTIAL - COMPREHENSIVE METABOLIC PANEL - LIPID PANEL BASIC 2. Fatigue, unspecified type - ICD9: 780.79, ICD10: R53.83 - DULOXETINE 20 MG CAPSULE,DELAYED RELEASE 3. Screening for colon cancer - ICD9: V76.51, ICD10: Z12.11 - COLONOSCOPY SCREENING Caesar Pineda DO documented in this encounter [facility] 01-11-2023 Telephone encounter Note We have been unable to reach your patient to schedule their test. Test Name: vascular US aorta iliac duplex complete 1st Attempt: LVM 01/10 2nd Attempt: LVM 01/11 [facility] 01-11-2023 Miscellaneous Notes We have been unable to reach your patient to schedule their test. Test Name: vascular US aorta iliac duplex complete 1st Attempt: LVM 01/10 2nd Attempt: LVM 01/11 documented in this encounter [facility] 12-12-2022 History of Presen t illness Narrative Physical (Not fasting) Fatigue The history is provided by the patient. No seismic interpreter was used. Fatigue This is a chronic problem. The current episode started more than 1 month ago. The problem occurs constantly. The problem has been unchanged. Associated symptoms include fatigue. Pertinent negatives include no abdominal pain, arthralgias, chest pain, congestion, coughing or rash. HISTORY REVIEWED PAST MEDICAL HISTORY Diagnosis Date Abnormal Pap smear of cervix Blood dyscrasia mthfr Pelvic congestion syndrome hemorrhage PAST SURGICAL HISTORY Procedure Laterality Date ENDOVENOUS RF ABLATION SAPHENOUS VEIN Left 05/25/2022 left leg, Dr Hunt EXTRACTION ERUPTED TOOTH/EXR FAMILY HISTORY Problem Relation Age of Onset Breast Cancer Mother Stroke Brother Coronary Artery Disease Father Social History Social History Narrative Not on file Allergies: ALLERGIES No Known Allergies Medications: Multivitamin capsule Take 1 capsule by mouth once daily. FLUoxetine (PROZAC) 10 mg capsule Take 2 capsules by mouth once daily. calcium carbonate/vitamin D3 (CALCIUM 600 + D ORAL) Take by mouth twice daily. Problem List: ACTIVE PROBLEM LIST Normal Labor - 03/11/2019 Comment: GBS+PCN Pit/epi prn AROM after abx Wilkinson (Advanced Maternal Age) Multigravida 35+, First Trimester - 08/05/2018 Comment: Low risk genetic testing Mthfr Deficiency Complicating (Hcc) - 08/05/2018 Comment: Taking aspirin throughout this Review of Systems Constitutional: Positive for fatigue and malaise/fatigue. HENT: Negative for congestion. Eyes: Negative for discharge and itching. Respiratory: Negative for cough. Cardiovascular: Negative for chest pain and palpitations. Gastrointestinal: Negative for abdominal pain. Endocrine: Negative for cold intolerance and heat intolerance. Genitourinary: Negative for dysuria. Musculoskeletal: Negative for arthralgias. Skin: Negative for rash. Allergic/Immunologic: Negative for environmental allergies and food allergies. Neurological: Negative for dizziness. Hematological: Negative for adenopathy. Psychiatric/Behavioral: The patient is not nervous/anxious. Physical Exam Vitals and nursing note reviewed. Constitutional: Appearance: Normal appearance. She is well-developed and normal weight. HENT: Head: Normocephalic and atraumatic. Right Ear: Tympanic membrane, ear canal and external ear normal. Left Ear: Tympanic membrane, ear canal and external ear normal. Nose: Nose normal. No congestion. Mouth/Throat: Mouth: Mucous membranes are moist. Pharynx: Oropharynx is clear. No oropharyngeal exudate. Eyes: Conjunctiva/sclera: Conjunctivae normal. Pupils: Pupils are equal, round, and reactive to light. Cardiovascular: Rate and Rhythm: Normal rate and regular rhythm. Heart sounds: Normal heart sounds. No murmur heard. Pulmonary: Effort: Pulmonary effort is normal. No respiratory distress. Breath sounds: Normal breath sounds. No wheezing or rales. Chest: Chest wall: No tenderness. Abdominal: General: Bowel sounds are normal. Palpations: Abdomen is soft. Tenderness: There is no guarding or rebound. Musculoskeletal: General: No swelling or tenderness. Normal range of motion. Cervical back: Normal range of motion and neck supple. Lymphadenopathy: Cervical: No cervical adenopathy. Skin: General: Skin is warm and dry. Capillary Refill: Capillary refill takes less than 2 seconds. Findings: No erythema or rash. Neurological: General: No focal deficit present. Mental Status: She is alert and oriented to person, place, and time. Mental status is at baseline. Psychiatric: Mood and Affect: Mood normal. Behavior: Behavior normal. Thought Content: Thought content normal. Judgment: Judgment normal. BP 122/82 Pulse 83 Temp 37.3 C (99.1 F) (Tympanic) Ht 172.7 cm (5' 8) Wt 65.7 kg (144 lb 14.4 oz) LMP 11/24/2022 (Exact Date) BMI 22.03 kg/m ASSESSMENT/PLAN: 1. Well adult exam - ICD9: V70.0, ICD10: Z00.00 (primary diagnosis) - Counseled on healthy diet and regular exercise - Calcium intake with supplements or by diet of 1000 mg/day for under 50, 8775-3667 mg/day for 50+ - CBC + DIFF - COMP METABOLIC PANEL - LIPID PANEL BASIC 2. Fatigue, unspecified type - ICD9: 780.79, ICD10: R53.83 - TSH BLD - VITAMIN D 25 HYDROXY - CYANOCOBALAMIN (VIT B-12) 1,000 MCG/ML INJECTION SOLUTION - DULOXETINE 20 MG CAPSULE,DELAYED RELEASE Caesar Pineda DO documented in this encounter [facility] 06-20-2022 History of Presen t illness Narrative This patient returns after having undergone left small saphenous vein EVLT. Excision and ligation left leg varicose veins on 06/05/2022. She developed numbness of the calf lateral ankle and heel as well as dysesthesias at the heel level consistent with sural nerve injury from the laser procedure. She was treated with a steroid Dosepak and she has taken some anti-inflammatory medication. She states that over the past 2 days the dysesthesia has improved. Physical exam reveals well-healed incisions. Minor ecchymosis. No evidence of hematoma. Venous duplex imaging reveals appropriately ablated small saphenous vein with no evidence of thrombus extension into the deep venous system. The sural nerve cannot be identified in close proximity to the small saphenous vein throughout the course of the calf. Impression: Successful left leg small saphenous EVLT and excision and ligation of varicosities complicated by sural nerve injury from the laser procedure. Plan: I have informed the patient that she presented with unusual venous anatomy that certainly contributed to the nerve injury. At this point, we have agreed that we will not further medicate her and allow some time to see if her condition improves, particularly the dysesthesia. She will keep me informed of her progress. documented in this encounter [facility] 06-05-2022 History of Presen t illness Narrative Office Endovenous/Surgical Procedure Diagnosis: Painful left lower extremity varicose veins. Procedure: Left small saphenous vein EVLT. Excision and ligation left leg varicose veins. 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 Duplex imaging revealed saphenous popliteal junction reflux with reflux extending into numerous branched varicosities. She will undergo left small saphenous vein EVLT with simultaneous excision and ligation of left leg varicose veins to provide symptomatic relief. Endovenous/Surgical Procedure: The varicosities were marked preoperatively while standing. She was transferred to the operating table and placed in a prone position. The left lower extremity was prepped and draped in a sterile fashion. After infiltration with 1% Xylocaine, the left small saphenous vein was accessed at the mid calf level. A small starter sheath was placed and a starter wire was advanced under ultrasound guidance to the level of the saphenous popliteal junction. A 4 [place] sheath was then advanced to the level of the saphenous popliteal junction. The wire and dilator were removed and the laser fiber was advanced and locked into position. The tip of the fiber was positioned 3 cm inferior to the saphenous popliteal junction. Tumescent solution was instilled along the course of the small saphenous vein. A total of 407 J was delivered over an 8 cm length thereby averaging 51 J/cm of energy. The sheath and laser fiber were then removed. Intraoperative ultrasound imaging confirmed location of varicosities. After infiltration of 1% Xylocaine, a series of 4 transverse leg incisions were made thereby exposing all varicosities and branches. Proximal and distal branches were ligated with interrupted 5-0 Vicryl or interrupted 4-0 Vicryl. Tumescent solution was instilled. Varicosities were excised. Incisions were checked hemostasis and reapproximated with interrupted 5-0 nylon. Extremity was cleansed and wrapped appropriately. This patient was immediately ambulatory and pain-free. Anesthesia: 1% Xylocaine, tumescent solution. Specimen: Varicose veins. Estimated Blood Loss: Negligible. Complications: None. Surgeon: Javi Hunt MD UNIVERSAL PROTOCOL / SAFETY CHECKLIST Procedure to be Performed: Left SSV ablation. Excision and ligation of left lower extremity varicose veins. Sign In: A Moment of CARE was completed. Personnel directly involved with the procedure wore the appropriate PPE (Personal Protective Equipment). Patient/Surrogate Stated/Verified: PATIENT VERIFIED(optional for EMERGENT procedures): Patient name, Date of , Relevant allergies, and The intended procedure Time Out Communication: Intended patient and procedure match the source documents. Consent documented and matches the intended procedure. Sign Out: SIGN OUT (optional for EMERGENT procedures): No specimen collected. Post-procedure follow-up management communicated and Plan of Care Visit completed when applicable. [facility] Surgery Laser Vein Ablation Record Bam Weber June [birth year]22 1980 ALLERGIES: ALLERGIES No Known Allergies Current Outpatient Medications Medication Sig Multivitamin capsule Take 1 capsule by mouth once daily. FLUoxetine (PROZAC) 10 mg capsule Take 2 capsules by mouth once daily. calcium carbonate/vitamin D3 (CALCIUM 600 + D ORAL) Take by mouth twice daily. aspirin, enteric coated (ASPIRIN, ENTERIC COATED) 81 mg EC tablet Take 81 mg by mouth once daily. Current Facility-Administered Medications Medication Dose Route Frequency lidocaine 400 mg, sodium bicarbonate 20 mEq in NaCl 0.9% 1,000 mL solution (TUMESCENT WITHOUT EPINEPHrine) SUBCUTANEOUS ONCE lidocaine 200 mg, sodium bicarbonate 10 mEq in NaCl 0.9% 500 mL solution (TUMESCENT WITHOUT EPINEPHrine) SUBCUTANEOUS ONCE Physician: Dr. Hunt Assistants: Mary Martel RN / Javier Astudillo RVT Informed Consent: yes Patient agrees to proceed: yes UNIVERSAL PROTOCOL / SAFETY CHECKLIST Procedure to be performed: Left SSV ablation. Excision and ligation of left lower extremity varicose veins with 4 incisions. Sign in Communication: Completed Time Out: Team Confirms the Correct Patient, Correct Procedure, Correct Site and Site Marking, Correct Position (if applicable). Time: 802 Affirmation of Time Out: N/A Sign Out Discussion: Completed Leg: left SSV Access site: below knee Position: Prone History and Physical date: 03/07/2021 Anything changed since History and Physical complete: No Pre-op Assessment: Ambulatory, Calm, and Oriented Valium Dosage (Oral) : NA Prep: chloraprep Start Time: 803 Lido: 2 % Lidocaine Plain + 8.4% NaBicarb (5:1 mixture). Total injected: 4cc Tumescent Local Mixture:using 1% Lido 1000cc NS with 40cc 1% Lidocaine and 20cc 8.4% Sodium Bicarbonate. Total infused: 350cc Laser: Laser kit # [id number] Expiration date: 09/23/2024 Total procedure time in seconds: 51 Laser energy in joules: 407 Catheter length in cm: 8 Power 8 membreno Laser safety checklist: Eye protection- patient: yes Eye protection- physician: yes Eye protection- nurse: Yes Eye protection- RVT: Yes Laser sign posted: Yes Laser fiber inspected: Yes Dressinx4 gauze, kerlix and coban End Time: 912 Post-op Assessment: ambulatory, alert and oriented, and tolerated procedure with no apparent injury Discharge Instructions: Written Homegoing Instructions given & Reviewed Verbally with 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 Physical exam reveals high pressure, bulging left buttock, perineum and vulvar varicosities. Left posterior leg large, high pressure, palpable varicosities. Left lower extremity venous insufficiency duplex imaging was performed in the office today. I was present during the course of the evaluation. Additionally, I have personally examined this patient with additional ultrasound imaging. Specifically, there is evidence of saphenous popliteal junction reflux with reflux extending into the small saphenous vein measuring 0.51 cm diameter near its origin. Mid calf small saphenous vein measures 0.72 cm diameter. Reflux extends into branched varicosities of the calf measuring 0.45 cm diameter. Also noted are large varicosities of the left labia area measuring 0.95 cm diameter with reflux. Additional perineum/buttock varicosities measure 0.61 cm diameter with reflux. Impression: C2/symptomatic CEAP classification left lower extremity venous disease. 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 Duenas. Painful left vulvar and perineum varicosities. Plan: This patient will be scheduled to undergo left small saphenous vein EVLT with excision and ligation of left leg varicose veins as an office-based procedure with local/tumescent anesthesia. I have detailed and described the endovenous/surgical procedure with its attendant risks and benefits. She understands and wishes to proceed in the near future. At a later date, this patient will require surgical excision and ligation of large, painful left vulvar and perineum varicosities as an outpatient procedure at [facility] under general anesthesia. I have detailed and described my findings and recommendations at length with this patient. She understands and wishes to proceed as outlined above. documented in this encounter [facility] 04-18-2022 History of Presen t illness Narrative Bam Weber is a 42 year old female who presents with a chief complaint of Antiquer Exam (vaginal polyp) SUBJECTIVE Pt here with complaint of vaginal polyp x 3 months. No pain OB History T3 L3 SAB0 IAB0 Ectopic0 Multiple0 Live Births3 OBJECTIVE ALLERGIES No Known Allergies Current Outpatient Medications Medication Sig calcium carbonate/vitamin D3 (CALCIUM 600 + D ORAL) Take by mouth twice daily. aspirin, enteric coated (ASPIRIN, ENTERIC COATED) 81 mg EC tablet Take 81 mg by mouth once daily. FLUoxetine (PROZAC) 10 mg capsule Take 2 capsules by mouth once daily. No current facility-administered medications for this visit. Review of Systems Constitutional: Negative for fatigue and unintentional weight changes Gastrointestinal: Negative for diarrhea, bloody stool, nausea/vomiting and constipation Genitourinary: See HPI Physical Exam BP 120/71 Ht 5' 8 (1.73m) Wt 141 lb (64.0kg) LMP 04/03/2022 BMI 21.44 kg/(m^2). 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 Reassurance given If becomes symptomatic will offer removal MD Clare Chahal MD documented in this encounter [facility] 05-31-2016 History of Past i llness Narrative Problem Noted Date Resolved Date Multigravida of advanced maternal age in second trimester 05/31/2016 08/05/2018 documented as of this encounter (statuses as of 04/18/2022) [facility]09-07-2016 History of Past illness Narrative* Problem Noted Date Resolved Date Multigravida of advanced maternal age in second trimester 05/31/2016 08/05/2018 documented as of this encounter (statuses as of 05/03/2022) [facility] History of Past illness Narrative* Problem Noted Date Resolved Date Multigravida of advanced maternal age in second trimester 05/31/2016 08/05/2018 documented as of this encounter (statuses as of 06/02/2022) [facility] History of Past illness Narrative* Problem Noted Date Resolved Date Multigravida of advanced maternal age in second trimester 05/31/2016 08/05/2018 documented as of this encounter (statuses as of 06/05/2022) [facility] History of Past illness Narrative* Problem Noted Date Resolved Date Multigravida of advanced maternal age in second trimester 05/31/2016 08/05/2018 documented as of this encounter (statuses as of 06/20/2022) [facility] History of Past illness Narrative* Problem Noted Date Resolved Date Multigravida of advanced maternal age in second trimester 05/31/2016 08/05/2018 documented as of this encounter (statuses as of 09/27/2022) [facility] History of Past illness Narrative* Problem Noted Date Resolved Date Multigravida of advanced maternal age in second trimester 05/31/2016 08/05/2018 documented as of this encounter (statuses as of 12/12/2022) [facility] History of Past illness Narrative* Problem Noted Date Diagnosed Date Resolved Date Multigravida of advanced mat ernal age in second trimester 05/31/2016 08/05/2018 documented as of this encounter (statuses as of 10/08/2023) [facility] Diagnosis Obstruction of iliac vein Aftercare following surgery of the circulatory system Aftercare following surgery of the circulatory system, NEC documented in this encounter [facility] Work Phone: Evaluation note* Diagnosis Hymenal remnant Other specified noninflammatory disorder of vagina [facility] Diagnosis Varicose veins of left lower extremity with complications- Primary [facility]* Diagnosis Varicose veins of left lower extremity with pain- Primary Varicose veins of lower extremities with other complications [facility]* Diagnosis Varicose veins of left lower extremity with complications- Primary [facility]* Diagnosis Postoperative visit- Primary Other specified aftercare following surgery [facility]* Diagnosis Well adult exam- Primary Routine general medical examination at a health care facility Fatigue, unspecified type [facility]* Diagnosis Encounter for screening mammogram for breast cancer [facility] Diagnosis Well adult exam- Primary Routine general medical examination at a health care facility Fatigue, unspecified type Screening for colon cancer Special screening for malignant neoplasms, colon [facility] Diagnosis Hyperlipidemia, mixed- Primary Mixed hyperlipidemia Elevated liver enzymes Other nonspecific abnormal serum enzyme levels [facility] Diagnosis Encounter for screening mammogram for malignant neoplasm of breast [facility] Diagnosis Encounter for screening mammogram for malignant neoplasm of breast- Primary Encounter for screening mammogram for malignant neoplasm of breast [facility] Diagnosis Dense breast tissue- Primary [facility]* Diagnosis Acute vaginitis- Primary Vaginitis and vulvovaginitis, unspecified Rectal itching Pruritus ani documented in this encounter [facility] note* Diagnosis Well adult exam- Primary Routine general medical examination at a health care facility documented in this encounter [facility] note* Diagnosis Visit for screening mammogram Other screening mammogram documented in this encounter [facility] note* Diagnosis At high risk for breast cancer- Primary Family history of breast cancer Family history of malignant neoplasm of breast Dense breast tissue Visit for screening mammogram Other screening mammogram Visit for screening mammogram Other screening mammogram [facility]* Diagnosis Screening for heart disease Screening for other and unspecified cardiovascular conditions documented in this encounter [facility] Work Phone: Reason for referral (narrative)* Outpatient Procedure (Routine) - Pending Review Specialty Diagnoses / Procedures Referred By Ghanshyam lunsford Referred To Contact [facility] Diagnoses Varicose veins of left lower extremity with pain Procedures US VENOUS INCOMPETENCY UNL VAS LAB DUP-SCAN XTR VEINS UNILATERAL/LIMITED STUDY Javi Hunt MD [address] [address] [facility] [address] [place] [address] Referral ID Status Reason Start Date Expiration Date Visits Requested Visits Authorized [id number] Pending Review Auto-Generat ed Referral 06/02/2022 06/02/2023 1 1 [facility] for referral (narrative)* Diagnostic Procedure Only (Routine) - Pending Review Specialty Diagnoses / Procedures Referred By Ghanshyam lunsford Referred To Contact [facility] Diagnoses Encounter for screening mammogram for breast cancer Procedures APURVA SCREENING SCREENING MAMMOGRAPHY BI 2-VIEW BREAST INC CAD Caesar Pineda, DO [address] [place] [address] [facility] [address] [place] [address] Referral ID Status Reason Start Date Expiration Date Visits Requested Visits Authorized [id number] Pending Review Auto-Generat ed Referral 10/03/2023 11/01/2024 1 1 [facility] for referral (narrative)* Outpatient Procedure (Routine) - Pending Review Specialty Diagnoses / Procedures Referred By Contac t Referred To Contact [facility] Diagnoses Screening for colon cancer Procedures COLONOSCOPY SCREENING COLONOSCOPY FLX DX W/COLLJ SPEC WHEN PFRMD Caesar Pineda DO [address] [place] [address] [facility] [place] [address] [place] [address] Referral ID Status Reason Start Date Expiration Date Visits Requested Visits Authorized [id number] Pending Review Auto-Generat ed Referral 01/25/2024 01/24/2025 1 1 [facility] for visit Narrative* Imaging (Routine) - Pending Review Specialty Diagnoses / Procedures Referred By Contac t Referred To Contact Radiology Diagnoses Screening for heart disease Procedures CT cardiac scoring wo IV contrast Daylin Montero, PAINTINGS RESTORER-CNM, PAINTINGS RESTORER-CLINICAL DIRECTOR Phone: tel: fax: Referral ID Status Reason Start Date Expiration Date Visits Requested Visits Authorized [id number] Pending Review Perform Procedure 03/09/2025 03/09/2026 [address] [facility] Work Phone: Reason for Referral Status Reason Specialty Diagnoses / Procedures Referred By Contact Referred To Contact Pending Review Radiology Diagnoses Pelvic congestion Varicose veins of both lower extremities with pain Procedures VL VENOUS REFLUX US LOWER EXT BILATERAL Jade Duenas MD [address] [facility] [address] [place] [address] Status Reason Specialty Diagnoses / Procedures Referre d By Contact Referred To Contact Open Radiology Diagnoses Obstruction of iliac vein Procedures VL DUP LOWER EXTREMITY VENOUS LEFT Jade Duenas MD [address] [facility] [address] [place] [address] Specialty Diagnoses / Procedures Referred By Contac t Referred To Contact Radiology Diagnoses Obstruction of iliac vein Aftercare following surgery of the circulatory system Procedures VL US Duplex Aorta IVC Iliac Complete Jade Duenas MD [address] [place] [address] [place] [address] Referral ID Status Reason Start Date Expiration Date V isits Requested Visits Authorized [id number] Pending Review 10/07/2021 10/07/2022 1 1 Specialty Diagnoses / Procedures Referred By Contac t Referred To Contact Breast Diseases Diagnoses Dense breast tissue Procedures CONSULT TO BREAST CENTER OFFICE/OUTPATIENT [facility] 60 MINUTES Lilo Dee APRN.CLINICAL DIRECTOR [address] [place] [address] Referral ID Status Reason Start Date Expiration Date Visits Requested Visits Authorized [id number] Authorized PCP Requested Referral 06/28/2024 06/28/2025 1 1 Assessments Diagnosis Pelvic congestion Pelvic congestion syndrome Varicose veins of both lower extremities with pain Varicose veins of lower extremities with other complications Diagnosis Obstruction of iliac vein Discharge Instructions * Instructions* Ashley Gagnon RN - 08/02/2020 [facility] bring [facility] Information folder on the day of surgery. Please stella the last dose taken (date and time ) on your Daily Medications List provided in your After Visit Summary. Please bring a photo ID and insurance information Do NOT take the following medications on the morning of surgery: VITAMINS TAKE the following medications the morning of your surgery: Wellbutrin You may take your prescription pain medications. You may take Tylenol (Acetaminophen) if needed forpain. No Motrin, Ibuprofen, or Advil 24 hours prior to surgery, or longer if instructed by your surgeon. No Aleve or Naprosyn 3 days prior to surgery, or longer if instructed by your surgeon. If you are on BLOOD THINNERS or ASPIRIN Additional instructions: NONE You will receive a reminder call the day before surgery with your Same Day Surgery arrival time. If you have specific questions, please call your surgeon. documented in this encounter* Instructions* Jan Berger MD - 09/07/2020 Blood Thinner Medication: You may be prescribed a blood thinning medication before or after your procedure. It is important to start or taking resume your current medication as instructed by your doctor. Cholesterol (Statin): You may be prescribed a cholesterol medication known as a statin. It is important to take this medication as instructed by your doctor. One common side effect of this type of medication is muscle aches. If this occurs, you should stop taking it. Pain Control: You may be prescribed an opiate pain medication after your procedure. These are otherwise known as narcotics and should be taken only as prescribed. DO NOT operate a vehicle, heavy machinery, appliances, or drink alcohol while on this medication. For additional pain/swelling relief, you may ice andelevate the surgical site(s). Note: It is normal to have a certain degree of pain after an operation. Our office is only able to prescribe pain medications within a short period after surgery with few exceptions. Due to certain limitations, prescriptions may need to be picked up in person. If requiring a refill over a weekend, we ask that you please call our office before 1:00pm on Sunday. Constipation: One of the side effects of opiate medications is constipation. We recommend that patients take precautions to prevent this: 1. Drink plenty of water (6-8 glasses of 8 oz. per day). 2. Avoid alcohol or excessive caffeine. 3. Eat plenty of fiber (fruits, vegetables and whole grains). 4. Take an over the counter stool softener (Colace or Miralax) as instructed on the bottle. You cantake this each day that you continue to take opiates. Nausea: Some pain medications may cause you to feel nauseous. If this occurs, you can call your doctor who may prescribe anti-nausea medication as needed. Diet: Resume low-fat, low cholesterol diet high in vegetables. Make sure to include protein with each meal while recovering from surgery. If you are on a specific type of diet for your condition, please resume that instead. Activity: DO NOT lift anything over 5 pounds for 2 weeks. You may slowly resume normal activities as tolerated with certain restrictions. Drivin. DO NOT operate a motor vehicle unless released by your doctor 2. DO NOT operate a motor vehicle if you are still on pain medicine 3. DO NOT operate a motor vehicle unless you can safely press the gas and brake, even under emergency conditions. Dressing and Wound Care Instructions: 1. You will be discharged with a small bandage at the site of access. You may take it off the next day. 2. You may wash the area or shower after 24 hours. Emergency: 1. Call 911 if you develop sudden chest pain or shortness of breath. 2. If you develop signs of infection, you should call our office as soon as possible. These include: redness, warmth, severe swelling, pus-like drainage, and fever of >100 degrees Fahrenheit. If you have any additional questions about your surgery, please call our office. documented in this encounter History of Present Illness * Anastasiya Acosta RN - 08/13/2020 4:23 PM EST Bleeding to right groin dressing. Dressing changed and clean, dry, intact. Patient reports some soreness at site. Physician at bedside and aware of bleeding. * Anastasiya Acosta RN - 08/13/2020 4:10 PM EST Bedrest complete. Patient ambulated with stand by assist and denies nausea or dizziness. Able to tolerate PO fluids and crackers without complaint. Instructions given to patient and she verbalized understanding. IV discontinued and pt able to get dressed independently. Incisions to bilateral groinsremain unchanged. Discharged with all personal belongings. documented in this encounter* Trang Hernandez RN - 09/07/2020 3:10 PM EST 1450- Pt has attempted to use bedpan multiple times throughout afternoon with no success. Pt's bladder distended, Bladder scanner not working properly. Dr. Celine hou, order received to straight cath. Also notified that there is no Plavix order. Order received for one time dose of Plavix. documented in this encounter Advance Directives No Advanced Directives Records FoundLatest Code Status on File Code Status Date Activated Date Inactivated Comments Full Code 08/13/2020 9:48 AM Latest Code Status on File Code Status Date Activated Date Inactivated Comments Full Code 08/13/2020 9:48 AM 08/13/2020 6:59 PM Latest Code Status on File Code Status Date Activated Date Inactivated Comments Full Code 09/07/2020 8:56 AM Full Code 08/13/2020 9:48 AM 08/13/2020 6:59 PM Latest Code Status on File Code Status Date Activated Date Inactivated Comments Full Code 09/07/2020 8:56 AM 09/07/2020 6:57 PM Latest Code Status on File Code Status Date Activated Date Inactivated Comments Full Code 09/07/2020 8:56 AM 09/07/2020 6:57 PM Full Code 08/13/2020 9:48 AM 08/13/2020 6:59 PM Documents on File Type Date Recorded Patient Perinatal Tech Expl anation Advance Directive(s) 03/11/2019 1:36 PM Summary Purpose Family History No Family History Records FoundNo Family History Records FoundNo Family History Records FoundNo Family History Records FoundNo Family History Records FoundNo Family History Records FoundNo Family History Records Found Medications Administered Section Inactive Administered Medications - up to 3 most recent administrations Medication Order MAR Action Action Date Dose Rate Site cyanocobalamin 1,000 mcg injection 1,000 mcg, INTRAMUSCULAR, ONCE, 1 dose, On Tu12/12/22 at 1330 Given 12/12/2022 1:19 PM EDT 1,000 mcg Buttocks, Right Additional Source Comments INFORMATION SOURCE (unrecogn ized section and content) DATE CREATED AUTHOR 09/07/2020 [facility] DATE CREATED AUTHOR AUTHOR'S ORGANIZ ATION 10/12/2021 [facility] DATE CREATED AUTHOR AUTHOR'S ORGANIZ ATION 12/17/2021 [facility] DATE CREATED AUTHOR AUTHOR'S ORGANIZ ATION 03/08/2024 [facility] DATE CREATED AUTHOR AUTHOR'S ORGANIZ ATION 04/08/2025 [facility] DATE CREATED AUTHOR AUTHOR'S ORGANIZ ATION 06/08/[address] [facility] DATE CREATED AUTHOR AUTHOR'S ORGANIZ ATION 08/02/2025 [facility] Ordered Prescriptions (unrec ognized section and content) Prescription Sig Dispensed Refills Start Date End Da te aspirin EC 81 MG EC tablet Take 1 tablet by mouth daily 30 tablet 3 09/07/2020 clopidogrel (PLAVIX) 75 MG tablet Take 1 tablet by mouth daily 30 tablet 3 09/07/2020 Care Teams (unrecognized sec tion and content) Clinical Account Executive Relationship Specialty Start Date End Date Chau Trujillo DO [address] [place] [address] [place] [address] PCP - General 05/21/15 Clinical Account Executive Relationship Specialty Start Date End Date Chau Trujillo DO [address] [place] [address] [place] [address] PCP - General 05/21/15 Clinical Account Executive Relationship Specialty Start Date End [place] [address] [place] [address] PCP - General Internal Medicine 09/10/17 Clinical Account Executive Relationship Specialty Start Date End Date [place] [address] PCP - General Internal Medicine 09/10/17 Clinical Account Executive Relationship Specialty Start Date End Date [place] [address] PCP - General Internal Medicine 09/10/17 Clinical Account Executive Relationship Specialty Start Date End Date [place] [address] PCP - General Internal Medicine 09/10/17 Clinical Account Executive Relationship Specialty Start Date End Date [place] [address] PCP - General Internal Medicine 09/10/17 Clinical Account Executive Relationship Specialty Start Date End Date [place] [address] PCP - General Internal Medicine 09/10/17 Clinical Account Executive Relationship Specialty Start Date End Date [place] [address] PCP - General Internal Medicine 09/10/17 Clinical Account Executive Relationship Specialty Start Date End Date Chau Trujillo, DO [address] [place] [address] PCP - General 05/21/15 Clinical Account Executive Relationship Specialty Start Date End Date Caesar Pineda DO [address] [place] [address] PCP - General Family Medicine 12/20/22 Clinical Account Executive Relationship Specialty Start Date End Date Caesar Pineda DO [address] [place] [address] PCP - General Family Medicine 12/20/22 Clinical Account Executive Relationship Specialty Start Date End Date Caesar Pineda DO [address] [place] [address] PCP - General Family Medicine 12/20/22 Clinical Account Executive Relationship Specialty Start Date End Date Caesar Pineda DO [address] [place], [place] [id number] PCP - General Family Medicine 01/29/24 Clinical Account Executive Relationship Specialty Start Date End Date Caesar Pineda DO [address] [place] [address] PCP - General Family Medicine 12/20/22 Clinical Account Executive Relationship Specialty Start Date End Date Caesar Pineda DO [address] [place] [place], [place] [id number] PCP - General Family Medicine 01/29/24 Clinical Account Executive Relationship Specialty Start Date End Date Caesar Pineda DO [address] [place] [address] PCP - General Family Medicine 12/20/22 Clinical Account Executive Relationship Specialty Start Date End Date Caesar Pineda DO [address] [place] [address] PCP - General Family Medicine 12/20/22 Clinical Account Executive Relationship Specialty Start Date End Date Caesar Pineda DO [address] [place] [address] PCP - General Family Medicine 12/20/22 Shirlene Patel APRN.CLINICAL DIRECTOR [address] [place] [address] Chief Sales Officer Family Medicine 08/31/24 Micah Mckeon PAINTINGS RESTORER.CLINICAL DIRECTOR [address] [place] [address] Chief Sales Officer Family Medicine 11/04/24 Clinical Account Executive Relationship Specialty Start Date End Date Caesar Pineda DO [address] [place] [address] PCP - General Family Medicine 12/20/22 Shirlene Patel, PAINTINGS RESTORER.CLINICAL DIRECTOR [address] [place] [address] Chief Sales Officer Family Medicine 08/31/24 Micha Mckeon APRN.CLINICAL DIRECTOR [address] [place] [address] Chief Sales Officer Family Medicine 11/04/24 Clinical Account Executive Relationship Specialty Start Date End Date Caesar Pineda DO [address] [place] [address] PCP - General Family Medicine 12/20/22 Shirlene Patel, PAINTINGS RESTORER.CLINICAL DIRECTOR [address] [place] [address] Chief Sales Officer Family Medicine 08/31/24 Micha Mckeon APRN.CLINICAL DIRECTOR [address] [place] [address] Chief Sales Officer Family Medicine 11/04/24 Clinical Account Executive Relationship Specialty Start Date End Date Caesar Pineda DO [address] [facility] [place] [address] PCP - General 06/01/25 Source Comments (unrecognize d section and content) In the event this informatio n is protected by the Federal Confidentiality of Alcohol and Drug Abuse Patient Records regulations: The Federal rules restrict any use of the information to criminally investigate or prosecute any alcohol or drug abuse patient.[facility] event this information is protected by the Federal Confidentiality of Alcohol and Drug Abuse Patient Records regulations: The Federal rules restrict any use of the information to criminally investigate or prosecute any alcohol or drug abuse patient.[facility] the event this information is protected by the Federal Confidentiality of Alcohol and Drug Abuse Patient Records regulations: The Federal rules restrict any use of the information to criminally investigate or prosecute any alcohol or drug abuse patient.[facility] the event this information is protected by the Federal Confidentiality of Alcohol and Drug Abuse Patient Records regulations: The Federal rules restrict any use of the information to criminally investigate or prosecute any alcohol or drug abuse patient.[facility] the event this information is protected by the Federal Confidentiality of Alcohol and Drug Abuse Patient Records regulations: The Federal rules restrict any use of the information to criminally investigate or prosecute any alcohol or drug abuse patient.[facility] the event this information is protected by the Federal Confidentiality of Alcohol and Drug Abuse Patient Records regulations: The Federal rules restrict any use of the information to criminally investigate or prosecute any alcohol or drug abuse patient.[facility] the event this information is protected by the Federal Confidentiality of Alcohol and Drug Abuse Patient Records regulations: The Federal rules restrict any use of the information to criminally investigate or prosecute any alcohol or drug abuse patient.[facility] the event this information is protected by the Federal Confidentiality of Alcohol and Drug Abuse Patient Records regulations: The Federal rules restrict any use of the information to criminally investigate or prosecute any alcohol or drug abuse patient.[facility] the event this information is protected by the Federal Confidentiality of Alcohol and Drug Abuse Patient Records regulations: The Federal rules restrict any use of the information to criminally investigate or prosecute any alcohol or drug abuse patient.[facility] the event this information is protected by the Federal Confidentiality of Alcohol and Drug Abuse Patient Records regulations: The Federal rules restrict any use of the information to criminally investigate or prosecute any alcohol or drug abuse patient.[facility] the event this information is protected by the Federal Confidentiality of Alcohol and Drug Abuse Patient Records regulations: The Federal rules restrict any use of the information to criminally investigate or prosecute any alcohol or drug abuse patient.[facility] the event this information is protected by the Federal Confidentiality of Alcohol and Drug Abuse Patient Records regulations: The Federal rules restrict any use of the information to criminally investigate or prosecute any alcohol or drug abuse patient.[facility] the event this information is protected by the Federal Confidentiality of Alcohol and Drug Abuse Patient Records regulations: The Federal rules restrict any use of the information to criminally investigate or prosecute any alcohol or drug abuse patient.[facility] the event this information is protected by the Federal Confidentiality of Alcohol and Drug Abuse Patient Records regulations: The Federal rules restrict any use of the information to criminally investigate or prosecute any alcohol or drug abuse patient.[facility] the event this information is protected by the Federal Confidentiality of Alcohol and Drug Abuse Patient Records regulations: The Federal rules restrict any use of the information to criminally investigate or prosecute any alcohol or drug abuse patient.[facility] the event this information is protected by the Federal Confidentiality of Alcohol and Drug Abuse Patient Records regulations: The Federal rules restrict any use of the information to criminally investigate or prosecute any alcohol or drug abuse patient.[facility] Reason for Visit (unrecogniz ed section and content) Reason Comments Antiquer Exam vaginal polyp Reason Comments Procedure Specialty Diagnoses / Procedures Referred By Ghanshyam t Referred To Contact Vascular Surgery / VASCULAR SURGERY Diagnoses 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 Wants printed order for mammogram . Wants colonoscopy Reason Comments Results Reason Comments Consult C/o vaginal discharg e and itching Reason Comments [facility] Reason Comments Radiology Mammogram Specialty Diagnoses / Procedures Referred By Contac t Referred To Contact [facility] Diagnoses Visit for screening mammogram Procedures APURVA SCREENING W SHAJI SCREENING DIGITAL BREAST TOMOSYNTHESIS BI SCREENING MAMMOGRAPHY BI 2-VIEW BREAST INC CAD Rowena Vazquez, PAINTINGS RESTORER.CLINICAL DIRECTOR [address] [place] [address] Phone: tel: fax: [facility] [address] [place] [address] Referral ID Status Reason Start Date Expiration Date V isits Requested Visits Authorized [id number] Closed Auto-Generate d Referral 03/14/2025 04/12/2026 1 1 Reason Comments Consult Patient presents as a consult Specialty Diagnoses / Procedures Referred By Contac t Referred To Contact Breast Diseases Diagnoses Dense breast tissue Procedures CONSULT TO BREAST CENTER OFFICE[facility]IENT [facility] [facility] [address] MINUTES Lilo Dee, PAINTINGS RESTORER.CLINICAL DIRECTOR [address] [place] [address] Phone: tel: fax: Referral ID Status Reason Start Date Expiration Date V isits Requested Visits Authorized [id number] Closed PCP Requested Referral 06/28/2024 06/28/2025 1 1 FOR RECORDS PERTAINING TO PATIENTS WHO ARE OR HAVE BEEN ENROLLED IN A CHEMICAL DEPENDENCY/SUBSTANCEABUSE PROGRAM, SOME INFORMATION MAY BE OMITTED. This clinical summary was aggregated from multiple sources. Caution should be exercised in using it in the provision of clinical care. This summary normalizes information from multiple sources, and as a consequence, information in this document may materially change the coding, format and clinical context of patient data. In addition, data may be omitted in some cases. CLINICAL DECISIONS SHOULD BE BASED ON THE PRIMARY CLINICAL RECORDS. [employer] provides no warranty or guarantee of the accuracy or completeness of information in this document.
== END | disposition home or self-care (01) ==
LOC: PSN 09:04
PROVIDERS: PCP Family Medicine; Referring Provider Student in an Organized Health Care Education/Training Program; Visit Provider Student in an Organized Health Care Education/Training Program
DX: I49.3 Ventricular premature depolarization (principal)
CPT/HCPCS: 93225; 93226